=== PATIENT | female | born 1975 | race African-American/Black ===

== ENCOUNTER 2017-01-19 16:41 | Emergency (ER) | payer OTHER, MEDICAID ==
[2017-01-19 17:21] LABS: ABSOLUTE LYMPHOCYTES (AUTO) 2.1 10^3/uL (0.5-4.7); ABSOLUTE MONOCYTES (AUTO) 0.4 10^3/uL (0.1-1.4); ABSOLUTE NEUT (AUTO) 3.5 10^3/uL (1.7-8.2); BASOPHILS % (AUTO) 0.4 % (0-2); EOSINOPHILS % (AUTO) 0.6 % (0-6); HEMATOCRIT 40.6 % (36.0-47.0); HEMOGLOBIN 13.6 g/dL (12.0-15.5); HGB HCT DIFFERENCE 0.2; LYMPHOCYTES % (AUTO) 34.2 % (13-45); MEAN CORPUSCULAR HEMOGLOBIN 30.3 pg (27.0-33.4); MEAN CORPUSCULAR HGB CONC 33.4 g/dL (32.0-36.0); MEAN CORPUSCULAR VOLUME 91 fl (80-97); MONOCYTES % (AUTO) 7.2 % (3-13); RED BLOOD COUNT 4.47 10^6/uL (3.72-5.28); RED CELL DISTRIBUTION WIDTH 14.6 % (11.5-14.0); SEGMENTED NEUTROPHILS % (AUTO) 57.6 % (42-78); WHITE BLOOD COUNT 6.1 10^3/uL (4.0-10.5)
[2017-01-19 17:32] LABS: ALANINE AMINOTRANSFERASE 29 U/L (9-52); ALBUMIN 3.9 g/dL (3.5-5.0); ALKALINE PHOSPHATASE 161 U/L (38-126); ANION GAP 15 (5-19); ASPARTATE AMINO TRANSFERASE 17 U/L (14-36); BILIRUBIN,DIRECT 0.3 mg/dL (0.0-0.4); BILIRUBIN,TOTAL 0.4 mg/dL (0.2-1.3); BLOOD UREA NITROGEN 10 mg/dL (7-20); CALCIUM 9.3 mg/dL (8.4-10.2); CARBON DIOXIDE 19 mmol/L (22-30); CHLORIDE 107 mmol/L (98-107); CREATININE RESULT 0.83 mg/dL (0.52-1.25); GLUCOSE 100 mg/dL (75-110); POTASSIUM 4.5 mmol/L (3.6-5.0); SODIUM 140.7 mmol/L (137-145); TOTAL PROTEIN 7.6 g/dL (6.3-8.2)
[2017-01-19 17:34] LABS: ALCOHOL < 10 mg/dL (NONE DETECTED)
--- NOTE | 2017-01-19 17:37 | ER Document Report ---
ED Psych Disorder / Suicide - General Mode of Arrival: Medic Information source: Patient, Emergency Med Personnel TRAVEL OUTSIDE OF THE [place] IN LAST 30 DAYS: No - HPI Patient complains to provider of: Bizarre behavior, Hallucinating <ARTIE CHANG - Last Filed: 01/19/17 18:33> - General Cannot obtain history due to: Altered mental status - HPI Quality of pain: No pain Normal mood: No Associated symptoms: Flight of ideas, Labile, Mandaeism preoccupation, Visual hallucinations <CHINO LINDA - Last Filed: 01/19/17 20:05> - General Chief Complaint: Psych Problem Stated Complaint: PSYCH EVAL Time Seen by Provider: 01/19/17 16:59 Notes: Is a 41-year-old female who comes in after she is talking to herself and seemingly talking to other people. Patient is unable to give me any history as she continues to argue with somebody in the room that is not there. Apparently , was brought in by EMS from her boyfriend's house. She has not been sleeping at home. Possibly given a sleeping pill recently. (CHINO LINDA) - Related Data Allergies/Adverse Reactions: Unable to Assess Allergy (Verified 01/19/17 16:58) Past Medical History - Social History Smoking Status: Unknown if Ever Smoked Chew tobacco use (# tins/day): - unable to obtain Frequency of alcohol use: unable to obtain Drug Abuse: Heroin Patient has suicidal ideation: No Patient has homicidal ideation: No Renal/ Medical History: Denies: Hx Peritoneal Dialysis Psychiatric Medical History: Reports: Hx Bipolar Disorder, Hx Schizophrenia Surgical Hx: Other <ARTIE CHANG - Last Filed: 01/19/17 18:33> - General Cannot obtain history due to: Altered mental status - Social History Family History: None <CHINO LINDA - Last Filed: 01/19/17 20:05> Review of Systems - Review of Systems -: Yes ROS unobtainable due to patient's medical condition <CHINO LINDA - Last Filed: 01/19/17 20:05> Physical Exam - Vital signs Interpretation: Normal - General General appearance: Alert - Respiratory Respiratory status: No respiratory distress Breath sounds: Normal - Cardiovascular Rhythm: Regular - Abdominal Inspection: Normal Tenderness: Nontender - Extremities General upper extremity: Normal inspection, Normal ROM General lower extremity: Normal inspection, Normal ROM - Neurological Neuro grossly intact: Yes - Psychological Associated symptoms: Agitated, Mandaeism preoccupation - Is talking loudly to somebody who is not in the room., Visual hallucinations - Skin Skin Temperature: Warm Skin Moisture: Dry Skin Color: Normal <CHINO LINDA - Last Filed: 01/19/17 20:05> - Vital signs Vitals: Temp Pulse Resp BP Pulse Ox 98.9 F 100 20 118/85 97 01/19/17 16:58 01/19/17 16:58 01/19/17 16:58 01/19/17 16:58 01/19/17 16:58 Course - Laboratory Result Diagrams: 01/19/17 17:00 01/19/17 17:00 <ARTIE CHANG - Last Filed: 01/19/17 18:33> - Laboratory Result Diagrams: 01/19/17 17:00 01/19/17 17:00 <CHINO LINDA - Last Filed: 01/19/17 20:05> - Re-evaluation Re-evalutation: 01/19/17 19:04 Patient is a 41-year-old female who comes in with hallucinations and evangelical preoccupation. Apparently has not been sleeping recently. No acute findings on blood work or urine. Patient will be placed on involuntary commitment paperwork and held for evaluation by mental health in the morning. (CHINO LINDA) - Vital Signs Vital signs: Temp Pulse Resp BP Pulse Ox 98.9 F 100 20 118/85 97 01/19/17 16:58 01/19/17 16:58 01/19/17 16:58 01/19/17 16:58 01/19/17 16:58 - Laboratory Laboratory results interpreted by me: 01/19/17 01/19/17 01/19/17 17:00 17:00 17:00 RDW 14.6 H Carbon Dioxide 19 L Alkaline Phosphatase 161 H Urine Glucose (UA) 50 H Salicylates < 1.0 L Acetaminophen < 10 L Discharge <ARTIE CHANG - Last Filed: 01/19/17 18:33> <CHINO LINDA - Last Filed: 01/19/17 20:05> - Discharge Clinical Impression: Hallucinations Condition: Stable Disposition: OTHER Scribe Attestation: 01/19/17 20:05 I personally performed the services described in the documentation, reviewed and edited the documentation which was dictated to the scribe in my presence, and it accurately records my words and actions. (CHINO LINDA
[2017-01-19 17:48] LABS: APPEARANCE,URINE SLIGHTLY-CLOUDY; BILIRUBIN,URINE NEGATIVE (NEGATIVE); GLUCOSE, URINE 50 mg/dL (NEGATIVE); KETONES,URINE NEGATIVE (NEGATIVE); LEUKOCYTE ESTERASE,URINE NEGATIVE (NEGATIVE); NITRITE,URINE NEGATIVE (NEGATIVE); PROTEIN,URINE NEGATIVE (NEGATIVE); URINE SPECIFIC GRAVITY 1.006; UROBILINOGEN,URINE NEGATIVE mg/dL (<2.0)
[2017-01-19 18:02] LABS: URINE BARBITURATES SCREEN NEGATIVE; URINE METHADONE SCREEN NEGATIVE; URINE OPIATES LOW NEGATIVE; URINE PHENCYCLIDINE SCREEN NEGATIVE
[2017-01-19] MEDS ORDERED: OLANZAPINE 5 MG TAB.RAPDIS PO ONE (18:37)
[2017-01-19] MEDS ORDERED: HALOPERIDOL 1 MG TABLET PO ONE (20:55)
--- NOTE | 2017-01-20 11:17 | ER Document Report ---
Doctor's Note Notes: 01/20/17 11:17 Rounds: Chart reviewed and patient interviewed. Patient says she is here because she has been hearing voices and talking to people. Vital signs are all normal. Labs have also been normal. test was not ordered. Patient not sure when she had her last cycle. She says that she never gets . She is complaining of back pain and wants pain medications. Says that she had MRIs and other studies done in [place] which showed a small protruding disc , which I pointed out to the patient is likely normal. Patient appears to be medically stable for transfer or discharge. Roula López MD
[2017-01-20] MEDS ORDERED: ACETAMINOPHEN SOLN 325 MG/10.15 ML UDCUP PO PRN (11:19)
[2017-01-20] MEDS ORDERED: NICOTINE 21 MG/24 HR PATCH.TD24 TD PRN (18:13)
[2017-01-20] MEDS ORDERED: HALOPERIDOL 5 MG TABLET PO PRN (18:14)
[2017-01-20] MEDS ORDERED: FLUPHENAZINE HCL 2.5 MG TABLET PO SCH (19:00)
[2017-01-20] MEDS ORDERED: FLUPHENAZINE HCL 2.5 MG TABLET PO ONE (20:00)
--- NOTE | 2017-01-21 09:29 | EKG REPORT ---
SEVERITY:- BORDERLINE ECG - SINUS TACHYCARDIA BORDERLINE T WAVE ABNORMALITIES : Confirmed by: Gustavo Koch 21-Jan-2017 09:27:54
--- NOTE | 2017-01-21 09:54 | ER Document Report ---
Doctor's Note Notes: 01/21/17 09:53 This chart reviewed, lab and vital signs have remained stable, patient was interviewed at bedside, patient appears to be responding to internal stimuli as I enter the room as she is talking out loud and appears to be having a conversation with someone that is not in the room, she denies having any complaints at present time, states she took a shower today, no complaints or issues overnight, mental health team is currently trying to find placement for patient
[2017-01-21] MEDS ORDERED: BENZTROPINE MESYLATE 1 MG TABLET PO SCH (10:00)
[2017-01-21] MEDS ORDERED: FLUPHENAZINE HCL 2.5 MG TABLET PO SCH (10:00)
[2017-01-21 16:27] VITALS: BP 131/77
--- NOTE | 2017-01-21 18:28 | ER Document Report ---
ED Psych Disorder / Suicide - General Chief Complaint: Psych Problem Stated Complaint: PSYCH EVAL Time Seen by Provider: 01/20/17 14:00 Mode of Arrival: Medic Information source: Patient TRAVEL OUTSIDE OF THE [place] IN LAST 30 DAYS: No - HPI Patient complains to provider of: Bizarre behavior Onset was: Cannot confirm Quality of pain: No pain, Pressure Severity: None Pain Level: Denies Suicide Risk Factors: Bipolar - Schizoaffective Bipolar Type, Hallucinations, Schizophrenia Normal mood: No Associated symptoms: Auditory hallucinations, Flight of ideas, Manic, Psychomotor agitation, Alevism preoccupation, Tactile hallucinations, Unable to sleep, Visual hallucinations Similar symptoms previously: Yes Recently seen / treated by doctor: No Notes: Observed Patient a while before attempting consult. y responding as though she was being touched by someone. She was noted to be having conversations with multiple people who were note present. She was actively engaged in the conversation as if people were sitting in her room. Patient was at times hysterically laughing, and was noted to be physically moving in her bed as though she was being touched. Approached Patient and asked to speak with her. She asked me to wait a minute while she finished her conversation with God. When complete she could advise who and where she was. During the conversation she was frequently distracted by the voices of "satan" and "god." She was able to focus in short spurts when asked and little information was obtained, however , she shared she was previously taking Prolixin Decoanate, Haldol, Invega, Depakote and she has diabetes, hypertension, and hypercholesteremia. She reported a long mental health history and indicated she was just released from a psychiatric hospital in [facility] three weeks ago. She currently lives with her boyfriend who is 29 years of age and is willing to have her come home when she is discharged. During the evaluation Patient was noted to "change personalities" as evidenced by easily switching between first and third person when talking, showing her body to make a lunging movement when her "identity" changed, and a noticeable voice change as well. At times, Patient demonstrated moments of lucidity and awareness, but most times she actively engaged with her voices and individuals and preferred conversation / interaction with them versus reality. Review of chart revealed she had not slept much and was mostly non-stop talking since arrival. Patient expressed the desire for medication to "sedate the spirits even though I will be sedated as well. Give me anything you got." Patient was alert and oriented to person (at times), place, and situation. Her estimate of time was incorrect. Her mood was pleasant and cooperative, with congruent affect. She denied suicidal / homicidal ideation, intent, or plan. Psychosis was observed and reported in terms of visual, auditory, and tactile hallucinations. Thought processes were disorganized and irrational. Conversational speech was pressured and tangential. Intellectual abilities are estimated within the average range. Recent and remote memory are poor. Attention and concentration were impaired, as was insight, judgment, and impulse control. 1. 295.70 (F25.0) Schizoaffective Disorder, Bipolar Type Impression / Plan: Patient is recommended to continue under IVC. She remains psychotic and responding to internal stimuli. She continues to have difficulty sleeping but demonstrates no aggression or inappropriate behavior. She has moments of lucidity but mostly remains in an alternate reality. ED Physician in agreement with recommendation and disposition. - Related Data Allergies/Adverse Reactions: No Known Allergies Allergy (Unverified 01/20/17 20:22) Past Medical History - General Information source: Patient, Emergency Med Personnel - Social History Smoking Status: Unknown if Ever Smoked Chew tobacco use (# tins/day): - unable to obtain Frequency of alcohol use: unable to obtain Drug Abuse: Heroin Family History: None Patient has suicidal ideation: No Patient has homicidal ideation: No Renal/ Medical History: Denies: Hx Peritoneal Dialysis Psychiatric Medical History: Reports: Hx Bipolar Disorder, Hx Schizophrenia Surgical Hx: Other Physical Exam - Vital signs Vitals: Temp Pulse Resp BP Pulse Ox 98.9 F 100 20 118/85 97 01/19/17 16:58 01/19/17 16:58 01/19/17 16:58 01/19/17 16:58 01/19/17 16:58 Course - Vital Signs Vital signs: Temp Pulse Resp BP Pulse Ox 98.2 F 113 H 18 131/77 H 98 01/21/17 15:16 01/21/17 15:16 01/21/17 06:17 01/21/17 15:16 01/21/17 15:16 - Laboratory Result Diagrams: 01/19/17 17:00 01/19/17 17:00 Laboratory results interpreted by me: 01/19/17 01/19/17 01/19/17 17:00 17:00 17:00 RDW 14.6 H Carbon Dioxide 19 L Alkaline Phosphatase 161 H Urine Glucose (UA) 50 H Salicylates < 1.0 L Acetaminophen < 10 L Discharge - Discharge Clinical Impression: Hallucinations, Schizoaffective disorder, bipolar type Condition: Stable Disposition: PSYCH HOSP/UNIT Additional Instructions: Eliana Pimentel on 01.21.2017 Scribe Attestation: 01/19/17 20:05 I personally performed the services described in the documentation, reviewed and edited the documentation which was dictated to the scribe in my presence, and it accurately records my words and actions.
== END 2017-01-21 16:37 ==
LOC: ER 16:41
DX: F25.0 Schizoaffective disorder, bipolar type (principal); I10 Essential (primary) hypertension; E11.9 Type 2 diabetes mellitus without complications; M54.9 Dorsalgia, unspecified
CPT/HCPCS: 93005; 99285; 36415; 80307 ×4; 84703; 85025; 80053; 81001; 93010; J3490 ×7

== ENCOUNTER 2017-04-18 13:19 | Emergency (ER) | payer MEDICAID, OTHER ==
--- NOTE | 2017-04-18 13:38 | ER Document Report ---
ED Psych Disorder / Suicide - General Mode of Arrival: Medic Information source: Patient, Emergency Med Personnel Cannot obtain history due to: Other - psychosis TRAVEL OUTSIDE OF THE [place] IN LAST 30 DAYS: No - HPI Normal mood: No Similar symptoms previously: Yes <RENEE BOWEN - Last Filed: 04/18/17 13:50> <YVONNE RIZVI - Last Filed: 04/18/17 14:37> <DONNIE KRUSE - Last Filed: 04/18/17 17:58> - General Chief Complaint: Psych Problem Stated Complaint: ALTERED MENTAL STATUS Time Seen by Provider: 04/18/17 13:30 Notes: Patient is a 41-year-old female who presents to the emergency department today secondary to visual and auditory hallucinations. Patient has been off her psychiatric medications for an unknown period of time. Patient has a diagnosis of schizophrenia and bipolar disorder and has had numerous inpatient stays in psychiatric facilities. Patient had an identical presentation to this emergency department on 01/19/2017. Upon entry into the room, the patient is talking quite fast and loudly to someone who is not in the room. Patient states that she is here because "she does not have anything to do". History is limited secondary to the patient's psychosis. (RENEE BOWEN) - HPI Notes: Observed Patient for awhile before attempting evaluation: Patient is noted to be having conversations with multiple people (patient was alone in room). Patient appeared to be receiving command hallucinations; "What?...Why do I want to fight?" Patient is also noted to clap and laugh at times during these "conversations." She does attempt to keep her eyes closed and is noted to be physically moving in her bed as though she was being touched. During evaluation, she was actively engaged in the conversation as if multiple people were sitting in her room. When clinician asked how the patient was feeling, patient replied "not good....What am I supposed to say y'all...now that is rude..." Patient continued to state "I don't want to be here...just want to go back to the grave...my boring life..." Patient was asked if she had any questions for the clinician; she requested ice water. When clinician came back with ice water, patient was actively engaged in a conversation, eyes open and looking at the wall. Upon entering, patient requested clinician to wait a minute to finish her conversation(again it is noted the patient was alone in the room until clinician entered). She was able to focus in short spurts but quickly derailed with disorganized thought process. Patient was alert and orientation was difficult to determine but it appears she is aware she is in the hospital. Mood is manic with labile affect. Patient appears to make some suicidal comments; it is unclear the context since she is presenting in acute psychosis. Psychosis was observed and reported in terms of visual, auditory, and tactile hallucinations. Thought processes were disorganized and irrational. Conversational speech was pressured and tangential. Intellectual abilities are estimated within the average range. Cognitive functions are impaired (i.e. attention, concentration, insight, judgement and impulse control). 1. 295.70 (F25.0) Schizoaffective Disorder, Bipolar Type per history Impression / Plan: Patient is recommended for IVC. She presences in acute psychotic and responding to internal stimuli. She has moments of lucidity but mostly remains in an alternate reality. Broderick Domingo was consulted on the care and management of this patient; attending physician in agreement with recommendation and disposition. (YVONNE RIZVI) - Related Data Allergies/Adverse Reactions: No Known Allergies Allergy (Verified 04/18/17 13:35) Past Medical History - General Information source: [facility], [facility] Records Cannot obtain history due to: Other - due to psychosis - Social History Smoking Status: Unknown if Ever Smoked Lives with: Family Family History: None Psychiatric Medical History: Reports: Hx Bipolar Disorder, Hx Schizophrenia Surgical Hx: Negative <RENEE BOWEN - Last Filed: 04/18/17 13:50> Review of Systems - Review of Systems -: Yes ROS unobtainable due to patient's medical condition <RENEE BOWEN - Last Filed: 04/18/17 13:50> Physical Exam <RENEE BOWEN - Last Filed: 04/18/17 13:50> <YVONNE RIZVI - Last Filed: 04/18/17 14:37> <DONNIE KRUSE - Last Filed: 04/18/17 17:58> - Vital signs Vitals: Temp Pulse Resp BP Pulse Ox 98.8 F 133 H 24 H 154/97 H 98 04/18/17 13:32 04/18/17 13:32 04/18/17 13:32 04/18/17 13:32 04/18/17 13:32 - Notes Notes: Physical Exam: General: Alert, appears well. HEENT: Normocephalic. Atraumatic. PERRLA. Extraocular movements intact. Oropharynx clear. Neck: Supple. Respiratory: No respiratory distress. Abdominal: Normal Inspection. No distension. Extremities: Moves all four extremities. Neurological: Normal cognition. AAOx4. Normal speech. Psychological: Agitated, talking quite fast and loudly to someone who is not in the room. Visual and auditory hallucinations. Patient had an identical presentation here on 01/19/2017. Skin: Warm. Dry. Normal color. (RENEE BOWEN) Course - Laboratory Result Diagrams: 04/18/17 14:15 04/18/17 14:15 <YVONNE RIZVI - Last Filed: 04/18/17 14:37> - Laboratory Result Diagrams: 04/18/17 14:15 04/18/17 14:15 - EKG Interpretation by Wy EKG shows normal: Sinus rhythm, [place], Intervals, QRS Complexes, ST-T Waves Rate: Normal - 96 Rhythm: NSR When compared to previous EKG there are: No significant change <DONNIE KRUSE - Last Filed: 04/18/17 17:58> - Vital Signs Vital signs: Temp Pulse Resp BP Pulse Ox 98.8 F 133 H 24 H 154/97 H 98 04/18/17 13:32 04/18/17 13:32 04/18/17 13:32 04/18/17 13:32 04/18/17 13:32 - Laboratory Laboratory results interpreted by ar: 04/18/17 04/18/17 04/18/17 14:05 14:15 14:15 RDW 14.9 H Calcium 10.3 H Alkaline Phosphatase 134 H Urine Protein 30 H Urine Glucose (UA) 50 H Urine Ketones TRACE H Urine Ascorbic Acid 40 H Salicylates < 1.0 L Acetaminophen < 10 L Discharge <RENEE BOWEN - Last Filed: 04/18/17 13:50> <YVONNE RIZVI - Last Filed: 04/18/17 14:37> <DONNIE KRUSE - Last Filed: 04/18/17 17:58> - Discharge Clinical Impression: Schizoaffective disorder, Hallucination, Cocaine abuse, Noncompliance with medication regimen Bipolar disorder Qualifiers: Active/Remission status: currently active Current bipolar episode type: hypomanic Qualified Code(s): F31.0 - Bipolar disorder, current episode hypomanic Condition: Stable Disposition: PSYCH HOSP/UNIT Scribe Attestation: 04/18/17 15:49 I personally performed the services described in the documentation, reviewed and edited the documentation which was dictated to the scribe in my presence, and it accurately records my words and actions. (DONNIE KRUSE) Scribe Documentation - Scribe Written by Coco:: Coco Tirado, 04/18/2017 1400 acting as scribe for :: Harlan <RENEE BOWEN - Last Filed: 04/18/17 13:50>
[2017-04-18 14:37] LABS: ABSOLUTE MONOCYTES (AUTO) 0.3 10^3/uL (0.1-1.4); MEAN CORPUSCULAR HEMOGLOBIN 30.2 pg (27.0-33.4)
[2017-04-18 14:37] LABS: APPEARANCE,URINE SLIGHTLY-CLOUDY; BILIRUBIN,URINE NEGATIVE (NEGATIVE); GLUCOSE, URINE 50 mg/dL (NEGATIVE); KETONES,URINE TRACE mg/dL (NEGATIVE); LEUKOCYTE ESTERASE,URINE NEGATIVE (NEGATIVE); NITRITE,URINE NEGATIVE (NEGATIVE); PROTEIN,URINE 30 mg/dL (NEGATIVE); URINE SPECIFIC GRAVITY 1.026; UROBILINOGEN,URINE NEGATIVE mg/dL (<2.0)
[2017-04-18 14:42] LABS: ABSOLUTE LYMPHOCYTES (AUTO) 1.7 10^3/uL (0.5-4.7); ABSOLUTE NEUT (AUTO) 3.1 10^3/uL (1.7-8.2); BASOPHILS % (AUTO) 0.7 % (0-2); EOSINOPHILS % (AUTO) 0.5 % (0-6); HEMATOCRIT 41.5 % (36.0-47.0); HEMOGLOBIN 13.9 g/dL (12.0-15.5); HGB HCT DIFFERENCE 0.2; LYMPHOCYTES % (AUTO) 32.3 % (13-45); MEAN CORPUSCULAR HGB CONC 33.5 g/dL (32.0-36.0); MEAN CORPUSCULAR VOLUME 90 fl (80-97); MONOCYTES % (AUTO) 6.7 % (3-13); RED BLOOD COUNT 4.59 10^6/uL (3.72-5.28); RED CELL DISTRIBUTION WIDTH 14.9 % (11.5-14.0); SEGMENTED NEUTROPHILS % (AUTO) 59.8 % (42-78); WHITE BLOOD COUNT 5.2 10^3/uL (4.0-10.5)
[2017-04-18 14:48] LABS: URINE BARBITURATES SCREEN NEGATIVE; URINE METHADONE SCREEN NEGATIVE; URINE OPIATES LOW NEGATIVE; URINE PHENCYCLIDINE SCREEN NEGATIVE
[2017-04-18] MEDS ORDERED: HALOPERIDOL 5 MG TABLET PO PRN (14:57)
[2017-04-18] MEDS ORDERED: OLANZAPINE 5 MG TAB.RAPDIS PO ONE (14:57)
[2017-04-18 14:58] LABS: ALANINE AMINOTRANSFERASE 29 U/L (9-52); ALBUMIN 4.1 g/dL (3.5-5.0); ALKALINE PHOSPHATASE 134 U/L (38-126); ANION GAP 11 (5-19); ASPARTATE AMINO TRANSFERASE 19 U/L (14-36); BILIRUBIN,DIRECT 0.3 mg/dL (0.0-0.4); BILIRUBIN,TOTAL 0.6 mg/dL (0.2-1.3); BLOOD UREA NITROGEN 11 mg/dL (7-20); CALCIUM 10.3 mg/dL (8.4-10.2); CARBON DIOXIDE 23 mmol/L (22-30); CHLORIDE 106 mmol/L (98-107); CREATININE RESULT 0.84 mg/dL (0.52-1.25); GLUCOSE 108 mg/dL (75-110); POTASSIUM 4.5 mmol/L (3.6-5.0); SODIUM 140.3 mmol/L (137-145); TOTAL PROTEIN 7.6 g/dL (6.3-8.2)
[2017-04-18] MEDS ORDERED: BENZTROPINE MESYLATE 1 MG TABLET PO SCH (15:00)
[2017-04-18 15:02] LABS: ALCOHOL < 10 mg/dL (NONE DETECTED)
[2017-04-18] MEDS ORDERED: BENZTROPINE MESYLATE 1 MG TABLET PO ONE (17:00)
[2017-04-18] MEDS: FLUPHENAZINE HCL 2.5 MG TABLET PO SCH (18:16)
--- NOTE | 2017-04-18 18:46 | EKG REPORT ---
SEVERITY:- NORMAL ECG - SINUS RHYTHM : Confirmed by: Felipe Thompson MD 18-Apr-2017 18:46:17
--- NOTE | 2017-04-19 09:35 | ER Document Report ---
Doctor's Note Notes: 04/19/17 09:34 Patient resting comfortably on stretcher, chart was reviewed including presentation, history, labs and vital signs, patient continues to respond to internal stimuli, makes no eye contact on my questioning and does not answer my questions at all, patient has been seen and evaluated by mental health team who recommended for continued hospitalization until appropriate inpatient treatment can be secured 04/19/17 10:54 Patient remains restrained free at this point in time, she is calm and cooperative although continues to respond to internal stimuli, does not pose a threat to herself or others at this point in time while in the emergency room
[2017-04-19] MEDS: FLUPHENAZINE HCL 2.5 MG TABLET PO SCH (10:17)
[2017-04-19 14:11] VITALS: BP 131/75
== END 2017-04-19 14:21 ==
LOC: ER 13:19
DX: F25.9 Schizoaffective disorder, unspecified (principal); R44.3 Hallucinations, unspecified; F14.10 Cocaine abuse, uncomplicated; F31.0 Bipolar disorder, current episode hypomanic; R41.82 Altered mental status, unspecified; Z91.14 Patient's other noncompliance with medication regimen
CPT/HCPCS: 93005; 99285; 36415; 80307 ×4; 84703; 85025; 80053; 81001; 93010; J3490 ×6

== ENCOUNTER 2017-05-15 03:03 | Emergency (ER) | payer OTHER ==
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
[2017-05-15 04:03] LABS: ABSOLUTE EOSINOPHILS # (AUTO) 0.1 10^3/uL (0.0-0.6); ABSOLUTE LYMPHOCYTES (AUTO) 1.3 10^3/uL (0.5-4.7); ABSOLUTE MONOCYTES (AUTO) 0.4 10^3/uL (0.1-1.4); ABSOLUTE NEUT (AUTO) 3.9 10^3/uL (1.7-8.2); BASOPHILS % (AUTO) 0.2 % (0-2); EOSINOPHILS % (AUTO) 1.1 % (0-6); HEMATOCRIT 38.1 % (36.0-47.0); HEMOGLOBIN 13.3 g/dL (12.0-15.5); HGB HCT DIFFERENCE 1.8; LYMPHOCYTES % (AUTO) 23.8 % (13-45); MEAN CORPUSCULAR HEMOGLOBIN 30.7 pg (27.0-33.4); MEAN CORPUSCULAR VOLUME 88 fl (80-97); MONOCYTES % (AUTO) 6.5 % (3-13); RED BLOOD COUNT 4.34 10^6/uL (3.72-5.28); RED CELL DISTRIBUTION WIDTH 14.8 % (11.5-14.0); SEGMENTED NEUTROPHILS % (AUTO) 68.4 % (42-78); WHITE BLOOD COUNT 5.6 10^3/uL (4.0-10.5)
[2017-05-15 04:17] LABS: ALANINE AMINOTRANSFERASE 29 U/L (9-52); ALKALINE PHOSPHATASE 139 U/L (38-126); ANION GAP 10 (5-19); ASPARTATE AMINO TRANSFERASE 15 U/L (14-36); BILIRUBIN,DIRECT 0.3 mg/dL (0.0-0.4); BILIRUBIN,TOTAL 0.5 mg/dL (0.2-1.3); BLOOD UREA NITROGEN 12 mg/dL (7-20); CALCIUM 10.6 mg/dL (8.4-10.2); CARBON DIOXIDE 23 mmol/L (22-30); CHLORIDE 107 mmol/L (98-107); CREATININE RESULT 0.88 mg/dL (0.52-1.25); GLUCOSE 114 mg/dL (75-110); POTASSIUM 4.1 mmol/L (3.6-5.0); SODIUM 140.2 mmol/L (137-145); TOTAL PROTEIN 7.6 g/dL (6.3-8.2)
[2017-05-15 04:18] LABS: ALCOHOL < 10 mg/dL (NONE DETECTED)
[2017-05-15 04:48] LABS: FREE T3 4.54 pg/mL (2.77-5.27)
[2017-05-15 05:01] LABS: THYROID STIMULATING HORMONE 3.36 uIU/mL (0.47-4.68)
[2017-05-15] MEDS ORDERED: OLANZAPINE INJ/PF 10 MG SDV IM ONE (07:52)
[2017-05-15] MEDS ORDERED: BENZTROPINE MESYLATE INJ 2 MG/2 ML AMPULE IM ONE (07:53)
--- NOTE | 2017-05-15 07:56 | ER Document Report ---
Doctor's Note Notes: 05/15/17 07:55 Patient responding to internal stimuli. Patient acutely psychotic patient was evaluated by psychiatric team recommended medications these were ordered at this time.
[2017-05-15 09:13] LABS: APPEARANCE,URINE CLEAR; BILIRUBIN,URINE NEGATIVE (NEGATIVE); GLUCOSE, URINE NEGATIVE (NEGATIVE); KETONES,URINE TRACE mg/dL (NEGATIVE); LEUKOCYTE ESTERASE,URINE NEGATIVE (NEGATIVE); NITRITE,URINE NEGATIVE (NEGATIVE); PROTEIN,URINE NEGATIVE (NEGATIVE); URINE SPECIFIC GRAVITY 1.008; UROBILINOGEN,URINE NEGATIVE mg/dL (<2.0)
[2017-05-15 09:16] LABS: URINE BARBITURATES SCREEN NEGATIVE; URINE METHADONE SCREEN NEGATIVE; URINE OPIATES LOW NEGATIVE; URINE PHENCYCLIDINE SCREEN NEGATIVE
--- NOTE | 2017-05-15 09:23 | ER Document Report ---
ED General - General Chief Complaint: Suicidal Ideation Stated Complaint: SUICIDAL IDEATIONS Time Seen by Provider: 05/15/17 03:15 TRAVEL OUTSIDE OF THE [place] IN LAST 30 DAYS: No - Related Data Allergies/Adverse Reactions: No Known Allergies Allergy (Verified 04/18/17 13:35) Past Medical History - General Information source: Patient, Law Enforcement, Emergency Med Personnel, [facility] Records - Social History Smoking Status: Unknown if Ever Smoked Chew tobacco use (# tins/day): No Frequency of alcohol use: None Drug Abuse: None Family History: None Renal/ Medical History: Denies: Hx Peritoneal Dialysis Psychiatric Medical History: Reports: Hx Bipolar Disorder, Hx Schizophrenia Physical Exam - Vital signs Vitals: Resp BP Pulse Ox 20 138/108 H 99 05/15/17 03:16 05/15/17 03:16 05/15/17 03:16 Course - Re-evaluation Re-evalutation: 05/15/17 09:23 As the unm hospitaling emergency physician I examined this patient. I reviewed the patient's chart. The patient is currently resting comfortably and requires no acute medical intervention. Disposition per psychiatry. - Vital Signs Vital signs: Temp Pulse Resp BP Pulse Ox 98.7 F 120 H 26 H 94/76 L 100 05/15/17 03:21 05/15/17 03:21 05/15/17 09:15 05/15/17 09:01 05/15/17 09:15 - Laboratory Result Diagrams: 05/15/17 03:40 05/15/17 03:40 Laboratory results interpreted by me: 05/15/17 05/15/17 05/15/17 03:40 03:40 03:40 RDW 14.8 H Glucose 114 H Calcium 10.6 H Alkaline Phosphatase 139 H Urine Ketones Salicylates < 1.0 L Acetaminophen < 10 L Valproic Acid < 10.0 L 05/15/17 08:38 RDW Glucose Calcium Alkaline Phosphatase Urine Ketones TRACE H Salicylates Acetaminophen Valproic Acid Discharge - Discharge Clinical Impression: Suicidal ideation Condition: Stable Disposition: PSYCH HOSP/UNIT
[2017-05-15] MEDS: FLUPHENAZINE HCL 2.5 MG TABLET PO SCH ×2 (10:05→18:26)
[2017-05-15] MEDS: OLANZAPINE 5 MG TABLET PO SCH ×2 (10:05→18:26)
[2017-05-15] MEDS: DIVALPROEX SODIUM 500 MG TAB.SR.24H PO SCH ×2 (10:05→18:25)
[2017-05-15] MEDS: BENZTROPINE MESYLATE 1 MG TABLET PO SCH ×2 (10:05→18:27)
[2017-05-15] MEDS ORDERED: OLANZAPINE 5 MG TABLET PO ONE (13:45)
[2017-05-15] MEDS ORDERED: BENZTROPINE MESYLATE 1 MG TABLET PO ONE (13:45)
[2017-05-15] MEDS ORDERED: DIVALPROEX SODIUM 500 MG TAB.SR.24H PO ONE (14:00)
[2017-05-15] MEDS ORDERED: FLUPHENAZINE HCL 2.5 MG TABLET PO ONE (14:00)
[2017-05-15] MEDS ORDERED: HALOPERIDOL LACTATE INJ 5 MG/1 ML VIAL IM PRN (18:36)
[2017-05-16] MEDS: DIVALPROEX SODIUM 500 MG TAB.SR.24H PO SCH (09:50)
[2017-05-16] MEDS: OLANZAPINE 5 MG TABLET PO SCH (09:51)
[2017-05-16] MEDS: FLUPHENAZINE HCL 2.5 MG TABLET PO SCH (09:51)
[2017-05-16] MEDS: BENZTROPINE MESYLATE 1 MG TABLET PO SCH (09:51)
[2017-05-16 11:10] VITALS: BP 102/61
--- NOTE | 2017-05-16 11:33 | ER Document Report ---
Doctor's Note Notes: 05/16/17 11:31 Patient was seen. Stable at this time. Bed has been obtained for her at an inpatient mental health facility. Nothing acute at this time. Patient is stable from medical standpoint for transfer. EMTLA has been completed. Patient transferred at this time. 05/16/17 11:32
== END 2017-05-16 11:51 ==
LOC: ER 03:03
DX: R45.851 Suicidal ideations (principal); F25.0 Schizoaffective disorder, bipolar type; Z91.14 Patient's other noncompliance with medication regimen; R00.0 Tachycardia, unspecified; R45.4 Irritability and anger
CPT/HCPCS: 99285; 96372; 36415; 84439; 80307 ×4; 84443; 84703; 85025; 80053; 81001; 80164; 84481; J3490 ×8; J0515; J1630

== ENCOUNTER 2017-07-13 16:54 | Emergency (ER) | payer MEDICAID ==
[2017-07-13 18:40] LABS: ABSOLUTE EOSINOPHILS # (AUTO) 0.1 10^3/uL (0.0-0.6); ABSOLUTE LYMPHOCYTES (AUTO) 2.1 10^3/uL (0.5-4.7); ABSOLUTE MONOCYTES (AUTO) 0.4 10^3/uL (0.1-1.4); ABSOLUTE NEUT (AUTO) 3.8 10^3/uL (1.7-8.2); BASOPHILS % (AUTO) 0.2 % (0-2); HEMATOCRIT 37.4 % (36.0-47.0); HEMOGLOBIN 12.9 g/dL (12.0-15.5); HGB HCT DIFFERENCE 1.3; LYMPHOCYTES % (AUTO) 32.8 % (13-45); MEAN CORPUSCULAR HEMOGLOBIN 30.9 pg (27.0-33.4); MEAN CORPUSCULAR HGB CONC 34.4 g/dL (32.0-36.0); MEAN CORPUSCULAR VOLUME 90 fl (80-97); MONOCYTES % (AUTO) 6.3 % (3-13); RED BLOOD COUNT 4.16 10^6/uL (3.72-5.28); RED CELL DISTRIBUTION WIDTH 14.2 % (11.5-14.0); SEGMENTED NEUTROPHILS % (AUTO) 59.7 % (42-78); WHITE BLOOD COUNT 6.3 10^3/uL (4.0-10.5)
[2017-07-13 18:43] LABS: APPEARANCE,URINE SLIGHTLY-CLOUDY; BILIRUBIN,URINE NEGATIVE (NEGATIVE); GLUCOSE, URINE NEGATIVE (NEGATIVE); KETONES,URINE NEGATIVE (NEGATIVE); LEUKOCYTE ESTERASE,URINE NEGATIVE (NEGATIVE); NITRITE,URINE NEGATIVE (NEGATIVE); PROTEIN,URINE NEGATIVE (NEGATIVE); UROBILINOGEN,URINE NEGATIVE mg/dL (<2.0)
[2017-07-13 18:54] LABS: ALANINE AMINOTRANSFERASE 27 U/L (9-52); ALBUMIN 4.1 g/dL (3.5-5.0); ALKALINE PHOSPHATASE 150 U/L (38-126); ANION GAP 9 (5-19); ASPARTATE AMINO TRANSFERASE 18 U/L (14-36); BILIRUBIN,DIRECT 0.4 mg/dL (0.0-0.4); BILIRUBIN,TOTAL 0.5 mg/dL (0.2-1.3); BLOOD UREA NITROGEN 12 mg/dL (7-20); CALCIUM 9.1 mg/dL (8.4-10.2); CARBON DIOXIDE 24 mmol/L (22-30); CHLORIDE 107 mmol/L (98-107); CREATININE RESULT 0.83 mg/dL (0.52-1.25); GLUCOSE 93 mg/dL (75-110); POTASSIUM 3.8 mmol/L (3.6-5.0); TOTAL PROTEIN 7.5 g/dL (6.3-8.2)
[2017-07-13 19:01] LABS: URINE BARBITURATES SCREEN NEGATIVE; URINE METHADONE SCREEN NEGATIVE; URINE OPIATES LOW NEGATIVE; URINE PHENCYCLIDINE SCREEN NEGATIVE
[2017-07-13 19:11] LABS: ALCOHOL < 10 mg/dL (NONE DETECTED)
[2017-07-13] MEDS ORDERED: DIPHENHYDRAMINE HCL 50 MG CAPSULE PO ONE (20:52)
[2017-07-13] MEDS ORDERED: HALOPERIDOL 5 MG TABLET PO ONE (20:52)
--- NOTE | 2017-07-13 20:52 | ER Document Report ---
ED General - General Chief Complaint: Psych Problem Stated Complaint: ALTERED MENTAL STATUS Time Seen by Provider: 07/13/17 18:13 Mode of Arrival: Medic Information source: Patient Notes: This is a 41-year-old female with a history of schizoaffective disorder, bipolar type who is brought in by EMS because of "isabel". Patient when asked why she is here she said that "that is between me and the spirit". The patient does appear somewhat agitated and tangential. She denies any suicidal homicidal ideations. TRAVEL OUTSIDE OF THE [place] IN LAST 30 DAYS: No - HPI Onset: Just prior to arrival Onset/Duration: Gradual Quality of pain: No pain Severity: None Pain Level: Denies Associated symptoms: denies: Chest pain, Fever, Shortness of breath Exacerbated by: Denies Relieved by: Denies Similar symptoms previously: Yes Recently seen / treated by doctor: No - Related Data Allergies/Adverse Reactions: No Known Allergies Allergy (Verified 06/19/17 19:01) Past Medical History - General Information source: Patient - Social History Smoking Status: Current Every Day Smoker Cigarette use (# per day): Yes - Half pack per day Chew tobacco use (# tins/day): No Frequency of alcohol use: None Drug Abuse: None Family History: None Patient has suicidal ideation: No Patient has homicidal ideation: No - Past Medical History Cardiac Medical History: Reports: Hx Hypercholesterolemia, Hx Hypertension Endocrine Medical History: Reports: Hx Diabetes Mellitus Type 2 Renal/ Medical History: Denies: Hx Peritoneal Dialysis Psychiatric Medical History: Reports: Hx Bipolar Disorder, Hx Schizophrenia Past Surgical History: Reports: Hx Section Review of Systems - Review of Systems Constitutional: denies: Chills, Fever EENT: No symptoms reported Cardiovascular: No symptoms reported Respiratory: No symptoms reported Gastrointestinal: No symptoms reported Genitourinary: No symptoms reported Female Genitourinary: No symptoms reported Musculoskeletal: No symptoms reported Skin: No symptoms reported Hematologic/Lymphatic: No symptoms reported Neurological/Psychological: See HPI Physical Exam - Vital signs Vitals: Temp Pulse Resp BP Pulse Ox 98.5 F 92 16 106/42 L 98 07/13/17 16:54 07/13/17 16:54 07/13/17 16:54 07/13/17 16:54 07/13/17 16:54 Notes: Physical exam: GENERAL: 41-year-old female, alert and oriented 3, no acute distress. HEAD: Atraumatic, normocephalic. EYES: Pupils equal round and reactive to light, extraocular movements intact, sclera anicteric, conjunctiva are normal. ENT: TMs normal, nares patent, oropharynx clear without exudates. Moist mucous membranes. NECK: Normal range of motion, supple without obvious mass or JVD. LUNGS: Breath sounds clear to auscultation bilaterally and equal. No wheezes rales or rhonchi. HEART: Regular rate and rhythm without murmurs, rubs or gallops. ABDOMEN: Soft, normoactive bowel sounds. No tenderness to palpation. No guarding, no rebound. No masses appreciated. EXTREMITIES: Normal range of motion, no pitting or edema. No clubbing or cyanosis. NEUROLOGICAL: Cranial nerves II through XII grossly intact. Normal speech, moving all extremities. PSYCH: Tangential, delusional. SKIN: Warm, Dry, normal turgor, no rashes or lesions noted. Course - Re-evaluation Re-evalutation: 07/14/17 01:39 Patient is medically stable for psychiatric disposition. - Vital Signs Vital signs: Temp Pulse Resp BP Pulse Ox 98.5 F 92 16 106/42 L 98 07/13/17 16:54 07/13/17 16:54 07/13/17 16:54 07/13/17 16:54 07/13/17 16:54 - Laboratory Result Diagrams: 07/13/17 18:20 07/13/17 18:20 Laboratory results interpreted by me: 07/13/17 07/13/17 18:20 18:20 RDW 14.2 H Alkaline Phosphatase 150 H Salicylates < 1.0 L Acetaminophen < 10 L - EKG Interpretation by Wy Rate: Normal Rhythm: NSR - EKG shows normal sinus rhythm with a ventricular rate of 81, no acute ST-T wave changes Discharge - Discharge Clinical Impression: Psychosis Condition: Stable Disposition: PSYCH HOSP/UNIT
[2017-07-13] MEDS ORDERED: LORAZEPAM 1 MG TABLET PO ONE (23:57)
--- NOTE | 2017-07-14 09:15 | EKG REPORT ---
SEVERITY:- ABNORMAL ECG - SINUS RHYTHM NONSPECIFIC ST-T CHANGES INFEROLATERAL LEADS. : Confirmed by: Felipe Thompson MD 14-Jul-2017 09:14:53
--- NOTE | 2017-07-14 10:22 | ER Document Report ---
Doctor's Note Notes: 07/14/17 10:20 Rounds: Chart reviewed and patient interviewed. Patient seems to be very alert and oriented and cooperative this morning. Says she feels better. Wants back pain medicines. Vital signs are all normal. Lab studies were all normal. Patient appears to be medically stable for transfer or discharge. Mental health has assessed the patient and feel she can be discharged for outpatient follow-up. Roula López MD
[2017-07-14 10:38] VITALS: BP 127/75
--- NOTE | 2017-07-14 14:09 | PSYCHOLOGICAL NOTE ---
Psych Note - Psych Note Psych Note: Patient is a 41 year old female who presented to the [facility] ED last evening after EMS brought her in for isabel (laughing inappropriately), auditory hallucinations (talking to people not present), and conversing with herself. Patient reported she is "fine" this morning and didn't remember why she was in the ED. She stated isabel and psychosis were common "before but not now." She reported her only medication is Metformin. She identified she is not seeing a psychiatrist currently but has in the past when she resided in a different state. When confronted about previous inpatient hospitalizations she did not deny. She reported she lives with a female roommate. She described the roommate as "nice" and then went on to say "she controls rules, orders me around but it is her house, talks about me, and tells lies about me." She started eating breakfast at the end of the evaluation. Patient was alert and oriented to person, place, and time. Mood was euthymic with congruent affect. She denied SI/HI and these were not presenting problems. She did not appear to be responding to internal stimuli AEB answering questions appropriately and staying on topic. Thought processes were linear and organized. Conversational speech was WNL for rate, tone and prosody. Intellectual abilities are estimated to be average. Insight, judgment and impulse control are fair AEB linear and organized thoughts. Chart review revealed patient had been to the [facility] ED for psychiatric related reasons current (07/13/17), 05/15/17, 04/18/2017, and 01/19/17. With the exception of current each time she was sent to inpatient ([facility], [facility], [facility] respectively) under an IVC. When confronted about her inpatient stay at [facility] in May 2017 she confirmed she had been discharged with medication but was unable to recall names. Documentation from previous visits noted patient reporting she has been hospitalized before, gets put on medications while inpatient, gets discharged and the medications no longer work. Diagnosis: 295.70 (F25.0) Schizoaffective Disorder, Bipolar Type by history Impression/Plan: Patient is psychiatrically cleared. She does not meet [place] 122[place] IVC criteria. She denied SI/HI since her arrival to the ED. Though she came in with isabel and psychosis she did not present as such during psychiatric evaluation. She was able to stay on topic and answer questions appropriately when addressed. She has been hospitalized inpatient 3 times this year and given she stated she does not have a psychiatrist (and hasn't since residing in another state) indicated she does not follow up with outpatient upon discharge from inpatient settings. Patient was provided with the outpatient resource list which highlighted both MCM numbers. She was instructed to continue medications last prescribed and to follow up with a behavioral health provider within the next 3-[address] Villafana regarding the management and care of patient. ED Physician in agreement with recommendations.
== END 2017-07-14 10:38 | disposition home or self-care (01) ==
LOC: ER 16:54
DX: F25.0 Schizoaffective disorder, bipolar type (principal); I10 Essential (primary) hypertension; E11.9 Type 2 diabetes mellitus without complications; F17.210 Nicotine dependence, cigarettes, uncomplicated
CPT/HCPCS: 93005; 99285; 36415; 80307 ×4; 84443; 85025; 80053; 81001; 93010; J3490 ×2

== ENCOUNTER 2017-10-10 16:53 | Emergency (ER) | payer MEDICAID, OTHER ==
[2017-10-10] MEDS ORDERED: HALOPERIDOL LACTATE INJ 5 MG/1 ML VIAL IM ONE (17:47)
[2017-10-10] MEDS ORDERED: LORAZEPAM INJ 2 MG/1 ML VIAL IM ONE (17:47)
[2017-10-10] MEDS ORDERED: BENZTROPINE MESYLATE INJ 2 MG/2 ML AMPULE IM ONE (17:48)
--- NOTE | 2017-10-10 17:48 | ER Document Report ---
ED Psych Disorder / Suicide - General Chief Complaint: Psych Problem Stated Complaint: PSYCH EVAL Time Seen by Provider: 10/10/17 17:28 Notes: 42-year-old female with acute psychosis. Brought over from outpatient mental health follow-up treatment program. Apparently was speaking in multiple voices. 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 Reportedly has cocaine abuse. Has been extremely manic. Will not carry on a conversation with me. Patient keeps switching from one voice to the next. Starts laughing uncontrollably. TRAVEL OUTSIDE OF THE [place] IN LAST 30 DAYS: No - HPI Patient complains to provider of: Agitated, Bizarre behavior, Hallucinating. No : Suicidal ideation, Suicidal plan - Related Data Allergies/Adverse Reactions: No Known Allergies Allergy (Verified 06/19/17 19:01) Past Medical History - General Information source: Patient, Office, [facility] Records - Social History Smoking Status: Unknown if Ever Smoked Frequency of alcohol use: Unknown Drug Abuse: Cocaine Lives with: Other - Unknown Family History: None, Other - Unknown Patient has suicidal ideation: No Patient has homicidal ideation: No - Past Medical History Cardiac Medical History: Reports: Hx Hypercholesterolemia, Hx Hypertension Endocrine Medical History: Reports: Hx Diabetes Mellitus Type 2 Renal/ Medical History: Denies: Hx Peritoneal Dialysis Psychiatric Medical History: Reports: Hx Bipolar Disorder, Hx Schizophrenia Past Surgical History: Reports: Hx Section Review of Systems - Review of Systems -: Yes ROS unobtainable due to patient's medical condition - Patient uncooperative based on her mental health condition review of system Physical Exam - Vital signs Vitals: Temp Pulse Resp BP Pulse Ox 98.3 F 117 H 20 104/85 98 10/10/17 17:02 10/10/17 17:02 10/10/17 17:02 10/10/17 17:02 10/10/17 17:02 Interpretation: Tachycardic - General General appearance: Appears well, Alert - HEENT Head: Normocephalic, Atraumatic Eyes: Normal Pupils: PERRL - Respiratory Respiratory status: No respiratory distress Chest status: Nontender Breath sounds: Normal Chest palpation: Normal - Cardiovascular Rhythm: Tachycardia Heart sounds: Normal auscultation Murmur: No - Abdominal Inspection: Normal Distension: No distension Bowel sounds: Normal Tenderness: Nontender Organomegaly: No organomegaly - Back Back: Normal, Nontender - Extremities General upper extremity: Normal inspection, Nontender, Normal color, Normal ROM , Normal temperature General lower extremity: Normal inspection, Nontender, Normal color, Normal ROM , Normal temperature, Normal weight bearing. No: Serg's sign - Neurological Neuro grossly intact: Yes Cognition: Normal Orientation: AAOx4 [place] Coma Scale Eye Opening: Spontaneous [place] Coma Scale Verbal: Oriented [place] Coma Scale Motor: Obeys Commands Asha Coma Scale Total: 15 Speech: Normal Motor strength normal: LUE, RUE, LLE, RLE Sensory: Normal - Psychological Associated symptoms: Agitated, Flight of ideas, Tangential speech - Skin Skin Temperature: Warm Skin Moisture: Dry Skin Color: Normal Course - Re-evaluation Re-evalutation: 10/10/17 18:21 After visiting with patient and seen that she had been here multiple times for mental health issues I consulted with Dr. Hieu Villafana with psychology. States that she knows patient. At this time she recommends treating her with some Cogentin and Haldol. I will add some Ativan as well based on this history of cocaine abuse. Will place her on papers and have her evaluated in the morning. - Vital Signs Vital signs: Temp Pulse Resp BP Pulse Ox 98.3 F 117 H 20 104/85 98 10/10/17 17:02 10/10/17 17:02 10/10/17 17:02 10/10/17 17:02 10/10/17 17:02 - Laboratory Result Diagrams: 10/10/17 18:17 10/10/17 18:17 Laboratory results interpreted by me: 10/10/17 18:17 Urine Protein 30 H Urine Urobilinogen 2.0 H - EKG Interpretation by Dc EKG shows normal: Sinus rhythm, [place], Intervals, QRS Complexes, ST-T Waves Discharge - Discharge Clinical Impression: Acute exacerbation of psychosis Condition: Good
[2017-10-10 18:35] LABS: ABSOLUTE LYMPHOCYTES (AUTO) 1.8 10^3/uL (0.5-4.7); ABSOLUTE MONOCYTES (AUTO) 0.4 10^3/uL (0.1-1.4); ABSOLUTE NEUT (AUTO) 2.6 10^3/uL (1.7-8.2); BASOPHILS % (AUTO) 0.3 % (0-2); HEMATOCRIT 39.1 % (36.0-47.0); HEMOGLOBIN 13.5 g/dL (12.0-15.5); LYMPHOCYTES % (AUTO) 36.8 % (13-45); MEAN CORPUSCULAR HEMOGLOBIN 30.8 pg (27.0-33.4); MEAN CORPUSCULAR HGB CONC 34.5 g/dL (32.0-36.0); MEAN CORPUSCULAR VOLUME 89 fl (80-97); MONOCYTES % (AUTO) 7.4 % (3-13); PLATELET COUNT 281 10^3/uL (150-450); RED BLOOD COUNT 4.39 10^6/uL (3.72-5.28); SEGMENTED NEUTROPHILS % (AUTO) 54.5 % (42-78); TOTAL CELLS COUNTED % (AUTO) 100 %; WHITE BLOOD COUNT 4.8 10^3/uL (4.0-10.5)
[2017-10-10 18:41] LABS: APPEARANCE,URINE CLEAR; BILIRUBIN,URINE NEGATIVE (NEGATIVE); GLUCOSE, URINE NEGATIVE (NEGATIVE); KETONES,URINE NEGATIVE (NEGATIVE); LEUKOCYTE ESTERASE,URINE NEGATIVE (NEGATIVE); NITRITE,URINE NEGATIVE (NEGATIVE); PROTEIN,URINE 30 mg/dL (NEGATIVE); URINE SPECIFIC GRAVITY 1.026
[2017-10-10 18:45] LABS: COLOR,URINE YELLOW
[2017-10-10 18:54] LABS: ACETAMINOPHEN < 10 ug/mL (10-30); ALANINE AMINOTRANSFERASE 23 U/L (9-52); ALBUMIN 3.8 g/dL (3.5-5.0); ALCOHOL < 10 mg/dL (NONE DETECTED); ALKALINE PHOSPHATASE 106 U/L (38-126); ANION GAP 9 (5-19); ASPARTATE AMINO TRANSFERASE 19 U/L (14-36); BILIRUBIN,DIRECT 0.1 mg/dL (0.0-0.4); BILIRUBIN,TOTAL 0.4 mg/dL (0.2-1.3); BLOOD UREA NITROGEN 8 mg/dL (7-20); CALCIUM 9.3 mg/dL (8.4-10.2); CARBON DIOXIDE 25 mmol/L (22-30); CHLORIDE 108 mmol/L (98-107); GLUCOSE 88 mg/dL (75-110); SALICYLATE < 1.0 mg/dL (2.0-20.0); SODIUM 141.7 mmol/L (137-145); TOTAL PROTEIN 6.7 g/dL (6.3-8.2)
[2017-10-10 18:55] LABS: URINE AMPHETAMINES SCREEN NEGATIVE; URINE BARBITURATES SCREEN NEGATIVE; URINE BENZODIAZEPINES SCREEN NEGATIVE; URINE COCAINE SCREEN NEGATIVE; URINE MARIJUANA (THC) SCREEN NEGATIVE; URINE METHADONE SCREEN NEGATIVE; URINE PHENCYCLIDINE SCREEN NEGATIVE
[2017-10-10] MEDS ORDERED: ZIPRASIDONE MESYLATE INJ/PF 20 MG SDV IM ONE (20:51)
--- NOTE | 2017-10-11 06:43 | EKG REPORT ---
SEVERITY:- NORMAL ECG - SINUS RHYTHM : Confirmed by: Felipe Thompson MD 11-Oct-2017 06:42:48
--- NOTE | 2017-10-11 09:45 | ER Document Report ---
Doctor's Note Notes: 10/11/17 09:44 Patient was seen yesterday. Was given antipsychotic medications overnight. Patient still quite talkative. Seems a little more stable today. Will follow recommendations for mental health team after their final recommendations are given. Nothing further at this time. 10/11/17 11:23 Patient is wanting to go now. Mental health is seen and states that patient is stable for discharge. Follow-up is secure. Will DC at this time with Haldol and Cogentin. Prior to discharge will give a long-acting Haldol shot before DC. Discharge - Discharge Clinical Impression: Acute exacerbation of psychosis, Schizoaffective disorder, bipolar type Condition: Stable Disposition: HOME, SELF-CARE Instructions: Schizophrenia ([facility]) Additional Instructions: Hallucinations You seem to be having hallucinations. Hallucinations are seeing, hearing, or feeling things that don't exist. These symptoms commonly occur with drug abuse and schizophrenia. Drugs like PCP, LSD, MDMA, peyote, and "psychedelic mushrooms" can cause frightening hallucinations. Users of methamphetamine or crack cocaine often see and feel bugs crawling on their skin. Patients with schizophrenia may hear voices that no one else can hear. The delusions of schizophrenia often involve conspiracies or relationships that are not real. When symptoms are due to drug abuse, the mental state usually improves as the drug wears off. Someone you trust should be with you until you are better, to protect you and calm your fears. Tranquilizer medicine is helpful at controlling hallucinations, anxiety, and deluded thoughts. Get a proper diet and enough sleep. Most patients do very well when they get proper medical treatment and social support. You should return at once if your symptoms get worse, if you are having suicidal thoughts or thoughts about hurting others, or if you feel that you are in danger. Please follow up [facility] in 3-5 days for your continued mental health treatment. You have been given a Haldol Decanoate 100 ML shot that will last 3-4 weeks and prescribed Haldol 5mg twice daily and Cogentin 1mg daily for continued maintenance of the monthly shot given. Please take as prescribed. AT ANY TIME, IF YOUR SYMPTOMS CHANGE SIGNIFICANTLY OR WORSEN OR YOU DEVELOP NEW SYMPTOMS, RETURN TO THE EMERGENCY DEPARTMENT IMMEDIATELY FOR RE-EVALUATION. Prescriptions: Benztropine Mesylate 1 mg PO DAILY 7 Days #7 tablet Haloperidol [Haldol 5 mg Tablet] 5 mg PO BID 7 Days #14 tablet Referrals: [facility] [Outside] - Follow up in 3-5 days
--- NOTE | 2017-10-11 09:58 | PSYCHOLOGICAL NOTE ---
Psych Note - Psych Note Psych Note: Reason for consult: Manic; Hallucination Consent Permissions:none given Pt presents to the ED with [facility] staff member for a manic episode. Pt noted to be talking in 3rd person and having hallucinations. Patient disclosed that she does not have any thoughts of harming herself or others. She disclosed she had obtained outpatient mental health services with [facility]. She continued to disclose that she does have family local but does not talk to them. She confirms she meet with [facility] once after her last [facility] ED visit but refused ACT services; "I talked to them once but didn't follow with them...I don't need ACT." Danielle asked if she tested positive for HPV. Patient was alert and oriented to person, place, and time. Mood was euthymic with congruent affect. She denied SI/HI and these were not presenting problems. She did not appear to be responding to internal stimuli AEB answering questions appropriately and staying on topic (it is noted that when clinician started talking about discharge patient started to look up at ceiling and has since started talking to herself). Thought processes were linear and organized. Conversational speech was WNL for rate, tone and prosody. Intellectual abilities are estimated to be average. Insight, judgment and impulse control are fair AEB linear and organized thoughts. Behavioral Health Team contacted [facility] for updated medications. Patient has not picked up any medications since May 2017. She was also prescribed an Invega monthly shot; however, she never picked it up. Behavioral Health Team contact [facility] to coordinate continued care Medication recommendations per [facility]'s contracted psychiatrist, MD Jacquie are as follows: 1. Haldol Decanoate 100 ML now 2. Haldol 5mg twice daily 3. Cogentin 1 mg daily Impression/Plan: Patient is psychiatrically cleared. She does not meet [place] 122C IVC criteria. She denied SI/HI since her arrival to the ED. Though she came in with isabel and psychosis she did not present as such during psychiatric evaluation. She was able to stay on topic and answer questions appropriately when addressed. This patient is familiar to the [facility] ED and behavioral health team. She has been hospitalized inpatient 3 times in the last 9 months. She has not filled her medications since May. During her last [facility] ED visit she was set up with [facility] for ACT services; patient has refused services for ACT. Patient has obtained outpatient mental health services with [facility] , Behavior Health Team will be contacting them to coordinate continued care ( i.e. to let them know current treatment plan is not effective since patient is noncomplient with medications and has refused ACT services). Patient is noted to have chronic hallucinations; however, patient today demonstrated calm without behaviors indicating she was responding to internal stimuli until clinician started talking about discharge plan. Consulted with Dr. Villafana regarding the management and care of patient. ED Physician in agreement with recommendations and disposition.
[2017-10-11] MEDS ORDERED: HALOPERIDOL DECANOATE INJ 100 MG/1 ML VIAL IM ONE (11:19)
[2017-10-11 11:47] VITALS: BP 137/98
== END 2017-10-11 11:47 | disposition home or self-care (01) ==
LOC: ER 16:53
DX: F25.0 Schizoaffective disorder, bipolar type (principal); F14.10 Cocaine abuse, uncomplicated; I10 Essential (primary) hypertension; E11.9 Type 2 diabetes mellitus without complications
CPT/HCPCS: 93005; 99285; 96372; 36415; 80307 ×4; 85025; 81025; 80053; 81001; 93010; J0515; J1631; J1630; J2060; J3486

== ENCOUNTER 2017-10-24 17:54 | Emergency (ER) | payer MEDICAID, OTHER ==
--- NOTE | 2017-10-24 18:56 | ER Document Report ---
ED Psych Disorder / Suicide <RIZVIYVONNE - Last Filed: 10/25/17 10:16> <MK HART - Last Filed: 10/25/17 19:38> - General Mode of Arrival: Medic Information source: Patient, Law Enforcement, Emergency Med Personnel, [facility] Records, Outside Facility Records Cannot obtain history due to: Uncooperative TRAVEL OUTSIDE OF THE [place] IN LAST 30 DAYS: No - HPI Patient complains to provider of: Bizarre behavior, Hallucinating, Homicidal ideation, Suicidal ideation Onset: Other - Unknown Onset was: Cannot confirm Quality of pain: No pain Suicide Risk Factors: Bipolar, Hallucinations, Schizophrenia, Substance abuse, Other mental health dx., Other - Unable to care for herself Normal mood: No Associated symptoms: Auditory hallucinations, Uncooperative Similar symptoms previously: Yes Recently seen / treated by doctor: Yes - Anny Crum <TAE PICKARD - Last Filed: 10/26/17 12:27> - General Chief Complaint: Psych Problem Stated Complaint: IVC Time Seen by Provider: 10/24/17 18:22 Notes: 42-year-old female with a history of paranoid schizophrenia, bipolar disorder Well-known to staff with multiple emergency department visits presents in the custody of the [facility] department with an IVC. Patient is not cooperative with history. She will not take the covers off of her head. Patient's physician Anny Crum sent the patient over in [facility]'s custody because the patient has been experiencing auditory hallucinations, exhibiting bizarre behaviors, admitted to some suicidal thoughts and she was unable to contract her for safety per the IVC. Patient was sent for stabilization. (TAE PICKARD) - Related Data Allergies/Adverse Reactions: No Known Allergies Allergy (Verified 10/24/17 18:59) Past Medical History - General Information source: Patient Cannot obtain history due to: Uncooperative - Social History Smoking Status: Unknown if Ever Smoked Drug Abuse: Cocaine Lives with: Friend Family History: None, Other - Unknown - Past Medical History Cardiac Medical History: Reports: Hx Hypercholesterolemia, Hx Hypertension Endocrine Medical History: Reports: Hx Diabetes Mellitus Type 2 Renal/ Medical History: Denies: Hx Peritoneal Dialysis Psychiatric Medical History: Reports: Hx Bipolar Disorder, Hx Schizophrenia Past Surgical History: Reports: Hx Section <TAE PICKARD - Last Filed: 10/26/17 12:27> Review of Systems - Review of Systems -: Yes ROS unobtainable due to patient's medical condition <TAE PICKARD - Last Filed: 10/26/17 12:27> Physical Exam - Vital signs Interpretation: Normal - General General appearance: Appears well, Alert - Psychological Associated symptoms: No: Combative <TAE PICKARD - Last Filed: 10/26/17 12:27> - Vital signs Vitals: Temp Pulse Resp BP Pulse Ox 98.2 F 82 18 133/88 H 97 10/24/17 17:56 10/24/17 17:56 10/24/17 17:56 10/24/17 17:56 10/24/17 17:56 Course - Laboratory Result Diagrams: 10/24/17 18:44 10/24/17 18:44 <YVONNE RIZVI - Last Filed: 10/25/17 10:16> - Laboratory Result Diagrams: 10/24/17 18:44 10/24/17 18:44 <MK HART - Last Filed: 10/25/17 19:38> - Laboratory Result Diagrams: 10/24/17 18:44 10/24/17 18:44 <TAE PICKARD - Last Filed: 10/26/17 12:27> - Re-evaluation Re-evalutation: 10/26/17 12:26 Patient remained stable throughout her ED course. will be seen by psych in am ( TAE PICKARD) - Vital Signs Vital signs: Temp Pulse Resp BP Pulse Ox 97.9 F 80 18 120/78 100 10/25/17 10:39 10/25/17 10:39 10/25/17 10:39 10/25/17 10:39 10/25/17 10:39 - Laboratory Laboratory results interpreted by me: 10/24/17 10/24/17 18:44 18:44 RDW 14.6 H Salicylates < 1.0 L Acetaminophen < 10 L Discharge <YVONNE RIZVI - Last Filed: 10/25/17 10:16> <MK HART - Last Filed: 10/25/17 19:38> <TAE PICKARD - Last Filed: 10/26/17 12:27> - Discharge Clinical Impression: Schizoaffective disorder, bipolar type Condition: Stable Disposition: HOME, SELF-CARE Additional Instructions: Hallucinations You seem to be having hallucinations. Hallucinations are seeing, hearing, or feeling things that don't exist. These symptoms commonly occur with drug abuse and schizophrenia. Drugs like PCP, LSD, MDMA, peyote, and "psychedelic mushrooms" can cause frightening hallucinations. Users of methamphetamine or crack cocaine often see and feel bugs crawling on their skin. Patients with schizophrenia may hear voices that no one else can hear. The delusions of schizophrenia often involve conspiracies or relationships that are not real. When symptoms are due to drug abuse, the mental state usually improves as the drug wears off. Someone you trust should be with you until you are better, to protect you and calm your fears. Tranquilizer medicine is helpful at controlling hallucinations, anxiety, and deluded thoughts. Get a proper diet and enough sleep. Most patients do very well when they get proper medical treatment and social support. You should return at once if your symptoms get worse, if you are having suicidal thoughts or thoughts about hurting others, or if you feel that you are in danger. Please follow-up with your outpatient mental health provider, [facility], upon discharge. They report they will be prescribing you your continued medications. AT ANY TIME, IF YOUR SYMPTOMS CHANGE SIGNIFICANTLY OR WORSEN OR YOU DEVELOP NEW SYMPTOMS, RETURN TO THE EMERGENCY DEPARTMENT IMMEDIATELY FOR RE-EVALUATION. Prescriptions: Asenapine Maleate [Saphris] 10 mg SL BID #[id number] tab.subl Referrals: [facility] [Outside] - 10/25/17
[2017-10-24 19:00] LABS: ABSOLUTE EOSINOPHILS # (AUTO) 0.1 10^3/uL (0.0-0.6); ABSOLUTE LYMPHOCYTES (AUTO) 1.7 10^3/uL (0.5-4.7); ABSOLUTE MONOCYTES (AUTO) 0.4 10^3/uL (0.1-1.4); ABSOLUTE NEUT (AUTO) 3.6 10^3/uL (1.7-8.2); BASOPHILS % (AUTO) 0.2 % (0-2); HEMATOCRIT 39.5 % (36.0-47.0); HEMOGLOBIN 13.6 g/dL (12.0-15.5); LYMPHOCYTES % (AUTO) 29.9 % (13-45); MEAN CORPUSCULAR HEMOGLOBIN 31.2 pg (27.0-33.4); MEAN CORPUSCULAR HGB CONC 34.4 g/dL (32.0-36.0); MEAN CORPUSCULAR VOLUME 91 fl (80-97); MONOCYTES % (AUTO) 6.6 % (3-13); PLATELET COUNT 317 10^3/uL (150-450); RED BLOOD COUNT 4.36 10^6/uL (3.72-5.28); RED CELL DISTRIBUTION WIDTH 14.6 % (11.5-14.0); SEGMENTED NEUTROPHILS % (AUTO) 61.3 % (42-78); TOTAL CELLS COUNTED % (AUTO) 100 %; WHITE BLOOD COUNT 5.8 10^3/uL (4.0-10.5)
[2017-10-24 19:05] LABS: ALANINE AMINOTRANSFERASE 27 U/L (9-52); ALBUMIN 3.9 g/dL (3.5-5.0); ALKALINE PHOSPHATASE 122 U/L (38-126); ANION GAP 8 (5-19); ASPARTATE AMINO TRANSFERASE 14 U/L (14-36); BILIRUBIN,DIRECT 0.3 mg/dL (0.0-0.4); BILIRUBIN,TOTAL 0.3 mg/dL (0.2-1.3); BLOOD UREA NITROGEN 9 mg/dL (7-20); CALCIUM 9.7 mg/dL (8.4-10.2); CARBON DIOXIDE 26 mmol/L (22-30); CHLORIDE 106 mmol/L (98-107); GLUCOSE 107 mg/dL (75-110); POTASSIUM 4.3 mmol/L (3.6-5.0); SODIUM 139.9 mmol/L (137-145); TOTAL PROTEIN 7.4 g/dL (6.3-8.2)
[2017-10-25 01:02] LABS: ACETAMINOPHEN < 10 ug/mL (10-30); SALICYLATE < 1.0 mg/dL (2.0-20.0)
--- NOTE | 2017-10-25 08:06 | EKG REPORT ---
SEVERITY:- NORMAL ECG - SINUS RHYTHM : Confirmed by: Felipe Thompson MD 25-Oct-2017 08:06:05
--- NOTE | 2017-10-25 09:53 | ER Document Report ---
Doctor's Note Notes: 10/25/17 09:52 Rounds: Chart reviewed and patient interviewed. Patient says she is feeling better than when she was admitted yesterday. Patient has a history of schizophrenia and bipolar disorder. She was acting rather bizarre and having hallucinations and agitation when she was admitted yesterday. Vital signs are all normal. Labs are essentially normal. Patient appears to be medically stable for transfer or discharge. I believe patient is going to be discharged today. Patient wished to asked me a couple of medical questions. She concluded these questions by telling me that she needed something for her back pain. She said that "you have to give me Percocets" I told her I was not going to give her Percocet or any other medication for her back pain. She was not here to be evaluated and treated for back pain and she should see her chronic pain management provider for her back condition. Roula López MD
--- NOTE | 2017-10-25 10:17 | PSYCHOLOGICAL NOTE ---
Psych Note - Psych Note Psych Note: Reason for consult: IVC Consent Permissions:none given 42-year-old female with a history of paranoid schizophrenia, bipolar disorder Well-known to staff with multiple emergency department visits presents in the custody of the [facility] with an IVC. Patient is not cooperative with history. She will not take the covers off of her head. Patient's physician Anny Crum sent the patient over in [facility] custody because the patient has been experiencing auditory hallucinations, exhibiting bizarre behaviors, admitted to some suicidal thoughts and she was unable to contract her for safety per the IVC. Patient denies thoughts of wanting to hurt herself or others. Patient disclosed some delusions with hallucinations; "Wyatt is not bothering me anymore , he moved to [place]." She reports she remembers getting the Haldol Denconate during her last [facility] ED visit and confirms she has been taking her medications since; "I was wondering, are you going to do my medicines...they gave me rispirdone..that made me feel good, I would like that one." Patient was noted to ask the attending medical doctor about her blood sugar (if it was high) because she use to take metformin. Patient also disclosed back pain and told the doctor he "had to prescribe" her percocet. Patient is also asking for medication for her cramping to Behavioral Health Team. Clinician spoke with Alen of [facility]; patient came into facility manic with bizarre behaviours. Patient was stripping, humming the huber, screaming and taking to people not there. They gave her saphris black linares and patient calmed however started to make comments that she was not Kayla, she was Satan and hoped the injection medication would kill Kayla. Between the initial behavior and concerns of continued psychosis they IVCed the patient for her safety. This is the second time they have seen the patient since starting in there facility. Patient can be seen today as a walk in but they close at noon. Her prescription by her outpatient provider will be Saphris 10mg BID and continued monthly shot. If she can arrive before noon they will write the prescription and give her the shot. Patient was alert and oriented to person, place, and time. Mood was euthymic with congruent affect. She denied suicidal and homicidal ideation. She did not appear to be responding to internal stimuli as evidenced by answering questions appropriately and staying on topic. Thought processes were linear and organized. Conversational speech was within normal for rate, tone and prosody. attention and concentration are good. Intellectual abilities are estimated to be average range. Insight, judgment and impulse control are currently good as evidenced by patient taking her medications and going to her mental health appointments. Medication recommendations per [facility]'s contracted psychiatrist, MD Jacquie are as follows: none at this time. Diagnosis 295.70 (F25.0) Schizoaffective Disorder, Bipolar Type by history Impression/Plan: Patient is recommended for rescind of IVC and is considered psychiatrically cleared. She does not meet [place] IVC criteria. She denied SI/HI since her arrival to the ED. This patient is familiar to the [facility] ED staff and this clinician. She has been hospitalized inpatient 3 times in the last 10 months. The current presentation of the patient is the best the patient has ever presented. She is not manic, is calm, and is able to discuss medications (i.e. patient remembers medications she received during last visit, confirms continued taking her medications and discusses possible new medication options). Patient was noncompliant with her medication and mental health services previous to her previous [facility] ED visit (10/10/2017) at which received the Haladol Decanonate shot; now she is taking her medication and going to her appointments. Patient is noted to have chronic delusions; however, patient today demonstrated calm without behavioral outburst that she has demonstrated in the past (such as screaming, throwing her wig around, and actively having multiple conversations with her hallucinations). Consulted with Dr. Villafana regarding the management and care of patient. ED Physician in agreement with recommendations and disposition.
[2017-10-25 10:40] VITALS: BP 120/78
== END 2017-10-25 10:40 | disposition home or self-care (01) ==
LOC: ER 17:54
DX: F25.0 Schizoaffective disorder, bipolar type (principal); M54.9 Dorsalgia, unspecified; I10 Essential (primary) hypertension; E11.9 Type 2 diabetes mellitus without complications; F14.10 Cocaine abuse, uncomplicated
CPT/HCPCS: 36415; 80053; 80307; 85025; 93005; 93010; 99285

== ENCOUNTER 2017-11-07 23:33 | Emergency (ER) | payer MEDICAID ==
[2017-11-07] MEDS ORDERED: HALOPERIDOL LACTATE INJ 5 MG/1 ML VIAL IM ONE (23:46)
--- NOTE | 2017-11-07 23:50 | ER Document Report ---
ED General - General Chief Complaint: Psych Problem Stated Complaint: PSYCH EVAL Time Seen by Provider: 11/07/17 23:39 Notes: Patient is a pleasant 42-year-old female with a history of schizophrenia who is out of her medications who presents with having hallucinations. Patient saying that there is a demon inside of her and will sometimes talk and say things that are very odd and does not make sense. She was then turned to me and say that that is a demon talking and not her. She will randomly cry and then go back to looking normal. She does not know the dosages of her medications. She is on Haldol as well as Saphris and one other medication. No other complaints at this time. TRAVEL OUTSIDE OF THE U.S. IN LAST 30 DAYS: No - Related Data Allergies/Adverse Reactions: No Known Allergies Allergy (Verified 10/24/17 18:59) Past Medical History - Social History Smoking Status: Unknown if Ever Smoked Frequency of alcohol use: None Drug Abuse: None Family History: None, Other - Unknown - Past Medical History Cardiac Medical History: Reports: Hx Hypercholesterolemia, Hx Hypertension Endocrine Medical History: Reports: Hx Diabetes Mellitus Type 2 Renal/ Medical History: Denies: Hx Peritoneal Dialysis Psychiatric Medical History: Reports: Hx Bipolar Disorder, Hx Schizophrenia Past Surgical History: Reports: Hx Section Review of Systems - Review of Systems -: Yes ROS unobtainable due to patient's medical condition - patient having active hallucinations Physical Exam - Vital signs Vitals: Temp Pulse Resp BP Pulse Ox 98.2 F 91 18 132/87 H 99 11/08/17 00:00 11/08/17 00:00 11/08/17 00:00 11/08/17 00:00 11/08/17 00:00 - Notes Notes: General Appearance: Well nourished, alert, cooperative, no acute distress, no obvious discomfort. Vitals: reviewed, See vital signs table. Head: no swelling or tenderness to the head Eyes: PERRL, EOMI, Conjuctiva clear Lungs: No wheezing, No rales, No rhonci, No accessory muscle use, good air exchange bilaterally. Heart: Normal rate, Regular rythm, No murmur, no rub Extremities: strength 5/5 in all extremities, good pulses in all extremities, Skin: warm, dry, appropriate color, no rash Neuro: speech clear, oriented x 3, normal affect, responds appropriately to questions. Psychiatric: Patient will occasionally answer my question but most times will answer something does not make sense. She will occasionally throw herself forward and then starts moving herself back and forth in a somewhat violent manner as if she is possessed. Course - Re-evaluation Re-evalutation: 11/08/17 06:17 Patient is medically stable for psychiatric evaluation and placement. - Vital Signs Vital signs: Temp Pulse Resp BP Pulse Ox 98.2 F 91 18 132/87 H 99 11/08/17 00:00 11/08/17 00:00 11/08/17 00:00 11/08/17 00:00 11/08/17 00:00 - Laboratory Result Diagrams: 11/08/17 00:05 11/08/17 00:05 Laboratory results interpreted by me: 11/08/17 11/08/17 00:05 00:05 RDW 14.6 H Salicylates < 1.0 L Acetaminophen < 10 L - EKG Interpretation by Me Additional EKG results interpreted by me: 11/08/17 00:25 EKG is reviewed and interpreted by me. EKG shows normal sinus rhythm with a rate of [address] segment elevation or depression. No ischemic T-wave inversions. [place] interval, QRS duration, QTc intervals are within normal range. No old EKG available for comparison. Discharge - Discharge Clinical Impression: Schizophrenia Qualifiers: Schizophrenia type: unspecified Qualified Code(s): F20.9 - Schizophrenia, unspecified Condition: Stable Disposition: PSYCH HOSP/UNIT
[2017-11-08 00:16] LABS: ABSOLUTE BASOPHILS # (AUTO) 0.1 10^3/uL (0.0-0.2); ABSOLUTE EOSINOPHILS # (AUTO) 0.1 10^3/uL (0.0-0.6); ABSOLUTE LYMPHOCYTES (AUTO) 2.3 10^3/uL (0.5-4.7); ABSOLUTE MONOCYTES (AUTO) 0.5 10^3/uL (0.1-1.4); ABSOLUTE NEUT (AUTO) 4.6 10^3/uL (1.7-8.2); BASOPHILS % (AUTO) 1.5 % (0-2); EOSINOPHILS % (AUTO) 0.9 % (0-6); HEMATOCRIT 39.5 % (36.0-47.0); HEMOGLOBIN 13.5 g/dL (12.0-15.5); MEAN CORPUSCULAR HGB CONC 34.2 g/dL (32.0-36.0); MEAN CORPUSCULAR VOLUME 91 fl (80-97); MONOCYTES % (AUTO) 6.4 % (3-13); PLATELET COUNT 303 10^3/uL (150-450); RED BLOOD COUNT 4.36 10^6/uL (3.72-5.28); RED CELL DISTRIBUTION WIDTH 14.6 % (11.5-14.0); SEGMENTED NEUTROPHILS % (AUTO) 61.2 % (42-78); TOTAL CELLS COUNTED % (AUTO) 100 %; WHITE BLOOD COUNT 7.5 10^3/uL (4.0-10.5)
[2017-11-08 00:28] LABS: ALANINE AMINOTRANSFERASE 29 U/L (9-52); ALBUMIN 3.9 g/dL (3.5-5.0); ALKALINE PHOSPHATASE 124 U/L (38-126); ANION GAP 7 (5-19); ASPARTATE AMINO TRANSFERASE 17 U/L (14-36); BILIRUBIN,DIRECT 0.1 mg/dL (0.0-0.4); BILIRUBIN,TOTAL 0.3 mg/dL (0.2-1.3); BLOOD UREA NITROGEN 12 mg/dL (7-20); CARBON DIOXIDE 26 mmol/L (22-30); CHLORIDE 106 mmol/L (98-107); GLUCOSE 102 mg/dL (75-110); POTASSIUM 3.9 mmol/L (3.6-5.0); SODIUM 139.3 mmol/L (137-145); TOTAL PROTEIN 7.1 g/dL (6.3-8.2)
[2017-11-08 00:29] LABS: ACETAMINOPHEN < 10 ug/mL (10-30); ALCOHOL < 10 mg/dL (NONE DETECTED); SALICYLATE < 1.0 mg/dL (2.0-20.0)
[2017-11-08 00:53] LABS: APPEARANCE,URINE CLEAR; BILIRUBIN,URINE NEGATIVE (NEGATIVE); COLOR,URINE YELLOW; GLUCOSE, URINE NEGATIVE (NEGATIVE)
[2017-11-08 00:54] LABS: KETONES,URINE NEGATIVE (NEGATIVE); LEUKOCYTE ESTERASE,URINE NEGATIVE (NEGATIVE); NITRITE,URINE NEGATIVE (NEGATIVE); PROTEIN,URINE NEGATIVE (NEGATIVE); URINE SPECIFIC GRAVITY 1.006; UROBILINOGEN,URINE NEGATIVE mg/dL (<2.0)
[2017-11-08 01:23] LABS: URINE AMPHETAMINES SCREEN NEGATIVE; URINE BARBITURATES SCREEN NEGATIVE; URINE BENZODIAZEPINES SCREEN NEGATIVE; URINE COCAINE SCREEN NEGATIVE; URINE MARIJUANA (THC) SCREEN NEGATIVE; URINE METHADONE SCREEN NEGATIVE; URINE PHENCYCLIDINE SCREEN NEGATIVE
[2017-11-08] MEDS ORDERED: NICOTINE 14 MG/24 HR PATCH.TD24 TD ONE (07:29)
--- NOTE | 2017-11-08 07:38 | EKG REPORT ---
SEVERITY:- BORDERLINE ECG - SINUS RHYTHM NONSPECIFIC ST-T CHANGES- INFERIOR LEADS ESSENTIALLY UNCHANGED. : Confirmed by: Felipe Thompson MD 08-Nov-2017 07:37:58
[2017-11-08] MEDS ORDERED: HALOPERIDOL DECANOATE INJ 100 MG/1 ML VIAL IM ONE (10:06)
[2017-11-08] MEDS ORDERED: BENZTROPINE MESYLATE INJ 2 MG/2 ML AMPULE IM ONE (10:07)
--- NOTE | 2017-11-08 10:37 | ER Document Report ---
Doctor's Note Notes: 11/08/17 10:34 Rounds: Chart reviewed and patient interviewed. Vital signs are all normal. Lab studies were all essentially normal. Patient appears to be medically stable for transfer or discharge. Patient is still having flights of ideas, but mental health has assessed the patient and feels we can give her a shot of Haldol Deconate 100 mg IM and she can be discharged. Roula López MD
[2017-11-08 11:17] VITALS: BP 118/78
== END 2017-11-08 11:35 | disposition home or self-care (01) ==
LOC: ER 23:33
DX: F25.0 Schizoaffective disorder, bipolar type (principal); T43.4X6A Underdosing of butyrophenone and thiothixene neuroleptics, initial encounter; T43.596A Underdosing of other antipsychotics and neuroleptics, initial encounter; Z91.128 Patient's intentional underdosing of medication regimen for other reason; I10 Essential (primary) hypertension; E11.9 Type 2 diabetes mellitus without complications
CPT/HCPCS: 93005; 99284; 96372; 36415; 80307 ×4; 85025; 80053; 81001; 93010; J0515; J1631; J1630; J3490

== ENCOUNTER 2018-01-28 00:46 | Emergency (ER) | payer MEDICAID, OTHER ==
[2018-01-28 02:03] LABS: ABSOLUTE BASOPHILS # (AUTO) 0.1 10^3/uL (0.0-0.2); ABSOLUTE EOSINOPHILS # (AUTO) 0.1 10^3/uL (0.0-0.6); ABSOLUTE LYMPHOCYTES (AUTO) 1.8 10^3/uL (0.5-4.7); ABSOLUTE MONOCYTES (AUTO) 0.4 10^3/uL (0.1-1.4); ABSOLUTE NEUT (AUTO) 2.3 10^3/uL (1.7-8.2); BASOPHILS % (AUTO) 1.4 % (0-2); EOSINOPHILS % (AUTO) 2.2 % (0-6); HEMOGLOBIN 13.2 g/dL (12.0-15.5); LYMPHOCYTES % (AUTO) 38.5 % (13-45); MEAN CORPUSCULAR HEMOGLOBIN 30.9 pg (27.0-33.4); MEAN CORPUSCULAR HGB CONC 33.8 g/dL (32.0-36.0); MEAN CORPUSCULAR VOLUME 91 fl (80-97); MONOCYTES % (AUTO) 9.1 % (3-13); PLATELET COUNT 267 10^3/uL (150-450); RED BLOOD COUNT 4.27 10^6/uL (3.72-5.28); RED CELL DISTRIBUTION WIDTH 14.4 % (11.5-14.0); SEGMENTED NEUTROPHILS % (AUTO) 48.8 % (42-78); TOTAL CELLS COUNTED % (AUTO) 100 %; WHITE BLOOD COUNT 4.7 10^3/uL (4.0-10.5)
--- NOTE | 2018-01-28 02:13 | ER Document Report ---
ED General - General Chief Complaint: Psych Problem Stated Complaint: PSYCH EVAL Time Seen by Provider: 01/28/18 01:34 Mode of Arrival: Medic Information source: Patient Notes: 42-year-old female presents stating that she does not feel well has suicidal ideations and wishes to be treated and then discharged. Patient notes that she has had multiple similar episodes in the past that she is from [place]. Refuses to explain why she is here or how she got here. She notes she is not on medications and does not see anyone for this. Patient states she has no plan TRAVEL OUTSIDE OF THE U.S. IN LAST 30 DAYS: No - HPI Onset: Just prior to arrival Onset/Duration: Sudden Quality of pain: No pain Severity: Mild Pain Level: Denies Associated symptoms: Other Exacerbated by: Denies Relieved by: Denies Similar symptoms previously: Yes Recently seen / treated by doctor: No - Related Data Allergies/Adverse Reactions: No Known Allergies Allergy (Verified 10/24/17 18:59) Past Medical History - Social History Smoking Status: Never Smoker Cigarette use (# per day): No Chew tobacco use (# tins/day): No Smoking Education Provided: No Family History: None, Other - Unknown - Past Medical History Cardiac Medical History: Reports: Hx Hypercholesterolemia, Hx Hypertension Endocrine Medical History: Reports: Hx Diabetes Mellitus Type 2 Renal/ Medical History: Denies: Hx Peritoneal Dialysis Psychiatric Medical History: Reports: Hx Bipolar Disorder, Hx Schizophrenia Past Surgical History: Reports: Hx Section Review of Systems - Review of Systems Notes: REVIEW OF SYSTEMS: CONSTITUTIONAL : Denies fever, chills, or sweats. Denies recent illness. EENT: Denies eye, ear, throat, or mouth pain or symptoms. Denies nasal or sinus congestion or discharge. Denies throat, tongue, or mouth swelling or difficulty swallowing. CARDIOVASCULAR: Denies chest pain. Denies palpitations or racing or irregular heart beat. Denies ankle edema. RESPIRATORY: Denies cough, cold, or chest congestion. Denies shortness of breath, difficulty breathing, or wheezing. GASTROINTESTINAL: Denies abdominal pain or distention. Denies nausea, vomiting , or diarrhea. Denies blood in vomitus, stools, or per rectum. Denies black, tarry stools. Denies constipation. GENITOURINARY: Denies difficulty urinating, painful urination, burning, frequency, blood in urine, or discharge. FEMALE GENITOURINARY: Denies vaginal bleeding, heavy or abnormal periods, irregular periods. Denies vaginal discharge or odor. MUSCULOSKELETAL: Denies back or neck pain or stiffness. Denies joint pain or swelling. SKIN: Denies rash, lesions or sores. HEMATOLOGIC : Denies easy bruising or bleeding. LYMPHATIC: Denies swollen, enlarged glands. NEUROLOGICAL: Denies confusion or altered mental status. Denies passing out or loss of consciousness. Denies dizziness or lightheadedness. Denies headache. Denies weakness or paralysis or loss of use of either side. Denies problems with gait or speech. Denies sensory loss, numbness, or tingling. Denies seizures. PSYCHIATRIC: Admits to suicidal ideation ALL OTHER SYSTEMS REVIEWED AND NEGATIVE. PHYSICAL EXAMINATION: GENERAL: Well-appearing, well-nourished and in no acute distress. HEAD: Atraumatic, normocephalic. EYES: Pupils equal round and reactive to light, extraocular movements intact, conjunctiva are normal. ENT: Nares patent, oropharynx clear without exudates. Moist mucous membranes. NECK: Normal range of motion, supple without lymphadenopathy LUNGS: Breath sounds clear to auscultation bilaterally and equal. No wheezes rales or rhonchi. HEART: Regular rate and rhythm without murmurs ABDOMEN: Soft, nontender, nondistended abdomen. No guarding, no rebound. No masses appreciated. Female : deferred Musculoskeletal: Normal range of motion, no pitting or edema. No cyanosis. NEUROLOGICAL: Cranial nerves grossly intact. Normal speech, normal gait. Normal sensory, motor exams PSYCH: Normal mood, normal affect. SKIN: Warm, Dry, normal turgor, no rashes or lesions noted. Dictation was performed using [employer] recognition software Physical Exam - Vital signs Vitals: Temp Pulse Resp BP Pulse Ox 98.7 F 102 H 20 133/92 H 98 01/28/18 00:54 01/28/18 00:54 01/28/18 00:54 01/28/18 00:54 01/28/18 00:54 Course - Re-evaluation Re-evalutation: 01/28/18 02:11 Patient refuses to answer questions, states she just wants treatment for suicidal ideations and then she can be discharged. She states she is not on any medications, she is not forthcoming of any answers my questions I will have her watched overnight to mental health can evaluate her as I do not know why she is here how she got here or what medication she is on - Vital Signs Vital signs: Temp Pulse Resp BP Pulse Ox 98.7 F 102 H 20 133/92 H 98 01/28/18 00:54 01/28/18 00:54 01/28/18 00:54 01/28/18 00:54 01/28/18 00:54 - Laboratory Result Diagrams: 01/28/18 01:50 01/28/18 01:50 Laboratory results interpreted by me: 01/28/18 01:50 RDW 14.4 H Discharge - Discharge Clinical Impression: Suicidal ideations Condition: Stable Disposition: PSYCH HOSP/UNIT
[2018-01-28 02:20] LABS: ACETAMINOPHEN < 10 ug/mL (10-30); ALANINE AMINOTRANSFERASE 22 U/L (9-52); ALBUMIN 3.8 g/dL (3.5-5.0); ALCOHOL < 10 mg/dL (NONE DETECTED); ALKALINE PHOSPHATASE 101 U/L (38-126); ANION GAP 10 (5-19); ASPARTATE AMINO TRANSFERASE 13 U/L (14-36); BILIRUBIN,DIRECT 0.3 mg/dL (0.0-0.4); BILIRUBIN,TOTAL 0.6 mg/dL (0.2-1.3); BLOOD UREA NITROGEN 11 mg/dL (7-20); CALCIUM 9.6 mg/dL (8.4-10.2); CARBON DIOXIDE 23 mmol/L (22-30); CHLORIDE 109 mmol/L (98-107); GLUCOSE 95 mg/dL (75-110); POTASSIUM 4.5 mmol/L (3.6-5.0); SALICYLATE < 1.0 mg/dL (2.0-20.0); SODIUM 141.8 mmol/L (137-145); TOTAL PROTEIN 6.8 g/dL (6.3-8.2)
[2018-01-28 04:22] LABS: APPEARANCE,URINE CLEAR; BILIRUBIN,URINE NEGATIVE (NEGATIVE); COLOR,URINE YELLOW; GLUCOSE, URINE NEGATIVE (NEGATIVE); KETONES,URINE NEGATIVE (NEGATIVE); LEUKOCYTE ESTERASE,URINE NEGATIVE (NEGATIVE); NITRITE,URINE NEGATIVE (NEGATIVE); PROTEIN,URINE NEGATIVE (NEGATIVE); URINE SPECIFIC GRAVITY 1.014
[2018-01-28 04:42] LABS: URINE AMPHETAMINES SCREEN NEGATIVE; URINE BARBITURATES SCREEN NEGATIVE; URINE BENZODIAZEPINES SCREEN NEGATIVE; URINE COCAINE SCREEN NEGATIVE; URINE MARIJUANA (THC) SCREEN NEGATIVE; URINE METHADONE SCREEN NEGATIVE; URINE PHENCYCLIDINE SCREEN NEGATIVE
--- NOTE | 2018-01-28 08:39 | EKG REPORT ---
SEVERITY:- NORMAL ECG - SINUS RHYTHM : Confirmed by: Gustavo Koch 28-Jan-2018 08:38:46
[2018-01-28] MEDS ORDERED: NICOTINE 14 MG/24 HR PATCH.TD24 TD ONE (09:50)
--- NOTE | 2018-01-28 09:50 | ER Document Report ---
Doctor's Note Notes: This is a 42-year-old female with a history of psychosis in the past that presented with thoughts of suicide. Patient has presented like this in the past. Patient's labs and vital signs have been stable. Patient is currently in no distress. Waiting on psychiatric evaluation. 01/28/18 09:49 01/28/18 10:14 01/28/18 12:24 Patient has been evaluated by psychiatry and cleared for discharge. She was given a Haldol Decanoate shot. Plan is for outpatient follow-up.
[2018-01-28] MEDS ORDERED: HALOPERIDOL DECANOATE INJ 100 MG/1 ML VIAL IM ONE (11:27)
[2018-01-28] MEDS ORDERED: BENZTROPINE MESYLATE 1 MG TABLET PO SCH (11:30)
[2018-01-28] MEDS ORDERED: BENZTROPINE MESYLATE 1 MG TABLET PO ONE (12:15)
[2018-01-28 12:33] VITALS: BP 120/70
[2018-01-29] MEDS ORDERED: BENZTROPINE MESYLATE 1 MG TABLET PO SCH (10:00)
--- NOTE | 2018-01-29 10:53 | PSYCHOLOGICAL NOTE ---
Psych Note - Psych Note Psych Note: Reason for consult: suicidal ideation 42-year-old female presents stating that she does not feel well has suicidal ideations and wishes to be treated and then discharged. Patient notes that she has had multiple similar episodes in the past that she is from [place]. Refuses to explain why she is here or how she got here. She notes she is not on medications and does not see anyone for this. Patient states she has no plan Patient disclosed that she has not taken her medication and has not gone to [facility]. She reports that she was not able to fill her prescription because her insurance. Patient discloses passive suicidal ideation i.e. no plans means or intent. Patient states "I just need meds." Patient again denied any plan for her suicidal ideation. Patient is alert and orientated to person, place, time and circumstance. Mood is euthymic with congruent affect. Clinician notes patient is not demonstrating any behavior indicating manic or psychosis (patient has been seen on multiple occasions in the past for these events). Patient endorses passive suicidal ideation i.e. no plans means or intent. Patient denies homicidal ideation. Delusions are absent and behaviors congruent with intact reality based presentation i.e. organized and linear thought process. Eye contact was fair. Intellectual abilities appear to be within the average range. Attention and concentration are fair. Insight, judgment, impulse control are fair. Medication recommendations per [facility]'s contracted psychiatrist Dr. Jacquie CALLE are as follows 1. Haldol decanoate 100 mg once 2. Cogentin 1 mg once Diagnosis 295.70 (F25.0) Schizoaffective Disorder, Bipolar Type by history Impression\\plan: Patient is cleared from acute psychiatric services. This patient is well known to this clinician and department. Patient has been off her medication for approximately 3 months. Patient has a history of frequent noncompliance with her medications. Patient does not meet IVC criteria per [place] 122C. Patient endorses passive suicidal ideation and is not actively manic or in a psychosis. Medication recommendations have been provided. Patient is recommended to follow-up with her outpatient mental health provider. Dr. Villafana was consulted and the care and management this patient; attending physician is agreement with recommendations and disposition.
== END 2018-01-28 12:40 | disposition home or self-care (01) ==
LOC: ER 00:46
DX: R45.851 Suicidal ideations (principal); F25.0 Schizoaffective disorder, bipolar type; E78.00 Pure hypercholesterolemia, unspecified; I10 Essential (primary) hypertension; E11.9 Type 2 diabetes mellitus without complications
CPT/HCPCS: 93005; 99285; 96372; 36415; 80307 ×4; 84703; 85025; 80053; 81001; 93010; J3490 ×2; J1631

== ENCOUNTER 2018-03-11 10:11 | Emergency (ER) | payer MEDICAID, OTHER ==
--- NOTE | 2018-03-11 10:34 | ER Document Report ---
ED Psych Disorder / Suicide - General Chief Complaint: Suicidal Ideation Stated Complaint: PSYCH EVAL Time Seen by Provider: 03/11/18 10:31 Mode of Arrival: Ambulatory Information source: Patient Notes: 42 yo female "Kayla is my , God struck me down" "I wonder when I go back into action" "She wants to know if she can be comiitted." Here with Juan Pablo from mobile crisis who went to her house- [employer] called him, that Kayla needed assistance due to internal struggle between God and the Devil, she told him that "the devil is doing his work through me.". She is agitated and now looking me in the eyes saying this is "perfectly true". The patient has schizoaffective disorder and was given Haldol decoaenate 100mg injection January 28 at [facility]. She has a history of noncompliance with medications by mouth TRAVEL OUTSIDE OF THE U.S. IN LAST 30 DAYS: No - Related Data Allergies/Adverse Reactions: No Known Allergies Allergy (Verified 03/11/18 10:12) Past Medical History - General Information source: Patient - Social History Smoking Status: Current Every Day Smoker Frequency of alcohol use: None Drug Abuse: None Lives with: Family Family History: None, Other - Unknown - Past Medical History Cardiac Medical History: Reports: Hx Hypercholesterolemia, Hx Hypertension Endocrine Medical History: Reports: Hx Diabetes Mellitus Type 2 Renal/ Medical History: Denies: Hx Peritoneal Dialysis Psychiatric Medical History: Reports: Hx Bipolar Disorder, Hx Schizophrenia Past Surgical History: Reports: Hx Section Review of Systems - Review of Systems Constitutional: No symptoms reported EENT: No symptoms reported Cardiovascular: No symptoms reported Respiratory: No symptoms reported Gastrointestinal: No symptoms reported Genitourinary: No symptoms reported Female Genitourinary: No symptoms reported Musculoskeletal: No symptoms reported Skin: No symptoms reported Hematologic/Lymphatic: No symptoms reported Neurological/Psychological: See HPI Physical Exam - Vital signs Vitals: Temp Pulse Resp BP Pulse Ox 98.7 F 93 20 119/75 99 03/11/18 10:20 03/11/18 10:20 03/11/18 10:20 03/11/18 10:20 03/11/18 10:20 Interpretation: Normal - General General appearance: Appears well, Alert - HEENT Head: Normocephalic, Atraumatic Eyes: Normal Pupils: PERRL - Respiratory Respiratory status: No respiratory distress Chest status: Nontender Breath sounds: Normal Chest palpation: Normal - Cardiovascular Rhythm: Regular Heart sounds: Normal auscultation Murmur: No - Abdominal Inspection: Normal Distension: No distension Bowel sounds: Normal Tenderness: Nontender Organomegaly: No organomegaly - Back Back: Normal, Nontender. No: CVA tenderness - Extremities General upper extremity: Normal inspection, Nontender, Normal color, Normal ROM , Normal temperature General lower extremity: Normal inspection, Nontender, Normal color, Normal ROM , Normal temperature, Normal weight bearing. No: Serg's sign - Neurological Neuro grossly intact: Yes Cognition: Normal Orientation: AAOx4 Asha Coma Scale Eye Opening: Spontaneous [place] Coma Scale Verbal: Oriented Asha Coma Scale Motor: Obeys Commands [place] Coma Scale Total: 15 Speech: Normal Motor strength normal: LUE, RUE, LLE, RLE Sensory: Normal - Psychological Associated symptoms: Flight of ideas - at times, Restlessness - Skin Skin Temperature: Warm Skin Moisture: Dry Skin Color: Normal Course - Re-evaluation Re-evalutation: 03/11/18 11:10 EKG NSR, QT 376, QTC 434 03/11/18 12:16 consult Allan (psych) will reassess her in late afternoon to see if the haldol IM is kicking in and see if she can go home this afternoon. 03/11/18 12:33 Patient refuses Haldol and Cogentin IM she states that that is outdated they used in [place] they stopped it she wants Seroquel and trazodone. She states she lives in a safe place with someone in [place] but she will not tell me who it is. When she was in [facility] 2 months ago she was treated with Seroquel and trazodone and that seemed to work. Psych Avila is back in the room and is going to call Dr. Villafana back. The patient wants to leave. She wants resources for psych help in the community. She is to go to [facility]. 03/11/18 13:07 Patient is conversing normally twice with me and Avila. She wants the resources for outpatient psychiatric care in order to get the medication that she wants Seroquel and trazodone. She denies being suicidal or wanting to harm herself or hurting other people several times through this decision making this afternoon. - Vital Signs Vital signs: Temp Pulse Resp BP Pulse Ox 98.1 F 90 18 115/75 100 03/11/18 13:26 03/11/18 13:26 03/11/18 13:26 03/11/18 13:26 03/11/18 13:26 - Laboratory Result Diagrams: 03/11/18 11:00 03/11/18 11:00 Laboratory results interpreted by me: 03/11/18 03/11/18 10:40 11:00 Est GFR (Non-Af Amer) 59 L Urine Blood LARGE H Urine Ascorbic Acid 20 H Salicylates < 1.0 L Acetaminophen < 10 L Discharge - Discharge Clinical Impression: Schizoaffective disorder Qualifiers: Schizoaffective disorder type: bipolar Qualified Code(s): F25.0 - Schizoaffective disorder, bipolar type Condition: Good Disposition: HOME, SELF-CARE Instructions: Bipolar Disorder ([facility]), Schizophrenia ([facility]) Additional Instructions: seek outpatient care, list given to you for the medications that you want Return to the emergency room if you have any worsening symptoms or harmful thoughts.
[2018-03-11 11:22] LABS: ABSOLUTE EOSINOPHILS # (AUTO) 0.1 10^3/uL (0.0-0.6); ABSOLUTE LYMPHOCYTES (AUTO) 1.4 10^3/uL (0.5-4.7); ABSOLUTE MONOCYTES (AUTO) 0.3 10^3/uL (0.1-1.4); ABSOLUTE NEUT (AUTO) 2.6 10^3/uL (1.7-8.2); BASOPHILS % (AUTO) 0.2 % (0-2); EOSINOPHILS % (AUTO) 1.2 % (0-6); HEMATOCRIT 39.9 % (36.0-47.0); HEMOGLOBIN 13.6 g/dL (12.0-15.5); LYMPHOCYTES % (AUTO) 32.7 % (13-45); MEAN CORPUSCULAR HEMOGLOBIN 31.2 pg (27.0-33.4); MEAN CORPUSCULAR VOLUME 92 fl (80-97); MONOCYTES % (AUTO) 6.3 % (3-13); PLATELET COUNT 270 10^3/uL (150-450); RED BLOOD COUNT 4.34 10^6/uL (3.72-5.28); RED CELL DISTRIBUTION WIDTH 13.9 % (11.5-14.0); SEGMENTED NEUTROPHILS % (AUTO) 59.6 % (42-78); TOTAL CELLS COUNTED % (AUTO) 100 %; WHITE BLOOD COUNT 4.3 10^3/uL (4.0-10.5)
[2018-03-11 11:45] LABS: ALANINE AMINOTRANSFERASE 19 U/L (9-52); ALBUMIN 3.5 g/dL (3.5-5.0); ALKALINE PHOSPHATASE 104 U/L (38-126); ANION GAP 9 (5-19); ASPARTATE AMINO TRANSFERASE 14 U/L (14-36); BILIRUBIN,DIRECT 0.2 mg/dL (0.0-0.4); BILIRUBIN,TOTAL 0.3 mg/dL (0.2-1.3); BLOOD UREA NITROGEN 11 mg/dL (7-20); CALCIUM 9.3 mg/dL (8.4-10.2); CARBON DIOXIDE 28 mmol/L (22-30); CHLORIDE 105 mmol/L (98-107); GLUCOSE 96 mg/dL (75-110); POTASSIUM 3.9 mmol/L (3.6-5.0); SODIUM 142.1 mmol/L (137-145)
[2018-03-11] MEDS ORDERED: HALOPERIDOL DECANOATE INJ 100 MG/1 ML VIAL IM ONE (11:46)
[2018-03-11] MEDS ORDERED: BENZTROPINE MESYLATE INJ 2 MG/2 ML AMPULE IM ONE (11:47)
[2018-03-11] MEDS ORDERED: HALOPERIDOL 5 MG TABLET PO ONE (11:47)
[2018-03-11 11:48] LABS: ACETAMINOPHEN < 10 ug/mL (10-30); ALCOHOL < 10 mg/dL (NONE DETECTED); SALICYLATE < 1.0 mg/dL (2.0-20.0)
[2018-03-11 12:01] LABS: APPEARANCE,URINE CLEAR; BILIRUBIN,URINE NEGATIVE (NEGATIVE); COLOR,URINE YELLOW; GLUCOSE, URINE NEGATIVE (NEGATIVE); KETONES,URINE NEGATIVE (NEGATIVE); LEUKOCYTE ESTERASE,URINE NEGATIVE (NEGATIVE); NITRITE,URINE NEGATIVE (NEGATIVE); PROTEIN,URINE NEGATIVE (NEGATIVE); URINE SPECIFIC GRAVITY 1.014; UROBILINOGEN,URINE NEGATIVE mg/dL (<2.0)
[2018-03-11 12:27] LABS: URINE AMPHETAMINES SCREEN NEGATIVE; URINE BARBITURATES SCREEN NEGATIVE; URINE BENZODIAZEPINES SCREEN NEGATIVE; URINE COCAINE SCREEN NEGATIVE; URINE MARIJUANA (THC) SCREEN NEGATIVE; URINE METHADONE SCREEN NEGATIVE; URINE PHENCYCLIDINE SCREEN NEGATIVE
[2018-03-11 13:27] VITALS: BP 115/75
--- NOTE | 2018-03-11 13:32 | PSYCHOLOGICAL NOTE ---
Psych Note - Psych Note Psych Note: Reason for Consult: Suicidal ideation 42 yo female "Kayla is my , God struck me down" "I wonder when I go back into action" "She wants to know if she can be comiitted." Here with Juan Pablo from [facility] who went to her house- [facility] called him, that Kayla needed assistance due to internal struggle between God and the Devil, she told him that "the devil is doing his work through me." Upon entering the room, the patient is staring blankly at the ceiling; when clinician attempts to engage the patient, the patient delayed answering for about 30 seconds and then responded "I am sorry was taking care of something can I help you." The patient then stated "I took over Satkar and he fell in love with me." Patient asked if she can be committed. When it was asked by the patient felt she needed to be committed she stated "well I do not know if you do not think I needed then that is okay." Clinician discussed previous visit the patient received a Haldol Decanoate which has been longer than 3-4 weeks ago and asked if the patient has an outpatient mental health provider yet. Patient states that she goes to [facility] however it has been a while because she is unsure if her insurance is still good. Clinician was notified the patient refused medications. Upon entering the room the patient agreed to the clinician confirmed she did not want Haldol because it is an older treatment that does not work for her. She states that while she was in [place] she was given trazodone and Seroquel which worked really well for her. Patient requests to have these medications instead. When asked about suicidal and homicidal ideation patient stated no; "why would I ever want to do that?" Clinician continue to discuss treatment options with the patient and the patient stated she would request resources so she can continue with outpatient mental health services to include medication management. Patient is noted to be very calm and appropriate during this entire conversation. Patient is alert and orientated person, place, time and circumstance. Mood is euthymic with congruent affect. Some delusions with adventism overtones are noted; however, these delusions do not put the patient or anyone else in danger. Patient's thought processes are overall organized and linear. Patient denies suicidal and homicidal ideation. Eye contact was fair. Intellectual abilities appear to be within the average range. Attention and concentration are fair. Insight, judgment, impulse control are fair. Medication recommendations per [facility]'s contracted psychiatrist Dr. Jacquie CALLE are as follows 1. Haldol Decanoate 100 mg once 2. Cogentin 1 mg once Diagnosis 295.70 (F25.0) Schizoaffective Disorder, Bipolar Type by history Impression\\plan: Patient is cleared from acute psychiatric services. This patient is well known to this clinician and department. Patient does not meet IVC criteria per [place] GS 122C. Medication recommendations have been provided,but the patient has refused. Patient is not in an acute psychosis and denies suicidal and homicidal ideation; she can chose to take medication or not. Patient is recommended to follow-up with her outpatient mental health provider and has been provided the local resource list. Dr. Villafana was consulted and the care and management this patient; attending physician is agreement with recommendations and disposition.
--- NOTE | 2018-03-11 22:10 | EKG REPORT ---
SEVERITY:- NORMAL ECG - SINUS RHYTHM : Confirmed by: Gustavo Koch 11-Mar-2018 22:09:36
== END 2018-03-11 13:27 | disposition home or self-care (01) ==
LOC: ER 10:11
DX: F25.0 Schizoaffective disorder, bipolar type (principal); R45.851 Suicidal ideations; F17.200 Nicotine dependence, unspecified, uncomplicated; E78.00 Pure hypercholesterolemia, unspecified; I10 Essential (primary) hypertension; E11.9 Type 2 diabetes mellitus without complications
CPT/HCPCS: 93005; 99285; 96372; 36415; 80307 ×4; 85025; 80053; 81001; 93010; J1631; J0515

== ENCOUNTER 2018-03-27 10:42 | Emergency (ER) | payer OTHER ==
--- NOTE | 2018-03-27 11:30 | ER Document Report ---
ED Psych Disorder / Suicide - General Chief Complaint: Psych Problem Stated Complaint: PSYCH EVAL Time Seen by Provider: 03/27/18 10:58 Notes: 42-year-old female to emergency department by ambulance for evaluation of hallucinations. Patient is well-known to the emergency department. Has been seen here on multiple occasions for the same. Patient has a large amount of scientology overtones. Has communications was Satan and states that she is constantly undergoing spiritual cat with the double she denies any suicidal or homicidal ideation at this time. Is alert and oriented to person place time and event. Patient thinks that she needs to be admitted to a psychiatric hospital. TRAVEL OUTSIDE OF THE [place] IN LAST 30 DAYS: No - HPI Patient complains to provider of: Bizarre behavior, Hallucinating. No: Homicidal ideation, Overdose, Suicidal ideation, Suicidal plan, Suicidal attempt , Self injury Onset was: Cannot confirm Suicide Risk Factors: Bipolar, Schizophrenia - Related Data Allergies/Adverse Reactions: No Known Allergies Allergy (Verified 03/27/18 11:37) Past Medical History - General Information source: Patient - Social History Smoking Status: Current Every Day Smoker Cigarette use (# per day): Yes Chew tobacco use (# tins/day): No Frequency of alcohol use: None Drug Abuse: None Lives with: Family Family History: None, Other - Unknown Patient has suicidal ideation: No Patient has homicidal ideation: No - Past Medical History Cardiac Medical History: Reports: Hx Hypercholesterolemia, Hx Hypertension Endocrine Medical History: Reports: Hx Diabetes Mellitus Type 2 Renal/ Medical History: Denies: Hx Peritoneal Dialysis Psychiatric Medical History: Reports: Hx Bipolar Disorder, Hx Schizophrenia Past Surgical History: Reports: Hx Section Review of Systems - Review of Systems Notes: Constitutional: denies: Chills, Diaphoresis, Fever, Malaise, Weakness EENT: denies: Eye discharge, Blurred vision, Tearing, Double vision, Nose congestion, Nose discharge, Throat swelling, Mouth pain Cardiovascular: denies: Palpitations, Heart racing, Orthopnea, Dyspnea, Chest pain Respiratory: denies: Cough, Hurts to breathe, Wheezing, Shortness of breath Gastrointestinal: denies: Abdominal pain, Diarrhea, Nausea, Vomiting, Black stools, bright red blood in stool Genitourinary: denies: Burning, Dysuria, Discharge, Frequency, Flank pain, Hematuria Musculoskeletal: denies: Joint pain, Joint swelling, Muscle pain, Muscle stiffness, back pain Hematologic/Lymphatic: denies: Anemia, Easy bleeding, Easy bruising, Blood clots Neurological/Psychological: denies: Confusion, Dementia, Depression, Loss of consciousness. Patient does endorse auditory hallucinations. Skin: No lesions, no masses, no skin breakdown, no abscesses Physical Exam - Vital signs Vitals: Temp Pulse Resp BP Pulse Ox 98.5 F 104 H 20 144/83 H 98 03/27/18 11:09 03/27/18 11:09 03/27/18 11:09 03/27/18 11:09 03/27/18 11:09 Interpretation: Tachycardic - General General appearance: Appears well, Alert - HEENT Head: Normocephalic, Atraumatic Eyes: Normal Pupils: PERRL - Respiratory Respiratory status: No respiratory distress Chest status: Nontender Breath sounds: Normal Chest palpation: Normal - Cardiovascular Rhythm: Tachycardia Heart sounds: Normal auscultation Murmur: No - Abdominal Inspection: Normal Distension: No distension Bowel sounds: Normal Tenderness: Nontender Organomegaly: No organomegaly - Back Back: Normal, Nontender - Extremities General upper extremity: Normal inspection, Nontender, Normal color, Normal ROM , Normal temperature General lower extremity: Normal inspection, Nontender, Normal color, Normal ROM , Normal temperature, Normal weight bearing. No: Serg's sign - Neurological Neuro grossly intact: Yes Cognition: Normal Orientation: AAOx4 [place] Coma Scale Eye Opening: Spontaneous Asha Coma Scale Verbal: Oriented [place] Coma Scale Motor: Obeys Commands [place] Coma Scale Total: 15 Speech: Normal Motor strength normal: LUE, RUE, LLE, RLE Sensory: Normal - Psychological Associated symptoms: Other - Patient has decent mentation. AxO 4. Has linear thought. Mood seems euthymic. No active suicidal ideation. - Skin Skin Temperature: Warm Skin Moisture: Dry Skin Color: Normal Course - Re-evaluation Re-evalutation: 03/27/18 11:54 Patient is well-known to the emergency department and to the mental health team. Likely patient needs some medication adjustments. I do not find any clear reason to place her on [employer] papers at this time. We will have mental health see. 03/27/18 18:16 Mental health is seen. I have given her some long-acting Haldol as well as Thorazine. Patient is still quite erratic. Do not feel patient is safe at this time to be discharged. I believe patient needs to be evaluated overnight and potentially remedicated. I just went back to reevaluate patient and she had her pants off and was still talking about Satan having sex with her. Do not feel this represents normal behavior in any way and did not feel patient is able to take care of herself in this particular condition. From a medical standpoint though patient is clear for psychiatric disposition. 03/27/18 18:17 Laboratory 03/27/18 03/27/18 03/27/18 11:15 11:15 11:15 WBC 5.1 RBC 4.16 Hgb 13.1 Hct 38.3 MCV 92 MCH 31.4 MCHC 34.1 RDW 13.9 Plt Count 275 Seg Neutrophils % 61.5 Lymphocytes % 31.1 Monocytes % 5.3 Eosinophils % 1.3 Basophils % 0.8 Absolute Neutrophils 3.1 Absolute Lymphocytes 1.6 Absolute Monocytes 0.3 Absolute Eosinophils 0.1 Absolute Basophils 0.0 Sodium 145.0 Potassium 4.1 Chloride 111 H Carbon Dioxide 23 Anion Gap 11 BUN 10 Creatinine 0.74 Est GFR ( Amer) > 60 Est GFR (Non-Af Amer) > 60 Glucose 81 Calcium 9.0 Total Bilirubin 0.4 Direct Bilirubin 0.2 Neonat Total Bilirubin Not Reportable Neonat Direct Bilirubin Not Reportable Neonat Indirect Bili Not Reportable AST 14 ALT 18 Alkaline Phosphatase 111 Total Protein 7.1 Albumin 3.8 Urine Color YELLOW Urine Appearance SLIGHTLY-CLOUDY Urine pH 5.0 Ur Specific [place] 1.025 Urine Protein NEGATIVE Urine Glucose (UA) NEGATIVE Urine Ketones TRACE H Urine Blood NEGATIVE Urine Nitrite NEGATIVE Urine Bilirubin NEGATIVE Urine Urobilinogen 4.0 H Ur Leukocyte Esterase SMALL H Urine WBC (Auto) 4 Urine RBC (Auto) 2 U Hyaline Cast (Auto) 1 Urine Bacteria (Auto) TRACE Squamous Epi Cells Auto 9 Urine Mucus (Auto) FEW Urine Ascorbic Acid NEGATIVE Urine HCG, Qual NEGATIVE Salicylates < 1.0 L Urine Opiates Screen Urine Methadone Screen Acetaminophen < 10 L Ur Barbiturates Screen Ur Phencyclidine Scrn Ur Amphetamines Screen U Benzodiazepines Scrn Urine Cocaine Screen U Marijuana (THC) Screen Serum Alcohol < 10 03/27/18 11:15 WBC RBC Hgb Hct MCV MCH MCHC RDW Plt Count Seg Neutrophils % Lymphocytes % Monocytes % Eosinophils % Basophils % Absolute Neutrophils Absolute Lymphocytes Absolute Monocytes Absolute Eosinophils Absolute Basophils Sodium Potassium Chloride Carbon Dioxide Anion Gap BUN Creatinine Est GFR ( Amer) Est GFR (Non-Af Amer) Glucose Calcium Total Bilirubin Direct Bilirubin Neonat Total Bilirubin Neonat Direct Bilirubin Neonat Indirect Bili AST ALT Alkaline Phosphatase Total Protein Albumin Urine Color Urine Appearance Urine pH Ur Specific [place] Urine Protein Urine Glucose (UA) Urine Ketones Urine Blood Urine Nitrite Urine Bilirubin Urine Urobilinogen Ur Leukocyte Esterase Urine WBC (Auto) Urine RBC (Auto) U Hyaline Cast (Auto) Urine Bacteria (Auto) Squamous Epi Cells Auto Urine Mucus (Auto) Urine Ascorbic Acid Urine HCG, Qual Salicylates Urine Opiates Screen NEGATIVE Urine Methadone Screen NEGATIVE Acetaminophen Ur Barbiturates Screen NEGATIVE Ur Phencyclidine Scrn NEGATIVE Ur Amphetamines Screen NEGATIVE U Benzodiazepines Scrn NEGATIVE Urine Cocaine Screen NEGATIVE U Marijuana (THC) Screen NEGATIVE Serum Alcohol - Vital Signs Vital signs: Temp Pulse Resp BP Pulse Ox 98.5 F 104 H 20 144/83 H 98 03/27/18 11:09 03/27/18 11:09 03/27/18 11:09 03/27/18 11:09 03/27/18 11:09 - Laboratory Result Diagrams: 03/27/18 11:15 03/27/18 11:15 Laboratory results interpreted by me: 03/27/18 03/27/18 11:15 11:15 Chloride 111 H Urine Ketones TRACE H Urine Urobilinogen 4.0 H Ur Leukocyte Esterase SMALL H Salicylates < 1.0 L Acetaminophen < 10 L - EKG Interpretation by Pa EKG shows normal: Sinus rhythm, Smoot, Intervals, QRS Complexes, ST-T Waves
--- NOTE | 2018-03-27 11:45 | PSYCHOLOGICAL NOTE ---
Psych Note - Psych Note Psych Note: Reason For Consult:psychosis PT arrives to Er today via EMS duet to pt was at [facility] and started to have audible and visual hallucinations of satan touching her and speaking to her. pt states she is between god and satans battles and she cant take it anymore, pt states she wants to go [place] to get help and that she needs meds because she cannot afford her meds. pt demonstrating labile behaviors, talking to unseen persons, pt noted to have some verbal aggression but redirectable, pt making inappropriate statements to staff at times, pt making sexual statements stating gay makes her masturbate and she is having sex in the room. Clinician met with patient after receiving medication recommendations. Patient reports she was having difficulties with Satan; reporting that she needs to block Satan out. She continued disclosed that she is not sure she needs to go to the hospital but was glad that she took medications that she was provided. Patient confirms she still does not have an outpatient mental health provider. Patient denies having any other questions or concerns. Patient denies thoughts of wanting to harm herself or others. Patient is alert and orientated to person, place, time and circumstance. Mood is euthymic with congruent affect. Patient is observed laying calmly in the bed and resting (no psychomotor agitation). Patient denies homicidal suicidal ideation. Patient suffers from chronic delusions religiosity. While patient is able to have an organized linear conversation this is interrupted with frequent bouts of arguing and screaming at "others" in the room. Patient is also noted to make bizarre comments in direct correlation with her delusions of Satan. Intellectual abilities appear to be within average range. Attention and concentration are fair. Insight, judgment, impulse control are fair. Medication recommendations per [facility]'s contracted psychiatrist Dr. Jacquie CALLE are as follows 1. Haldol Decanoate 100 mg once 2. Cogentin 1 mg once 3. Thorazine 50mg once Diagnosis 295.70 (F25.0) Schizoaffective Disorder, Bipolar Type by history Impression\\plan: Patient is recommended for overnight observation. This patient is well-known to this clinician and department. Patient was just seen March 11 2018 and refused medications. Today patient requested medications and took them. Patient's patient is currently without an outpatient mental health provider. Referral will be submitted for community paramedics. Dr. Villafana was consulted and the care and management this patient; attending physician is agreement with recommendations and disposition.
[2018-03-27 11:50] LABS: ABSOLUTE EOSINOPHILS # (AUTO) 0.1 10^3/uL (0.0-0.6); ABSOLUTE LYMPHOCYTES (AUTO) 1.6 10^3/uL (0.5-4.7); ABSOLUTE MONOCYTES (AUTO) 0.3 10^3/uL (0.1-1.4); ABSOLUTE NEUT (AUTO) 3.1 10^3/uL (1.7-8.2); BASOPHILS % (AUTO) 0.8 % (0-2); EOSINOPHILS % (AUTO) 1.3 % (0-6); HEMATOCRIT 38.3 % (36.0-47.0); HEMOGLOBIN 13.1 g/dL (12.0-15.5); LYMPHOCYTES % (AUTO) 31.1 % (13-45); MEAN CORPUSCULAR HEMOGLOBIN 31.4 pg (27.0-33.4); MEAN CORPUSCULAR HGB CONC 34.1 g/dL (32.0-36.0); MEAN CORPUSCULAR VOLUME 92 fl (80-97); MONOCYTES % (AUTO) 5.3 % (3-13); PLATELET COUNT 275 10^3/uL (150-450); RED BLOOD COUNT 4.16 10^6/uL (3.72-5.28); RED CELL DISTRIBUTION WIDTH 13.9 % (11.5-14.0); SEGMENTED NEUTROPHILS % (AUTO) 61.5 % (42-78); TOTAL CELLS COUNTED % (AUTO) 100 %; WHITE BLOOD COUNT 5.1 10^3/uL (4.0-10.5)
[2018-03-27 11:59] LABS: APPEARANCE,URINE SLIGHTLY-CLOUDY; BILIRUBIN,URINE NEGATIVE (NEGATIVE); COLOR,URINE YELLOW; GLUCOSE, URINE NEGATIVE (NEGATIVE); KETONES,URINE TRACE mg/dL (NEGATIVE); LEUKOCYTE ESTERASE,URINE SMALL (NEGATIVE); NITRITE,URINE NEGATIVE (NEGATIVE); PROTEIN,URINE NEGATIVE (NEGATIVE); URINE SPECIFIC GRAVITY 1.025
[2018-03-27 12:10] LABS: ALANINE AMINOTRANSFERASE 18 U/L (9-52); ALBUMIN 3.8 g/dL (3.5-5.0); ALKALINE PHOSPHATASE 111 U/L (38-126); ANION GAP 11 (5-19); ASPARTATE AMINO TRANSFERASE 14 U/L (14-36); BILIRUBIN,DIRECT 0.2 mg/dL (0.0-0.4); BILIRUBIN,TOTAL 0.4 mg/dL (0.2-1.3); BLOOD UREA NITROGEN 10 mg/dL (7-20); CARBON DIOXIDE 23 mmol/L (22-30); CHLORIDE 111 mmol/L (98-107); GLUCOSE 81 mg/dL (75-110); POTASSIUM 4.1 mmol/L (3.6-5.0); TOTAL PROTEIN 7.1 g/dL (6.3-8.2)
[2018-03-27 12:12] LABS: ACETAMINOPHEN < 10 ug/mL (10-30); ALCOHOL < 10 mg/dL (NONE DETECTED); SALICYLATE < 1.0 mg/dL (2.0-20.0)
[2018-03-27 12:21] LABS: URINE AMPHETAMINES SCREEN NEGATIVE; URINE BARBITURATES SCREEN NEGATIVE; URINE BENZODIAZEPINES SCREEN NEGATIVE; URINE COCAINE SCREEN NEGATIVE; URINE MARIJUANA (THC) SCREEN NEGATIVE; URINE METHADONE SCREEN NEGATIVE; URINE PHENCYCLIDINE SCREEN NEGATIVE
--- NOTE | 2018-03-27 12:21 | EKG REPORT ---
SEVERITY:- ABNORMAL ECG - SINUS RHYTHM PROBABLE LEFT ATRIAL ABNORMALITY ABNRM R PROG, CONSIDER ASMI OR LEAD PLACEMENT BORDERLINE T WAVE ABNORMALITIES : Confirmed by: Felipe Thompson MD 27-Mar-2018 12:20:18
[2018-03-27] MEDS ORDERED: HALOPERIDOL DECANOATE INJ 100 MG/1 ML VIAL IM ONE (12:46)
[2018-03-27] MEDS ORDERED: BENZTROPINE MESYLATE INJ 2 MG/2 ML AMPULE IM ONE (12:47)
[2018-03-27] MEDS ORDERED: CHLORPROMAZINE HCL 50 MG TABLET PO ONE (14:36)
[2018-03-27] MEDS ORDERED: NICOTINE 14 MG/24 HR PATCH.TD24 TD ONE (21:57)
--- NOTE | 2018-03-28 10:06 | PSYCHOLOGICAL NOTE ---
Psych Note - Psych Note Psych Note: Reason For Consult:psychosis PT arrives to Er today via EMS duet to pt [facility] and started to have audible and visual hallucinations of satan touching her and speaking to her. pt states she is between god and satans battles and she cant take it anymore, pt states she wants to go [place] to get help and that she needs meds because she cannot afford her meds. pt demonstrating labile behaviors, talking to unseen persons, pt noted to have some verbal aggression but redirectable, pt making inappropriate statements to staff at times, pt making sexual statements stating gay makes her masturbate and she is having sex in the room. Clinician conducted check-in with patient Patient is observed talking and arguing to herself in her room. Patient is noted to be possible talking in 3rd person; however, it is unclear if the patient is talking about herself when "arguing" with her hallucinations (ie "Kayla doesn't do that...Leave Kayla out of this..."). after about 3 attempts patient does respond to clinician stating good morning and reports that she slept well. Patient then immediately regresses to interacting with her hallucinations. Medication recommendations per [facility]'s contracted psychiatrist Dr. Jacquie CALLE are as follows 1. Haldol 5mg twice a day 2. Cogentin 1 mg twice a day 3. Thorazine 100mg every 6 hours as needed 4. Depakote 500mg twice daily Diagnosis 295.70 (F25.0) Schizoaffective Disorder, Bipolar Type by history Impression\\plan: Patient is recommended for IVC. This patient is well-known to this clinician and department. Patient was just seen March 11 2018 and refused medications. Patient has decompensated since her arrival. Patient's patient is currently without an outpatient mental health provider. Referral will be submitted for community paramedics however at this time placement is being sought. Dr. Villafana was consulted and the care and management this patient; attending physician is agreement with recommendations and disposition.
--- NOTE | 2018-03-28 10:13 | ER Document Report ---
Doctor's Note Notes: 03/28/18 10:13 Patient continues to act out. It is my opinion at this time that she would benefit from inpatient therapy. I have signed the petition. I am going to place her on Thorazine 100 mg as needed every 6 hours IM as needed. Depakote 500 mg twice daily, Haldol 5 mg twice daily and Cogentin 1 mg twice daily.
[2018-03-28] MEDS: HALOPERIDOL 5 MG TABLET PO SCH ×2 (11:04→18:45)
[2018-03-28] MEDS: BENZTROPINE MESYLATE 1 MG TABLET PO SCH ×2 (11:04→18:45)
[2018-03-28] MEDS: DIVALPROEX SODIUM 250 MG TABLET.DR PO SCH ×2 (11:04→18:45)
[2018-03-29] MEDS: BENZTROPINE MESYLATE 1 MG TABLET PO SCH ×2 (09:28→18:39)
[2018-03-29] MEDS: DIVALPROEX SODIUM 250 MG TABLET.DR PO SCH ×2 (09:28→18:39)
[2018-03-29] MEDS: HALOPERIDOL 5 MG TABLET PO SCH ×2 (09:28→18:39)
--- NOTE | 2018-03-29 17:03 | PSYCHOLOGICAL NOTE ---
Psych Note - Psych Note Psych Note: Reason for Consult: Psychosis Patient displays acute psychotic delusions of religiosity. Auditory/visual hallucinations. Patient has been denied at [place]. Behavioral Health Care team is actively looking for placement. Patient was re-evaluated today by this teletypewriter operator. Patient articulates that she is having sex with Satan, hearing voices with no specific instructions or identity , agitated affect, pouring juice into her hand and wiping in on her pajamas. no eye contact. Thoughts are not organized, linear. Will only demand to see the doctor. Medicine was given at 10am per Nurse Huong. Medication recommendations per [facility]'s contracted psychiatrist Dr. Jacquie CALLE are as follows: 1. Haldol 5 mg twice a day 2. Cogentin 1 mg twice per day 3. Thorazine 100mg every 6 hours as needed 4. Depakote 500mg twice daily Diagnosis: 295.70 (F25.0) Schizoaffective Disorder, Bipolar Type by history Impression/Plan: Patient is recommended to continue IVC. Patient continues to decompensate during her stay. Patient observed talking and arguing with herself in her room. Patient does not have a current mental health provider and placement is being sought. Dr. Villafana was consulted and the care and management this patient; attending physician is agreement with recommendations and disposition. 03/30/18 This clinician visited the patient's room at 9:10 am for observation. Patient was in an active conversation with another person but no one was in the room. Patient inquired about being discharged. Clinician shared that placement was currently being sought. patient said "ok". Clinician observed the patient walk out of her room to the nurse's station and ask for juice. But did not want the male nurse to give it to her , so she walked down to end of the desk and began to talk with another nurse.
[2018-03-29] MEDS: CHLORPROMAZINE HCL INJ 25 MG/1 ML AMPULE IM PRN (20:08)
[2018-03-29] MEDS ORDERED: NICOTINE 21 MG/24 HR PATCH.TD24 TD ONE (21:28)
[2018-03-30] MEDS: DIVALPROEX SODIUM 250 MG TABLET.DR PO SCH ×2 (09:01→19:33)
[2018-03-30] MEDS: BENZTROPINE MESYLATE 1 MG TABLET PO SCH ×2 (09:01→17:52)
[2018-03-30] MEDS: HALOPERIDOL 5 MG TABLET PO SCH ×2 (09:01→17:52)
--- NOTE | 2018-03-30 11:36 | ER Document Report ---
Doctor's Note Notes: 03/30/18 11:29 This 42 year old female presented for evaluation of schizophrenia and response to external stimuli with persistent hallucinations she is currently awaiting placement for her behavior. Evaluation this patient continues to respond to external stimuli, she is ambulatory in the room otherwise well-appearing eating and drinking normally. She speaks nonsensically with a pressured high flow. We will continue to monitor patient if needed we will reassess and re-sign IVC paperwork as I do believe she is currently a danger to both herself as well as potentially others.
[2018-03-30] MEDS: CHLORPROMAZINE HCL INJ 25 MG/1 ML AMPULE IM PRN (12:02)
--- NOTE | 2018-03-30 16:04 | PSYCHOLOGICAL NOTE ---
Psych Note - Psych Note Psych Note: Psych Note: Reason for Consult: Psychosis Patient displays acute psychotic delusions of religiosity. Auditory/visual hallucinations. Patient has been denied at [place]. Behavioral Health Care team is actively looking for placement. 03/30/18 This clinician visited the patient's room at 9:10 am for observation. Patient was in an active conversation with another person but no one was in the room. Patient inquired about being discharged. Clinician shared that placement was currently being sought. patient said "ok". Clinician observed the patient walk out of her room to the nurse's station and ask for juice. But did not want the male nurse to give it to her , so she walked down to end of the desk and began to talk with another nurse. Medication recommendations per [facility]'s contracted psychiatrist Dr. Jacquie CALLE are as follows: 1. Haldol 5 mg twice a day 2. Cogentin 1 mg twice per day 3. Thorazine 100mg every 6 hours as needed 4. Depakote 500mg twice daily Diagnosis: 295.70 (F25.0) Schizoaffective Disorder, Bipolar Type by history Impression/Plan: Patient is recommended to continue IVC. Patient continues to decompensate during her stay. Patient observed talking and arguing with herself in her room. Patient does not have a current mental health provider and placement is being sought. Dr. Villafana was consulted and the care and management this patient; attending physician is agreement with recommendations and disposition.
[2018-03-31 08:21] VITALS: BP 123/81
[2018-03-31] MEDS: DIVALPROEX SODIUM 250 MG TABLET.DR PO SCH (10:08)
[2018-03-31] MEDS: HALOPERIDOL 5 MG TABLET PO SCH (10:08)
[2018-03-31] MEDS: BENZTROPINE MESYLATE 1 MG TABLET PO SCH (10:08)
--- NOTE | 2018-03-31 12:51 | ER Document Report ---
Discharge - Discharge Clinical Impression: Schizoaffective disorder Qualifiers: Schizoaffective disorder type: bipolar Qualified Code(s): F25.0 - Schizoaffective disorder, bipolar type Condition: Stable Disposition: HOME, SELF-CARE Additional Instructions: You have been evaluated by both medical and behavioral health teams and have been deemed appropriate for discharge. It is recommended you follow up with [facility] in 3-5 days for your continued outpatient mental health services. Bipolar Disorder Bipolar disorder is also called manic-depressive disorder. Depression alternates with brain hyperactivity called isabel. Each phase lasts from several days to a few weeks. We don't know exactly what causes bipolar disorder , but it's treatable. During the "manic phase," you may feel elated and energetic. You may have racing thoughts, rapid speech, increased activity, and grandiose ideas. During this time, you may not realize how poor your judgement is. Inappropriate spending, drug abuse, excessive alcohol use, marriage problems, and irresponsible sexual behavior are common during the manic phase. During the "depressive phase," you might feel depressed, guilty, worthless , fatigued, and unable to concentrate. You might have thoughts of suicide. Good treatments are available for bipolar disorder. Platte is a classic drug for bipolar disorder, and is still often useful. If the manic phase is very mild, an antidepressant alone can be prescribed. If the manic phase is very severe, an antipsychotic medicine (such as Haldol) may be needed. The treatment must be matched to your symptoms, so it's important to work closely with your psychiatric care provider. Contact your physician, the hospital emergency center, crisis line, or your counsellor if you are losing control or having self-destructive thoughts. Hallucinations You seem to be having hallucinations. Hallucinations are seeing, hearing, or feeling things that don't exist. These symptoms commonly occur with drug abuse and schizophrenia. Drugs like PCP, LSD, MDMA, peyote, and "psychedelic mushrooms" can cause frightening hallucinations. Users of methamphetamine or crack cocaine often see and feel bugs crawling on their skin. Patients with schizophrenia may hear voices that no one else can hear. The delusions of schizophrenia often involve conspiracies or relationships that are not real. When symptoms are due to drug abuse, the mental state usually improves as the drug wears off. Someone you trust should be with you until you are better, to protect you and calm your fears. Tranquilizer medicine is helpful at controlling hallucinations, anxiety, and deluded thoughts. Get a proper diet and enough sleep. Most patients do very well when they get proper medical treatment and social support. You should return at once if your symptoms get worse, if you are having suicidal thoughts or thoughts about hurting others, or if you feel that you are in danger. Prescriptions: Benztropine Mesylate [Cogentin 1 mg Tablet] 1 mg PO DAILY #7 tablet Divalproex Sodium [Depakote] 500 mg PO BID #14 tablet. Haloperidol [Haldol 5 mg Tablet] 5 mg PO BID #14 tablet Referrals: [facility] [Outside] - Follow up tomorrow
--- NOTE | 2018-04-02 14:09 | PSYCHOLOGICAL NOTE ---
Psych Note - Psych Note Psych Note: Reason For Consult:psychosis PT arrives to Er today via EMS duet to pt was at [facility] kitchen and started to have audible and visual hallucinations of satan touching her and speaking to her. pt states she is between god and satans battles and she cant take it anymore, pt states she wants to go [place] to get help and that she needs meds because she cannot afford her meds. pt demonstrating labile behaviors, talking to unseen persons, pt noted to have some verbal aggression but redirectable, pt making inappropriate statements to staff at times, pt making sexual statements stating gay makes her masturbate and she is having sex in the room. Clinician conducted check-in with patient Patient discussed wanting outpatient mental health services. She was able to disclose that she no longer go to [facility] because she needs to pay a co-pay. She continued to state that she is unsure if she will have money for medication. She disclosed that she currently has $3 with her belongings and plans to take the bus home. Disclose she normally catches the bus [place] however when the clinician pointed out there is a bus stop right outside of the emergency room doors patient stated that she would take the bus from there; "I don't know why I walk all the way over there... that is so much closer...I am so silly." Patient is noted to mention her bahai delusions stating that she has been in a fight between saline in the Lord. Clinician notes this is baseline for the patient, she is no longer demonstrating labile affect. Patient is no longer demonstrating behavior indicating responding to internal stimuli i.e. can have an organized and linear conversation, makes good eye contact, and conversational speech is within normal rate, tone and prosody. Medication recommendations per [facility]'s contracted psychiatrist Dr. Jacquie CALLE are as follows 1. Haldol 5mg twice a day 2. Cogentin 1 mg twice a day 3. Thorazine 100mg every 6 hours as needed 4. Depakote 500mg twice daily Diagnosis 295.70 (F25.0) Schizoaffective Disorder, Bipolar Type by history Impression\\plan: Patient is recommended for rescind of IVC and is cleared from acute psychiatric services. This patient is well-known to clinician and department and is now presenting at baseline which include persistent delusions and making bizarre statements. Patient no longer meets IVC criteria per [place] GS 122C. Patient is no longer demonstrating behavior indicating responding to internal stimuli i.e. can have an organized and linear conversation, makes good eye contact, and conversational speech is within normal rate, tone and prosody. Patient is no longer demonstrating manic. Clinician notes patient did receive a Haldol Decanoate shot on 03/27/2018 which assists symptoms for 3-4 weeks. APS report submitted with concerns of patient's continual decompensation and showing signs of possibly having chronically impaired insight and judgment in regards to self-care (ie. not taking medications, not finding a new provider, losing her Medicaid coverage, ect.) Patient disclosed that she wants to have outpatient assistance but is unable to demonstrate follow through. IFS referral submitted so patient has mobile crisis started for higher level assistance in obtaining outpatient services. Dr. Villafana was consulted and the care and management this patient; attending physician is agreement with recommendations and disposition.
== END 2018-03-31 13:32 | disposition home or self-care (01) ==
LOC: ER 10:42
DX: F25.0 Schizoaffective disorder, bipolar type (principal); F17.210 Nicotine dependence, cigarettes, uncomplicated; E78.00 Pure hypercholesterolemia, unspecified; I10 Essential (primary) hypertension; E11.9 Type 2 diabetes mellitus without complications
CPT/HCPCS: 93005; 99285; 96372; 36415; 80307 ×4; 85025; 81025; 80053; 81001; 93010; J3490 ×15; J0515; J3230 ×2; J1631

== ENCOUNTER 2018-06-19 17:10 | Emergency (ER) | payer OTHER ==
[2018-06-19] MEDS ORDERED: CHLORPROMAZINE HCL INJ 25 MG/1 ML AMPULE IM ONE (17:29)
[2018-06-19] MEDS ORDERED: BENZTROPINE MESYLATE INJ 2 MG/2 ML AMPULE IM ONE (17:30)
[2018-06-19] MEDS ORDERED: HALOPERIDOL DECANOATE INJ 100 MG/1 ML VIAL IM ONE (17:30)
--- NOTE | 2018-06-19 17:31 | ER Document Report ---
ED Psych Disorder / Suicide - General Chief Complaint: Suicidal Ideation Stated Complaint: PSYCH EVAL Time Seen by Provider: 06/19/18 17:24 Notes: This is a 42-year-old -[place] female well-known to the emergency department with a history of schizophrenia and bipolar as well as substance abuse who presents to the ER screaming and yelling. Mildly combative. States that nobody is taking her seriously. Wants her "sugar checked". Denies any pain. Denies any other major symptoms at this time. TRAVEL OUTSIDE OF THE [place] IN LAST 30 DAYS: No - HPI Patient complains to provider of: Agitated, Bizarre behavior, Hallucinating Onset was: Cannot confirm - Related Data Allergies/Adverse Reactions: No Known Allergies Allergy (Verified 03/27/18 11:37) Past Medical History - General Information source: Patient, [facility] Records - Social History Smoking Status: Current Some Day Smoker Frequency of alcohol use: Occasional Drug Abuse: Cocaine, Marijuana Lives with: Alone Family History: None, Other - Unknown Patient has suicidal ideation: Yes Patient has homicidal ideation: Yes - Past Medical History Cardiac Medical History: Reports: Hx Hypercholesterolemia, Hx Hypertension Endocrine Medical History: Reports: Hx Diabetes Mellitus Type 2 Renal/ Medical History: Denies: Hx Peritoneal Dialysis Psychiatric Medical History: Reports: Hx Bipolar Disorder, Hx Schizophrenia Past Surgical History: Reports: Hx Section Review of Systems - Review of Systems Constitutional: No symptoms reported EENT: No symptoms reported Cardiovascular: No symptoms reported Respiratory: No symptoms reported Gastrointestinal: No symptoms reported Genitourinary: No symptoms reported Female Genitourinary: No symptoms reported Musculoskeletal: No symptoms reported Skin: No symptoms reported Hematologic/Lymphatic: No symptoms reported Neurological/Psychological: No symptoms reported Physical Exam - Vital signs Interpretation: Normal - General General appearance: Appears well, Alert - HEENT Head: Normocephalic, Atraumatic Eyes: Normal Pupils: PERRL - Respiratory Respiratory status: No respiratory distress Chest status: Nontender Breath sounds: Normal Chest palpation: Normal - Cardiovascular Rhythm: Regular Heart sounds: Normal auscultation Murmur: No - Abdominal Inspection: Normal Distension: No distension Bowel sounds: Normal Tenderness: Nontender Organomegaly: No organomegaly - Back Back: Normal, Nontender - Extremities General upper extremity: Normal inspection, Nontender, Normal color, Normal ROM , Normal temperature General lower extremity: Normal inspection, Nontender, Normal color, Normal ROM , Normal temperature, Normal weight bearing. No: Serg's sign - Neurological Neuro grossly intact: Yes Cognition: Normal Orientation: AAOx4 Braithwaite Coma Scale Eye Opening: Spontaneous Asha Coma Scale Verbal: Oriented Asha Coma Scale Motor: Obeys Commands Asha Coma Scale Total: 15 Speech: Normal Motor strength normal: LUE, RUE, LLE, RLE Sensory: Normal - Psychological Associated symptoms: Aggressive, Agitated, Auditory hallucinations, Flight of ideas, Restlessness - Skin Skin Temperature: Warm Skin Moisture: Dry Skin Color: Normal Course - Re-evaluation Re-evalutation: 06/19/18 18:38 Stone review of patient's history as well as the fact that I have seen her before I have ordered antipsychotic medications to be given intramuscularly. We will do basic laboratory check and have mental health see her in the morning 06/19/18 18:39 Laboratory 06/19/18 06/19/18 06/19/18 17:49 17:49 17:49 WBC 5.9 RBC 4.24 Hgb 13.6 Hct 39.0 MCV 92 MCH 32.1 MCHC 34.8 RDW 14.2 H Plt Count 302 Seg Neutrophils % 49.4 Lymphocytes % 42.0 Monocytes % 6.4 Eosinophils % 1.2 Basophils % 1.0 Absolute Neutrophils 2.9 Absolute Lymphocytes 2.5 Absolute Monocytes 0.4 Absolute Eosinophils 0.1 Absolute Basophils 0.1 Sodium 140.3 Potassium 3.9 Chloride 106 Carbon Dioxide 23 Anion Gap 11 BUN 13 Creatinine 0.88 Est GFR ( Amer) > 60 Est GFR (Non-Af Amer) > 60 Glucose 91 Calcium 10.0 Total Bilirubin 0.4 Direct Bilirubin 0.1 Neonat Total Bilirubin Not Reportable Neonat Direct Bilirubin Not Reportable Neonat Indirect Bili Not Reportable AST 18 ALT 16 Alkaline Phosphatase 122 Total Protein 7.8 Albumin 4.1 Serum HCG, Qual NEGATIVE Salicylates < 1.0 L Acetaminophen < 10 L Valproic Acid < 10.0 L Serum Alcohol < 10 - Laboratory Result Diagrams: 06/19/18 17:49 06/19/18 17:49 Laboratory results interpreted by me: 06/19/18 06/19/18 17:49 17:49 RDW 14.2 H Salicylates < 1.0 L Acetaminophen < 10 L Valproic Acid < 10.0 L Discharge - Discharge Clinical Impression: Bipolar affective disorder, currently manic, severe, with psychotic features Condition: Fair
[2018-06-19 17:57] LABS: ABSOLUTE BASOPHILS # (AUTO) 0.1 10^3/uL (0.0-0.2); ABSOLUTE EOSINOPHILS # (AUTO) 0.1 10^3/uL (0.0-0.6); ABSOLUTE MONOCYTES (AUTO) 0.4 10^3/uL (0.1-1.4); RED BLOOD COUNT 4.24 10^6/uL (3.72-5.28); TOTAL CELLS COUNTED % (AUTO) 100 %
[2018-06-19 18:02] LABS: ABSOLUTE LYMPHOCYTES (AUTO) 2.5 10^3/uL (0.5-4.7); ABSOLUTE NEUT (AUTO) 2.9 10^3/uL (1.7-8.2); EOSINOPHILS % (AUTO) 1.2 % (0-6); HEMOGLOBIN 13.6 g/dL (12.0-15.5); MEAN CORPUSCULAR HEMOGLOBIN 32.1 pg (27.0-33.4); MEAN CORPUSCULAR HGB CONC 34.8 g/dL (32.0-36.0); MEAN CORPUSCULAR VOLUME 92 fl (80-97); MONOCYTES % (AUTO) 6.4 % (3-13); PLATELET COUNT 302 10^3/uL (150-450); RED CELL DISTRIBUTION WIDTH 14.2 % (11.5-14.0); SEGMENTED NEUTROPHILS % (AUTO) 49.4 % (42-78); WHITE BLOOD COUNT 5.9 10^3/uL (4.0-10.5)
[2018-06-19 18:12] LABS: ALANINE AMINOTRANSFERASE 16 U/L (9-52); ALBUMIN 4.1 g/dL (3.5-5.0); ALKALINE PHOSPHATASE 122 U/L (38-126); ANION GAP 11 (5-19); ASPARTATE AMINO TRANSFERASE 18 U/L (14-36); BILIRUBIN,DIRECT 0.1 mg/dL (0.0-0.4); BILIRUBIN,TOTAL 0.4 mg/dL (0.2-1.3); BLOOD UREA NITROGEN 13 mg/dL (7-20); CARBON DIOXIDE 23 mmol/L (22-30); CHLORIDE 106 mmol/L (98-107); GLUCOSE 91 mg/dL (75-110); POTASSIUM 3.9 mmol/L (3.6-5.0); SODIUM 140.3 mmol/L (137-145); TOTAL PROTEIN 7.8 g/dL (6.3-8.2)
--- NOTE | 2018-06-19 18:13 | EKG REPORT ---
SEVERITY:- NORMAL ECG - SINUS RHYTHM : Confirmed by: Felipe Thompson MD 19-Jun-2018 18:12:19
[2018-06-19 18:18] LABS: ACETAMINOPHEN < 10 ug/mL (10-30); ALCOHOL < 10 mg/dL (NONE DETECTED); SALICYLATE < 1.0 mg/dL (2.0-20.0)
[2018-06-19 19:32] LABS: APPEARANCE,URINE SLIGHTLY-CLOUDY; BILIRUBIN,URINE NEGATIVE (NEGATIVE); COLOR,URINE YELLOW; GLUCOSE, URINE NEGATIVE (NEGATIVE); KETONES,URINE NEGATIVE (NEGATIVE); LEUKOCYTE ESTERASE,URINE NEGATIVE (NEGATIVE); NITRITE,URINE NEGATIVE (NEGATIVE); PROTEIN,URINE NEGATIVE (NEGATIVE); URINE SPECIFIC GRAVITY 1.012; UROBILINOGEN,URINE NEGATIVE mg/dL (<2.0)
[2018-06-19 19:46] LABS: URINE AMPHETAMINES SCREEN NEGATIVE; URINE BARBITURATES SCREEN NEGATIVE; URINE BENZODIAZEPINES SCREEN NEGATIVE; URINE COCAINE SCREEN NEGATIVE; URINE MARIJUANA (THC) SCREEN NEGATIVE; URINE METHADONE SCREEN NEGATIVE; URINE PHENCYCLIDINE SCREEN NEGATIVE
[2018-06-20] MEDS ORDERED: DIPHENHYDRAMINE HCL 25 MG CAPSULE PO ONE (00:03)
--- NOTE | 2018-06-20 10:06 | ER Document Report ---
Doctor's Note Notes: 06/20/18 10:05 Rounds: Chart reviewed and patient interviewed. Patient is very talkative. Pleasant. Denies any thoughts of harming herself. She was very agitated and difficult to manage when she came in last night. She received Thorazine IM and she is also had Haldol decanoate IM. Vital signs are all normal. Lab studies were all normal. Patient appears to be medically stable for transfer or discharge. Roula López MD
[2018-06-20] MEDS ORDERED: CHLORPROMAZINE HCL 50 MG TABLET PO ONE (12:48)
[2018-06-20] MEDS ORDERED: BENZTROPINE MESYLATE 1 MG TABLET PO ONE (12:48)
[2018-06-20 13:20] VITALS: BP 134/76
== END 2018-06-20 13:21 | disposition home or self-care (01) ==
LOC: ER 17:10
DX: F31.2 Bipolar disorder, current episode manic severe with psychotic features (principal); R45.851 Suicidal ideations; F20.9 Schizophrenia, unspecified; F17.200 Nicotine dependence, unspecified, uncomplicated; E78.00 Pure hypercholesterolemia, unspecified; I10 Essential (primary) hypertension; E11.9 Type 2 diabetes mellitus without complications
CPT/HCPCS: 93005; 99284; 96372; 36415; 80307 ×4; 84703; 85025; 80053; 81001; 80164; 93010; J3490 ×3; J0515; J3230; J1631

== ENCOUNTER 2018-06-27 17:02 | Emergency (ER) | payer MEDICAID, OTHER ==
--- NOTE | 2018-06-27 17:28 | ER Document Report ---
ED Medical Screen (RME) - General Chief Complaint: Suicidal Ideation Stated Complaint: PSCY EVAL Time Seen by Provider: 06/27/18 17:26 Mode of Arrival: Medic Information source: Patient Notes: Patient is a 42-year-old female who presents with chief complaint of "med refill ". Patient reports she went to [facility] to have her psychiatric medications refilled however she did not have the $6 to pay for the medications. Patient states she has not had her psychiatric medications for approximately 8 days. Patient reports that she is "psychotic". Patient states she wants to kill herself and has a plan to cut herself. Patient denies any homicidal ideations. Patient requesting to go to inpatient psychiatric treatment. Patient reporting that she was seen here on the eighth and discharged home, states that she needs inpatient treatment not to be sent home. Exam: Patient mildly agitated but cooperative. Speaking in full and complete sentences. I have greeted and performed a rapid initial assessment of this patient. A comprehensive ED assessment and evaluation of the patient, analysis of test results and completion of the medical decision making process will be conducted by additional ED providers. Dictation of this chart was performed using voice recognition software; therefore, there may be some unintended grammatical errors. TRAVEL OUTSIDE OF THE [place] IN LAST 30 DAYS: No - Related Data Allergies/Adverse Reactions: No Known Allergies Allergy (Verified 03/27/18 11:37) Past Medical History - Past Medical History Cardiac Medical History: Reports: Hx Hypercholesterolemia, Hx Hypertension Endocrine Medical History: Reports: Hx Diabetes Mellitus Type 2 Renal/ Medical History: Denies: Hx Peritoneal Dialysis Psychiatric Medical History: Reports: Hx Bipolar Disorder, Hx Schizophrenia Past Surgical History: Reports: Hx Section Physical Exam - Vital signs Vitals: Temp Pulse Resp BP Pulse Ox 98.6 F 91 18 131/77 H 97 06/27/18 17:08 06/27/18 17:08 06/27/18 17:08 06/27/18 17:08 06/27/18 17:08 Course - Vital Signs Vital signs: Temp Pulse Resp BP Pulse Ox 98.6 F 91 18 131/77 H 97 06/27/18 17:08 06/27/18 17:08 06/27/18 17:08 06/27/18 17:08 06/27/18 17:08
[2018-06-27 18:15] LABS: ABSOLUTE BASOPHILS # (AUTO) 0.1 10^3/uL (0.0-0.2); ABSOLUTE LYMPHOCYTES (AUTO) 2.2 10^3/uL (0.5-4.7); ABSOLUTE MONOCYTES (AUTO) 0.2 10^3/uL (0.1-1.4); ABSOLUTE NEUT (AUTO) 2.3 10^3/uL (1.7-8.2); BASOPHILS % (AUTO) 1.1 % (0-2); EOSINOPHILS % (AUTO) 0.9 % (0-6); HEMATOCRIT 38.6 % (36.0-47.0); HEMOGLOBIN 13.4 g/dL (12.0-15.5); LYMPHOCYTES % (AUTO) 45.1 % (13-45); MEAN CORPUSCULAR HEMOGLOBIN 31.8 pg (27.0-33.4); MEAN CORPUSCULAR HGB CONC 34.7 g/dL (32.0-36.0); MEAN CORPUSCULAR VOLUME 92 fl (80-97); PLATELET COUNT 314 10^3/uL (150-450); RED BLOOD COUNT 4.21 10^6/uL (3.72-5.28); RED CELL DISTRIBUTION WIDTH 13.9 % (11.5-14.0); SEGMENTED NEUTROPHILS % (AUTO) 47.9 % (42-78); TOTAL CELLS COUNTED % (AUTO) 100 %; WHITE BLOOD COUNT 4.8 10^3/uL (4.0-10.5)
[2018-06-27 18:36] LABS: ALANINE AMINOTRANSFERASE 17 U/L (9-52); ALCOHOL 52 mg/dL (NONE DETECTED); ALKALINE PHOSPHATASE 107 U/L (38-126); ANION GAP 11 (5-19); ASPARTATE AMINO TRANSFERASE 17 U/L (14-36); BILIRUBIN,DIRECT 0.2 mg/dL (0.0-0.4); BILIRUBIN,TOTAL 0.5 mg/dL (0.2-1.3); BLOOD UREA NITROGEN 8 mg/dL (7-20); CALCIUM 9.4 mg/dL (8.4-10.2); CARBON DIOXIDE 21 mmol/L (22-30); CHLORIDE 110 mmol/L (98-107); GLUCOSE 80 mg/dL (75-110); POTASSIUM 4.1 mmol/L (3.6-5.0); SODIUM 142.2 mmol/L (137-145); TOTAL PROTEIN 7.7 g/dL (6.3-8.2)
[2018-06-27 18:38] LABS: ACETAMINOPHEN < 10 ug/mL (10-30); SALICYLATE < 1.0 mg/dL (2.0-20.0)
[2018-06-27 18:39] LABS: APPEARANCE,URINE CLEAR; BILIRUBIN,URINE NEGATIVE (NEGATIVE); COLOR,URINE STRAW; GLUCOSE, URINE NEGATIVE (NEGATIVE); KETONES,URINE NEGATIVE (NEGATIVE); LEUKOCYTE ESTERASE,URINE NEGATIVE (NEGATIVE); NITRITE,URINE NEGATIVE (NEGATIVE); PROTEIN,URINE NEGATIVE (NEGATIVE); URINE SPECIFIC GRAVITY 1.004; UROBILINOGEN,URINE NEGATIVE mg/dL (<2.0)
[2018-06-27 18:55] LABS: URINE AMPHETAMINES SCREEN NEGATIVE; URINE BARBITURATES SCREEN NEGATIVE; URINE BENZODIAZEPINES SCREEN NEGATIVE; URINE COCAINE SCREEN NEGATIVE; URINE MARIJUANA (THC) SCREEN NEGATIVE; URINE METHADONE SCREEN NEGATIVE; URINE PHENCYCLIDINE SCREEN NEGATIVE
--- NOTE | 2018-06-27 18:59 | ER Document Report ---
ED General - General Chief Complaint: Suicidal Ideation Stated Complaint: PSCY EVAL Time Seen by Provider: 06/27/18 17:26 Mode of Arrival: Medic Cannot obtain history due to: Mentally challenged Notes: Patient is a 42-year-old female with a past medical history of schizoaffective disorder, off all medications currently, presents feeling suicidal with a plan to cut her wrists. States that she has "demons inside of her" and that they are commanding her to harm herself and others. She states that she is unstable , needs to be hospitalized at [facility]. States she has felt similar in the past and has harmed herself. Patient denies making any attempt to harm herself or others today. She has not contacted her medical providers regarding today's concerns. Nothing improves or worsens her symptoms. TRAVEL OUTSIDE OF THE [place] IN LAST 30 DAYS: No - Related Data Allergies/Adverse Reactions: No Known Allergies Allergy (Verified 03/27/18 11:37) Past Medical History - General Information source: Patient - Social History Smoking Status: Current Every Day Smoker Frequency of alcohol use: None Drug Abuse: None Lives with: Alone Family History: Reviewed & Not Pertinent, Other - Unknown Patient has suicidal ideation: Yes Patient has homicidal ideation: No - Past Medical History Cardiac Medical History: Reports: Hx Hypercholesterolemia, Hx Hypertension Endocrine Medical History: Reports: Hx Diabetes Mellitus Type 2 Renal/ Medical History: Denies: Hx Peritoneal Dialysis Psychiatric Medical History: Reports: Hx Bipolar Disorder, Hx Schizophrenia Past Surgical History: Reports: Hx Section Review of Systems - Review of Systems Notes: Constitutional: Negative for fever. HENT: Negative for sore throat. Eyes: Negative for visual changes. Cardiovascular: Negative for chest pain. Respiratory: Negative for shortness of breath. Gastrointestinal: Negative for abdominal pain, vomiting or diarrhea. Genitourinary: Negative for dysuria. Musculoskeletal: Negative for back pain. Skin: Negative for rash. Neurological: Negative for headaches, weakness or numbness. 10 point ROS negative except as marked above and in HPI. Physical Exam - Vital signs Vitals: Temp Pulse Resp BP Pulse Ox 98.6 F 91 18 131/77 H 97 06/27/18 17:08 06/27/18 17:08 06/27/18 17:08 06/27/18 17:08 06/27/18 17:08 Interpretation: Normal Notes: PHYSICAL EXAMINATION: GENERAL: Well-appearing, well-nourished and in no acute distress. HEAD: Atraumatic, normocephalic. EYES: Pupils equal round and reactive to light, extraocular movements intact, sclera anicteric, conjunctiva are normal. ENT: nares patent, oropharynx clear without exudates. Moist mucous membranes. NECK: Normal range of motion, supple without lymphadenopathy LUNGS: Breath sounds clear to auscultation bilaterally and equal. No wheezes rales or rhonchi. HEART: Regular rate and rhythm without murmurs ABDOMEN: Soft, nontender, normoactive bowel sounds. No guarding, no rebound. No masses appreciated. EXTREMITIES: Normal range of motion, no pitting or edema. No cyanosis. NEUROLOGICAL: No focal neurological deficits. Moves all extremities spontaneously and on command. PSYCH: Appears to be responding to internal stimuli. Noting suicidal ideation. SKIN: Warm, Dry, normal turgor, no rashes or lesions noted. Course - Re-evaluation Re-evalutation: 06/27/18 18:55 Patient presents with complaints of suicidal ideation with a plan to cut her wrists to kill herself. She states that she does not feel safe, feels like risk for harming people in the community, specifically children. She states that she is off of her medications, could not afford the $6 co-pay. She is asking for inpatient hospitalization as she feels psychiatrically stabilized. Right now patient is calm, acting in a normal manner similar to when she has been seen here in the emergency department in the past. She has been given a dose of Thorazine and Cogentin which are her home medications and will remain in the emergency department for evaluation by behavioral health services in the morning. She is otherwise cleared for evaluation and disposition by behavioral health services. - Vital Signs Vital signs: Temp Pulse Resp BP Pulse Ox 98.6 F 91 18 131/77 H 97 06/27/18 17:08 06/27/18 17:08 06/27/18 17:08 06/27/18 17:08 06/27/18 17:08 - Laboratory Result Diagrams: 06/27/18 18:02 06/27/18 18:02 Laboratory results interpreted by me: 06/27/18 06/27/18 18:02 18:02 Lymphocytes % 45.1 H Chloride 110 H Carbon Dioxide 21 L Salicylates < 1.0 L Acetaminophen < 10 L - EKG Interpretation by Me Additional EKG results interpreted by me: 06/27/18 18:55 Sinus rhythm. Rate 73. No ST elevations or depressions. QTC is 419. Discharge - Discharge Clinical Impression: Schizoaffective disorder, bipolar type, Suicidal ideation
[2018-06-27] MEDS ORDERED: CHLORPROMAZINE HCL 50 MG TABLET PO ONE (19:28)
[2018-06-27] MEDS ORDERED: BENZTROPINE MESYLATE 1 MG TABLET PO ONE (19:28)
--- NOTE | 2018-06-28 00:14 | EKG REPORT ---
SEVERITY:- NORMAL ECG - SINUS RHYTHM : Confirmed by: Gustavo Koch 28-Jun-2018 00:13:47
--- NOTE | 2018-06-28 09:57 | ER Document Report ---
Doctor's Note Notes: 06/28/18 09:56 ED psychiatric rounding note 42-year-old female who had some initial suicidal ideation. Patient recants all this now denies any suicidality denied ideation. Patient is working with the social work staff. She denies any visual auditory hallucinations. Patient has done well and will be discharged home. Follow-up is being arranged with [facility].
[2018-06-28 10:35] VITALS: BP 139/84
--- NOTE | 2018-06-28 17:02 | PSYCHOLOGICAL NOTE ---
Psych Note - Psych Note Date seen by psych provider: 06/28/18 Time seen by psych provider: 11:00 Psych Note: Reason for consult: suicidal ideation, hallucinations Pt presents to the ED with complaints suicidal ideation via EMS. EMS reports [place] with complaints of SI by [employer]. Pt states she is unable to obtain her medication and claims she would like to cut herself. Pt arrives to the ED screaming to EMS but was redirectable. Patient states that she is out of her Thorazine and Cogentin medication which totals $6.00. Patient states that she has called it in to the pharmacy but that she does not have any transportation to pick it up. Patient states that she purposely told the ED doctor that that she was going to kill herself so that she could get her prescriptions filled here at the hospital. Patient denies suicide ideation. Patient denies homicidal ideation. Patient is alert and orientated person, place, time and circumstance. Mood is euthymic. Patient's thought processes are overall organized and linear. Patient denies suicidal and homicidal ideation. Eye contact was well maintatined. Intellectual abilities appear to be within the average range. Attention and concentration are fair. Insight, judgment, impulse control are fair. No medication recommendations at this time Diagnosis 295.70 (F25.0) Schizoaffective Disorder, Bipolar Type by history Impression/Plan: Patient is cleared from acute psychiatric services. Patient is not suicidal. Patient is not homicidal. Patient is specifically requesting to have her medication filled and transportation to [facility] her medicine. This Clinician provided patient with a resource list of outpatient providers as well as information on [facility] and the [facility] Department. Dr. Villafana was consulted on the care and management of this patient; attending physician is in agreement with recommendations and disposition.
== END 2018-06-28 10:42 | disposition home or self-care (01) ==
LOC: ER 17:02
DX: F25.0 Schizoaffective disorder, bipolar type (principal); T43.3X6A Underdosing of phenothiazine antipsychotics and neuroleptics, initial encounter; T44.3X6A Underdosing of other parasympatholytics [anticholinergics and antimuscarinics] and spasmolytics, initial encounter; Z91.120 Patient's intentional underdosing of medication regimen due to financial hardship; Z91.14 Patient's other noncompliance with medication regimen; R45.851 Suicidal ideations; F17.200 Nicotine dependence, unspecified, uncomplicated; I10 Essential (primary) hypertension; E11.9 Type 2 diabetes mellitus without complications
CPT/HCPCS: 93005; 99285; 36415; 80307 ×4; 84703; 85025; 80053; 81001; 93010; J3490 ×2

== ENCOUNTER 2018-07-08 13:24 | Emergency (ER) | payer MEDICAID, OTHER ==
[2018-07-08 13:37] VITALS: BP 134/99
--- NOTE | 2018-07-08 13:56 | ER Document Report ---
ED Medical Screen (RME) - General Chief Complaint: Psych Problem Stated Complaint: PSYCH EVAL Time Seen by Provider: 07/08/18 13:47 TRAVEL OUTSIDE OF THE [place] IN LAST 30 DAYS: No - Related Data Allergies/Adverse Reactions: No Known Allergies Allergy (Verified 03/27/18 11:37) Past Medical History - Past Medical History Cardiac Medical History: Reports: Hx Hypercholesterolemia, Hx Hypertension Endocrine Medical History: Reports: Hx Diabetes Mellitus Type 2 Renal/ Medical History: Denies: Hx Peritoneal Dialysis Psychiatric Medical History: Reports: Hx Bipolar Disorder, Hx Schizophrenia Past Surgical History: Reports: Hx Section Physical Exam - Vital signs Vitals: Temp Pulse Resp BP Pulse Ox 97.6 F 88 22 H 134/99 H 97 07/08/18 13:35 07/08/18 13:35 07/08/18 13:35 07/08/18 13:35 07/08/18 13:35 Course - Re-evaluation Re-evalutation: 07/08/18 13:54 This is a 42-year-old female that presents for evaluation of homicidal threats to children. Mobile crisis was dispatched to the scene and subsequently brought her for concern of mental health illness. She states here she wants to be sedated, she wants to be in a facility for all time and does not want to have to sit among the roaches as God watches. She states that "God samuel López keeps cutting me loose after 2 days". We will plan for psychiatric clearance and evaluation. I have seen and performed a rapid medical screening examination on this patient. This patient will require further evaluation and disposition determination by a secondary provider. - Vital Signs Vital signs: Temp Pulse Resp BP Pulse Ox 97.6 F 88 22 H 134/99 H 97 07/08/18 13:35 07/08/18 13:35 07/08/18 13:35 07/08/18 13:35 07/08/18 13:35
[2018-07-08 14:31] LABS: ABSOLUTE LYMPHOCYTES (AUTO) 1.7 10^3/uL (0.5-4.7); ABSOLUTE MONOCYTES (AUTO) 0.4 10^3/uL (0.1-1.4); BASOPHILS % (AUTO) 0.4 % (0-2); EOSINOPHILS % (AUTO) 0.5 % (0-6); HEMATOCRIT 39.5 % (36.0-47.0); HEMOGLOBIN 13.8 g/dL (12.0-15.5); LYMPHOCYTES % (AUTO) 27.9 % (13-45); MEAN CORPUSCULAR HEMOGLOBIN 32.2 pg (27.0-33.4); MEAN CORPUSCULAR HGB CONC 34.9 g/dL (32.0-36.0); MEAN CORPUSCULAR VOLUME 92 fl (80-97); MONOCYTES % (AUTO) 5.8 % (3-13); PLATELET COUNT 292 10^3/uL (150-450); RED BLOOD COUNT 4.29 10^6/uL (3.72-5.28); RED CELL DISTRIBUTION WIDTH 14.1 % (11.5-14.0); SEGMENTED NEUTROPHILS % (AUTO) 65.4 % (42-78); TOTAL CELLS COUNTED % (AUTO) 100 %; WHITE BLOOD COUNT 6.2 10^3/uL (4.0-10.5)
[2018-07-08 14:53] LABS: ALANINE AMINOTRANSFERASE 18 U/L (9-52); ALBUMIN 3.9 g/dL (3.5-5.0); ALKALINE PHOSPHATASE 121 U/L (38-126); ANION GAP 9 (5-19); ASPARTATE AMINO TRANSFERASE 16 U/L (14-36); BILIRUBIN,DIRECT 0.2 mg/dL (0.0-0.4); BILIRUBIN,TOTAL 0.4 mg/dL (0.2-1.3); BLOOD UREA NITROGEN 10 mg/dL (7-20); CALCIUM 9.4 mg/dL (8.4-10.2); CARBON DIOXIDE 27 mmol/L (22-30); CHLORIDE 106 mmol/L (98-107); GLUCOSE 102 mg/dL (75-110); POTASSIUM 3.9 mmol/L (3.6-5.0); SODIUM 142.2 mmol/L (137-145); TOTAL PROTEIN 7.3 g/dL (6.3-8.2)
[2018-07-08 14:55] LABS: ACETAMINOPHEN < 10 ug/mL (10-30); ALCOHOL < 10 mg/dL (NONE DETECTED); SALICYLATE < 1.0 mg/dL (2.0-20.0)
[2018-07-08 15:23] LABS: APPEARANCE,URINE SLIGHTLY-CLOUDY; BILIRUBIN,URINE NEGATIVE (NEGATIVE); COLOR,URINE YELLOW; GLUCOSE, URINE NEGATIVE (NEGATIVE); KETONES,URINE NEGATIVE (NEGATIVE); LEUKOCYTE ESTERASE,URINE SMALL (NEGATIVE); NITRITE,URINE NEGATIVE (NEGATIVE); PROTEIN,URINE NEGATIVE (NEGATIVE); URINE SPECIFIC GRAVITY 1.019
--- NOTE | 2018-07-08 15:35 | ER Document Report ---
ED Psych Disorder / Suicide - General Chief Complaint: Psych Problem Stated Complaint: PSYCH EVAL Time Seen by Provider: 07/08/18 13:47 Notes: Patient is a well-known visitor to our emergency department for mental health assessment and care. Today, she is here and says that she wants to prevent "this lady inside my body from trying to molest children". Throughout my discussions with the patient, she keeps referring to she, the other person who is in her body. She is having both visual and audio hallucinations while on talking to her. Patient says she is taking her Thorazine and Cogentin. TRAVEL OUTSIDE OF THE [place] IN LAST 30 DAYS: No - Related Data Allergies/Adverse Reactions: No Known Allergies Allergy (Verified 03/27/18 11:37) Past Medical History - Social History Smoking Status: Current Every Day Smoker Chew tobacco use (# tins/day): No Frequency of alcohol use: Rare Family History: Reviewed & Not Pertinent, Other - Unknown Patient has suicidal ideation: No Patient has homicidal ideation: Yes - Past Medical History Cardiac Medical History: Reports: Hx Hypercholesterolemia, Hx Hypertension Endocrine Medical History: Reports: Hx Diabetes Mellitus Type 2 Psychiatric Medical History: Reports: Hx Bipolar Disorder, Hx Schizophrenia Past Surgical History: Reports: Hx Section Review of Systems - Review of Systems Notes: REVIEW OF SYSTEMS: CONSTITUTIONAL : Denies fever. EENT: Denies eye, ear, nose or mouth or throat pain or other symptoms. CARDIOVASCULAR: Denies chest pain. RESPIRATORY: Denies cough, chest congestion, or shortness of breath. GASTROINTESTINAL: Denies abdominal pain or nausea, vomiting, or diarrhea. GENITOURINARY: Denies difficulty or painful urinating, urinary frequency, blood in urine. MUSCULOSKELETAL: Denies back or neck pain. Denies joint pain or swelling. SKIN: Denies rash or skin lesions. NEUROLOGICAL: Denies LOC or altered mental status. Denies headache. Denies sensory loss or motor deficits. ALL OTHER SYSTEMS REVIEWED AND NEGATIVE. Physical Exam - Vital signs Vitals: Temp Pulse Resp BP Pulse Ox 97.6 F 88 22 H 134/99 H 97 07/08/18 13:35 07/08/18 13:35 07/08/18 13:35 07/08/18 13:35 07/08/18 13:35 Interpretation: Normal Notes: PHYSICAL EXAMINATION: GENERAL: Well-appearing, in no acute distress. Patient has sheet over her was giggling when I approached to examine her. HEAD: Atraumatic, normocephalic. EYES: Pupils equal round and reactive to light, extraocular movements intact. ENT: oropharynx clear without exudates. Moist mucous membranes. NECK: Normal range of motion, supple. LUNGS: Breath sounds clear and equal bilaterally. HEART: Regular rate and rhythm without murmurs. ABDOMEN: Soft, nontender. No guarding or rebound. No masses. BACK: No tenderness throughout entire back. EXTREMITIES: Normal range of motion without pain. NEUROLOGICAL: Normal speech, normal gait. Normal sensory, motor, and reflex exams. Awake, alert, and oriented x3. Cranial nerves normal. PSYCH: Seems to be turning her head to talk with someone who is not really there. I get the impression that she may actually be pretending to talk to someone. Additionally, patient keeps referring to "she"as the person who has taken over her body and is planning on molesting children. She is very lucid when talking about this person, again almost as if she has control of her thought processes and is pretending to be insane. SKIN: Warm, dry, no rashes. Course - Re-evaluation Re-evalutation: 07/08/18 18:30 Patient was evaluated by mental health who feels it as an outpatient. Lab studies are all normal. Vital signs are normal. Patient appears to be medically stable for transfer or discharge. 07/08/18 18:31 As we were planning to write patient up for discharge, she left the emergency department. She was not exhibiting any behavior that would necessitate us holding her in the emergency department. - Vital Signs Vital signs: Temp Pulse Resp BP Pulse Ox 97.6 F 88 22 H 134/99 H 97 07/08/18 13:35 07/08/18 13:35 07/08/18 13:35 07/08/18 13:35 07/08/18 13:35 - Laboratory Result Diagrams: 07/08/18 14:13 07/08/18 14:13 Laboratory results interpreted by me: 07/08/18 07/08/18 07/08/18 14:13 14:13 14:41 RDW 14.1 H Urine Urobilinogen 2.0 H Ur Leukocyte Esterase SMALL H Salicylates < 1.0 L Acetaminophen < 10 L Discharge - Discharge Clinical Impression: Psychosis Disposition: ELOPED
[2018-07-08 15:38] LABS: URINE AMPHETAMINES SCREEN NEGATIVE; URINE BARBITURATES SCREEN NEGATIVE; URINE BENZODIAZEPINES SCREEN NEGATIVE; URINE MARIJUANA (THC) SCREEN NEGATIVE; URINE METHADONE SCREEN NEGATIVE; URINE PHENCYCLIDINE SCREEN NEGATIVE
[2018-07-08] MEDS ORDERED: ACETAMINOPHEN 325 MG TABLET PO ONE (15:58)
[2018-07-08 15:59] LABS: URINE COCAINE SCREEN NEGATIVE
[2018-07-08] MEDS ORDERED: BENZTROPINE MESYLATE 1 MG TABLET PO ONE (17:16)
[2018-07-08] MEDS ORDERED: CHLORPROMAZINE HCL 50 MG TABLET PO ONE (17:16)
--- NOTE | 2018-07-08 17:24 | PSYCHOLOGICAL NOTE ---
Psych Note - Psych Note Date seen by psych provider: 07/08/18 Time seen by psych provider: 13:20 - [facility] provided information at 1320. Obtained collateral from [facility] at 1429. Observed patient while ED Physician evaluated and again just before she left AMA Psych Note: Reason for Consult: Off medications, History Schizophrenia/Schizoaffective, Psychosis Contact Permissions: Eric Ayala from [facility] and Juan Pablo from [facility] provided collateral and were involved with patient Patient is a 42 y ear old female who presented to the ED today via [facility] and [facility] for off medications, history Schizophrenia/ Schizoaffective and psychosis (talking to Hi/Wyatt). Patient was in a hallway bed. Observed her interaction with ED Physician. She was calm, cooperative and appropriate. Observed her wake up after eating and napping. She got off the stretcher, was looking for something around her bed, inquired where her shoes were, was informed, she said "oh someone could steal them," then went to the restroom, came back and sat down on bed and asked to speak with doctor. She was reminded the doctor had spoke with her when she first came in, she collected her things and sat on the bed longer. Suddenly she got up and walked off in a regular fashion, not running or making any kind of scene. The decision from the behavioral health team had been to provide scripts for medications, remind patient to follow up with current outpatient provider [facility] and the importance of doing so and discharge. She was not an IVC and was not considered an immediate danger to self or others given her calm demeanor and how cooperative she had been with medical staff (uncommon for patient when she is not stabilized or at baseline, she is usually yelling/hollering/demanding and will act out her psychosis). Patient was oriented to self, person and place. She was aware of her surrounding (her belongings, where the restroom was, how to leave out the main doors of the ED). She never mentioned SI/HI. If she was having psychosis and responding to internal stimuli it did not interfere with her ability to express needs/wants (saying she needed to use the restroom, being mindful of her belongings and surroundings) and her ability to interact appropriately ( evaluation with ED Physician). [facility] worker reported patient had been off her medications for 2 weeks and was having full blown schizophrenia episode where she was talking to the Devil. When informed patient is never as calm as she was presenting he said while in triage she said "I want this to stop, I'm tired" so he told her to quit walking out of the hospital because every time she does it starts the process all over again. He identified while in the ambulance she put her wig on for him (in the past will throw it at people). He reported she said she did not want to come to [facility] because they would discharge her. He said she identified "I know I need to be here in hospital I am a danger to society." He stated she mentioned she had been hospitalized in [place]. He identified she came voluntarily. He reported she had maybe 4-6 pills left in each of her medication bottles. Patient is well known to this ED and the [facility] Behavioral Health team. Chart review revealed patient had been seen on 06/20/18 and was administered Haldol Deconoate 100MG once. She was seen again on 06/28/18 and provided scripts for Thorazine 50MG BID and Cogentin 1MG QD. This is her 9th visit this year (2018) since October related to mental health. She does not follow up with outpatient services. In 2017 she had 4 visits related to Mental Health. Coordinated with [facility] (Eric Ayala) and [facility] after hours ( [place]) via telephone informing them patient left AMA, that she was not stopped since she was going to be discharged, however that she would have gotten scripts for medications but since she left AMA she did not receive those. Diagnosis: 295.70 (F25.0) Schizoaffective Disorder, Bipolar Type by history Medication recommendations made by the psychiatric medical provider, Dr. Jacquie MD., includes: Provide scripts for Thorazine 50MG twice a day for psychosis Cogentin 1MG daily to curb tremor side effects often associated with antipsychotic medications Impression/Plan: Patient left AMA. She was cleared from acute psychiatric services and recommendation was to provide scripts and encourage her to follow up with outpatient provider [facility]. Patient did not make any statement or gestures regarding SI/HI and if she was experiencing psychosis it did not seem to interfere with her ability to appropriate interact with people ([facility], [facility] Physician) or express needs/wants (said she needed to use restroom and went), as well as be aware of surrounding (making sure she had her belonging close to her). She was calm and cooperative and in times when patient has been in active psychosis she has been yelling/hollering, often acting out psychosis. She is well known to the ED and behavioral health team. She is noncompliant with outpatient follow up. Consulted with Dr. Villafana regarding the management and care of patient. ED Physician made aware of recommendations and that patient left AMA. [facility] and [facility] notified of patient leaving AMA and what plan of care would have been.
--- NOTE | 2018-07-08 18:29 | EKG REPORT ---
SEVERITY:- ABNORMAL ECG - SINUS RHYTHM NONSPECIFIC ST-T CHANGES- INFERIOR - LATERAL LEADS : Confirmed by: Felipe Thompson MD 08-Jul-2018 18:28:30
== END 2018-07-08 17:28 | disposition left against medical advice (07) ==
LOC: ER 13:24
DX: F25.0 Schizoaffective disorder, bipolar type (principal); R45.850 Homicidal ideations; E78.00 Pure hypercholesterolemia, unspecified; I10 Essential (primary) hypertension
CPT/HCPCS: 36415; 80053; 80307; 81001; 84703; 85025; 93005; 93010; 99281

== ENCOUNTER 2018-07-20 15:03 | Emergency (ER) | payer MEDICAID, OTHER ==
[2018-07-20 15:44] VITALS: BP 120/75
--- NOTE | 2018-07-20 16:18 | ER Document Report ---
ED General - General Chief Complaint: Medication Refill Stated Complaint: IVC Time Seen by Provider: 07/20/18 15:13 Mode of Arrival: Ambulatory Information source: Patient Notes: This is a 42-year-old female with a history of schizoaffective disorder, bipolar type who is well-known to the emergency room and has had a recent visit. She is on a medicine regimen and she has referral to [facility]. The patient presents to the emergency room via EMS. The patient states she is unable to follow-up with the psychiatry clinic because she does not have a car or the means to get there. Additionally, she does not like the way her medicines " make her feel" and so she is opted not to take them for the past week. She has a long history of depression. He is she denies suicidal or homicidal shins at the time now. She denies any hallucinations or delusions. She appears quite lucid at this time. She is adamant that she wants her medicines changed but she is not willing to go to outpatient follow-up. TRAVEL OUTSIDE OF THE [place] IN LAST 30 DAYS: No - HPI Onset: Last week Onset/Duration: Gradual Quality of pain: No pain Severity: None Pain Level: Denies Associated symptoms: denies: Chest pain, Fever, Shortness of breath Exacerbated by: Denies Relieved by: Denies Similar symptoms previously: Yes Recently seen / treated by doctor: Yes - Related Data Allergies/Adverse Reactions: No Known Allergies Allergy (Verified 07/20/18 15:26) Past Medical History - General Information source: Patient - Social History Smoking Status: Current Every Day Smoker Cigarette use (# per day): Yes - 1 pack/day Chew tobacco use (# tins/day): No Frequency of alcohol use: Occasional Drug Abuse: None Lives with: Family Family History: Reviewed & Not Pertinent, Other - Unknown Patient has suicidal ideation: Yes Patient has homicidal ideation: No - Past Medical History Cardiac Medical History: Reports: Hx Hypercholesterolemia, Hx Hypertension Endocrine Medical History: Reports: Hx Diabetes Mellitus Type 2 Renal/ Medical History: Denies: Hx Peritoneal Dialysis Psychiatric Medical History: Reports: Hx Bipolar Disorder, Hx Depression, Hx Schizophrenia Past Surgical History: Reports: Hx Section Review of Systems - Review of Systems Constitutional: denies: Chills, Fever EENT: No symptoms reported Cardiovascular: No symptoms reported Respiratory: No symptoms reported Gastrointestinal: No symptoms reported Genitourinary: No symptoms reported Female Genitourinary: No symptoms reported Musculoskeletal: No symptoms reported Skin: No symptoms reported Hematologic/Lymphatic: No symptoms reported Neurological/Psychological: See HPI Physical Exam - Vital signs Vitals: Temp Pulse Resp BP Pulse Ox 98.8 F 75 16 120/75 98 07/20/18 15:26 07/20/18 15:26 07/20/18 15:26 07/20/18 15:26 07/20/18 15:26 Notes: Physical exam: GENERAL: Patient is alert and oriented x3, she denies suicidal ideations or homicidal hallucinations or delusions. She would like to go into a permanent care facility. She would like to have her medicines changed. HEAD: Atraumatic, normocephalic. EYES: Pupils equal round and reactive to light, extraocular movements intact, sclera anicteric, conjunctiva are normal. ENT: TMs normal, nares patent, oropharynx clear without exudates. Moist mucous membranes. NECK: Normal range of motion, supple without obvious mass or JVD. LUNGS: Breath sounds clear to auscultation bilaterally and equal. No wheezes rales or rhonchi. HEART: Regular rate and rhythm without murmurs, rubs or gallops. ABDOMEN: Soft, normoactive bowel sounds. No tenderness to palpation. No guarding, no rebound. No masses appreciated. EXTREMITIES: Normal range of motion, no pitting or edema. No clubbing or cyanosis. NEUROLOGICAL: Cranial nerves II through XII grossly intact. Normal speech, moving all extremities. PSYCH: As mentioned above: No suicidal or homicidal, no obvious hallucinations or delusions. SKIN: Warm, Dry, normal turgor, no rashes or lesions noted. Course - Re-evaluation Re-evalutation: 07/20/18 16:19 Patient consulted with Avila of the psychology team. I discussed plan. Patient is much better than she has been in the past. She does not meet criteria for an involuntary commitment. We have stressed that we think the medicines are working and that she should continue to take them. It is important that she follow-up with the psychology clinic and we have reinforced that as well. - Vital Signs Vital signs: Temp Pulse Resp BP Pulse Ox 98.8 F 75 16 120/75 98 07/20/18 15:26 07/20/18 15:26 07/20/18 15:26 07/20/18 15:26 07/20/18 15:26 Discharge - Discharge Clinical Impression: Schizoaffective disorder, bipolar type Condition: Stable Disposition: HOME, SELF-CARE Additional Instructions: You did have a consult with psychiatry team. They recommend that you continue to take the medicines that you are taking: Because they are working. We recommend you follow-up at [facility].
--- NOTE | 2018-07-20 16:59 | PSYCHOLOGICAL NOTE ---
Psych Note - Psych Note Date seen by psych provider: 07/20/18 Time seen by psych provider: 15:39 - phone consult Psych Note: Reason for Consult: Medication recommendations Pt to ED via EMS, voluntarily for psych eval for medication. Pt states she has not taken meds(cogentin, thorazine) x 1 week d/t they make her feel "funny". Pt a/ox4, states she has SI, but has had thoughts like this since she was 25yo, states they have not changed, denies any intent or plan for suicide. Patient reports she is suicidal and needs to go to tie binder inpatient psychiatric treatment. She states she is tired of calling 911 to be brought to [facility] only to get discharged. She continued to report that she did not have these problems in [place]. When it was stated that the clinician did not know the patient was from [place], the patient stated she is from [place] but moved to [place] and lived there for about 10 to 15 years. Patient states her family lives in [place] and then provided the name Ailin rollins as a family member and provided her number; [phone]. She reports again that she needs skilled nursing placement. Clinician explained that tie binder placement in an inpatient psychiatric treatment is no longer available since services are provided by outpatient providers once a patient is stabilized. Patient states she has thoughts of killing herself. When asked if she has a plan she reports the voices tell her to slit her throat. When asked what stopped her from cutting herself she reports she called 911. Patient states she has not gone to her outpatient mental health provider, [facility]], because she has not been able to get medicaid transportation to assist with transport. She continued to reports that her social work job titles, Mildred Olvera, has not helped her either. She reports Ms Olvera is her assigned economic "food stamps worker. " When asked about her medications, she reports she has not taken her medication because it makes her sick. Patient is alert and orientated person, place, time and circumstance. Mood is irritable. Patient reports passive suicidal ideation ie no plans means or intent. Thought processes are orangized and linear with thought content focuses on going inpatient psychiatric treatment. She denies homicidal ideation. Intellectual abilities appear to be within the average range. Attention and concentration are good. Insight, judgment, impulse control are fair. No medication recommendations at this time Diagnosis 295.70 (F25.0) Schizoaffective Disorder, Bipolar Type by history Impression/Plan: Patient is cleared from acute psychiatric services. This patient is well-known to this clinician and department. Patient reports both visual and auditory hallucination; however, thought processes are organized and linear. Thought content appears to be focused on secondary gain of going to a skilled nursing inpatient psychiatric treatment. Patient clearly spoke with clinician on the phone with no difficulties even discussing family, contact information and assigned DSS onsite case manager. While her communication speech communicated her irritability, she had no difficulties communicating her thoughts and wants. This Clinician has provided the patient with a resource list of outpatient providers as well as information on [facility], medicaid transportation and the [facility] Department on multiple previous visits. She is noncomplaint with outpatient mental health and therapeutic services. She is recommended to follow through [facility] for any medication changes. Dr. Villafana was consulted on the care and management of this patient; attending physician is in agreement with recommendations and disposition.
== END 2018-07-20 17:24 | disposition home or self-care (01) ==
LOC: ER 15:03
DX: F25.0 Schizoaffective disorder, bipolar type (principal); F17.210 Nicotine dependence, cigarettes, uncomplicated; I10 Essential (primary) hypertension; E11.9 Type 2 diabetes mellitus without complications
CPT/HCPCS: 99284

== ENCOUNTER 2019-01-29 13:42 | Emergency (ER) | payer MEDICAID, OTHER ==
--- NOTE | 2019-01-29 14:14 | ER Document Report ---
ED Medical Screen (RME) - General Chief Complaint: Psych Problem Stated Complaint: SUICIDAL IDEATIONS Time Seen by Provider: 01/29/19 14:10 Mode of Arrival: Ambulatory Notes: Patient presents to the emergency department with mobile crisis. Reports that she is going to cut herself and kill small children. Patient does have psych history. I have greeted and performed a rapid initial assessment of this patient. A comprehensive ED assessment and evaluation of the patient, analysis of test results and completion of the medical decision making process will be conducted by additional ED providers. Dictation of this chart was performed using voice recognition software; therefore, there may be some unintended grammatical errors. TRAVEL OUTSIDE OF THE [place] IN LAST 30 DAYS: No - Related Data Allergies/Adverse Reactions: No Known Allergies Allergy (Verified 01/29/19 13:52) Past Medical History - Past Medical History Cardiac Medical History: Reports: Hx Hypercholesterolemia, Hx Hypertension Endocrine Medical History: Reports: Hx Diabetes Mellitus Type 2 Renal/ Medical History: Denies: Hx Peritoneal Dialysis Psychiatric Medical History: Reports: Hx Bipolar Disorder, Hx Depression, Hx Schizophrenia Past Surgical History: Reports: Hx Section Physical Exam - Vital signs Vitals: Temp Pulse Resp BP Pulse Ox 98.8 F 116 H 18 132/71 H 98 01/29/19 13:55 01/29/19 13:55 01/29/19 13:55 01/29/19 13:55 01/29/19 13:55 Course - Vital Signs Vital signs: Temp Pulse Resp BP Pulse Ox 98.8 F 116 H 18 132/71 H 98 01/29/19 13:55 01/29/19 13:55 01/29/19 13:55 01/29/19 13:55 01/29/19 13:55
[2019-01-29 14:31] LABS: HEMATOCRIT 40.6 % (36.0-47.0); MEAN CORPUSCULAR HEMOGLOBIN 31.1 pg (27.0-33.4); MEAN CORPUSCULAR HGB CONC 34.5 g/dL (32.0-36.0); MEAN CORPUSCULAR VOLUME 90 fl (80-97); PLATELET COUNT 308 10^3/uL (150-450); RED CELL DISTRIBUTION WIDTH 13.5 % (11.5-14.0); WHITE BLOOD COUNT 6.1 10^3/uL (4.0-10.5)
[2019-01-29 14:49] LABS: APPEARANCE,URINE CLEAR; BILIRUBIN,URINE NEGATIVE (NEGATIVE); COLOR,URINE YELLOW; GLUCOSE, URINE >=500 mg/dL (NEGATIVE); KETONES,URINE NEGATIVE (NEGATIVE); LEUKOCYTE ESTERASE,URINE NEGATIVE (NEGATIVE); NITRITE,URINE NEGATIVE (NEGATIVE); PROTEIN,URINE NEGATIVE (NEGATIVE); URINE SPECIFIC GRAVITY 1.008; UROBILINOGEN,URINE NEGATIVE mg/dL (<2.0)
[2019-01-29 14:58] LABS: ALANINE AMINOTRANSFERASE 12 U/L (9-52); ALBUMIN 3.9 g/dL (3.5-5.0); ALKALINE PHOSPHATASE 128 U/L (38-126); ANION GAP 9 (5-19); ASPARTATE AMINO TRANSFERASE 13 U/L (14-36); BILIRUBIN,DIRECT 0.2 mg/dL (0.0-0.4); BILIRUBIN,TOTAL 0.4 mg/dL (0.2-1.3); BLOOD UREA NITROGEN 9 mg/dL (7-20); CALCIUM 9.7 mg/dL (8.4-10.2); CARBON DIOXIDE 25 mmol/L (22-30); CHLORIDE 107 mmol/L (98-107); GLUCOSE 104 mg/dL (75-110); POTASSIUM 4.5 mmol/L (3.6-5.0); SODIUM 140.8 mmol/L (137-145); TOTAL PROTEIN 7.4 g/dL (6.3-8.2); URINE AMPHETAMINES SCREEN NEGATIVE; URINE BARBITURATES SCREEN NEGATIVE; URINE BENZODIAZEPINES SCREEN NEGATIVE; URINE COCAINE SCREEN NEGATIVE; URINE MARIJUANA (THC) SCREEN NEGATIVE; URINE METHADONE SCREEN NEGATIVE; URINE PHENCYCLIDINE SCREEN NEGATIVE
[2019-01-29 14:59] LABS: ACETAMINOPHEN < 10 ug/mL (10-30); ALCOHOL < 10 mg/dL (NONE DETECTED); SALICYLATE < 1.0 mg/dL (2.0-20.0)
[2019-01-29 15:03] LABS: ABSOLUTE LYMPHOCYTES# (MANUAL) 3.3 10^3/uL (0.5-4.7); ABSOLUTE MONOCYTES # (MANUAL) 0.2 10^3/uL (0.1-1.4); BASOPHILS % (MANUAL) 0 % (0-2); EOSINOPHILS % (MANUAL) 1 % (0-6); LYMPHOCYTES % (MANUAL) 54 % (13-45); MONOCYTES % (MANUAL) 3 % (3-13); SEGMENTED NEUTROPHILS % (MAN) 42 % (42-78); TOTAL CELLS COUNTED 100
[2019-01-29 15:05] LABS: RBC MORPHOLOGY COMMENT NORMO-CYTIC/CHROMIC
[2019-01-29 15:06] LABS: PLATELET COMMENT ADEQUATE; PLATELET GIANT PRESENT
--- NOTE | 2019-01-29 15:07 | ER Document Report ---
ED Psych Disorder / Suicide - General Mode of Arrival: Ambulatory TRAVEL OUTSIDE OF THE [place] IN LAST 30 DAYS: No <MK HART - Last Filed: 01/29/19 19:38> <RIZVIYVONNE - Last Filed: 01/30/19 10:03> - General Chief Complaint: Psych Problem Stated Complaint: SUICIDAL IDEATIONS Time Seen by Provider: 01/29/19 14:10 Primary Care Provider: SEVERIANO MC MD [Primary Care Provider] - Follow up as needed Notes: Patient is here for evaluation of suicidal ideation. Says she is thinking about cutting herself and killing kids. Patient presents to the emergency department with mobile crisis. Patient has a history of psychiatric illnesses and is been in this emergency department many times in the past. (MK HART) - Related Data Allergies/Adverse Reactions: No Known Allergies Allergy (Verified 01/29/19 13:52) Past Medical History - Social History Smoking Status: Unknown if Ever Smoked Family History: Reviewed & Not Pertinent, Other - Unknown Patient has suicidal ideation: Yes Patient has homicidal ideation: Yes - Past Medical History Cardiac Medical History: Reports: Hx Hypercholesterolemia, Hx Hypertension Endocrine Medical History: Reports: Hx Diabetes Mellitus Type 2 Psychiatric Medical History: Reports: Hx Bipolar Disorder, Hx Depression, Hx Schizophrenia Past Surgical History: Reports: Hx Section <MK HART - Last Filed: 01/29/19 19:38> Review of Systems <MK HART - Last Filed: 01/29/19 19:38> - Review of Systems Notes: CONSTITUTIONAL : Denies fever. CARDIOVASCULAR: Denies chest pain. RESPIRATORY: Denies cough, chest congestion, or shortness of breath. GASTROINTESTINAL: Denies abdominal pain or nausea, vomiting, or diarrhea. GENITOURINARY: Denies difficulty or painful urinating, urinary frequency, blood in urine. (MK HART) Physical Exam - Vital signs Interpretation: Normal, Tachycardic - Minor <MK HART - Last Filed: 01/29/19 19:38> - Vital signs Vitals: Temp Pulse Resp BP Pulse Ox 98.8 F 116 H 18 132/71 H 98 01/29/19 13:55 01/29/19 13:55 01/29/19 13:55 01/29/19 13:55 01/29/19 13:55 Notes: PHYSICAL EXAMINATION: GENERAL: Well-appearing, no acute distress. Very talkative. HEAD: Atraumatic, normocephalic. NECK: Normal range of motion, supple. LUNGS: Breath sounds clear and equal bilaterally. HEART: Regular rate and rhythm without murmurs heard. ABDOMEN: Soft, nontender. No guarding or rebound or masses felt. (MK HART) Course - Laboratory Result Diagrams: 01/29/19 14:19 01/29/19 14:19 - EKG Interpretation by Mi EKG shows normal: Sinus rhythm Rate: Normal Rhythm: NSR - Rate of 100/min. <MK HART - Last Filed: 01/29/19 19:38> - Laboratory Result Diagrams: 01/29/19 14:19 01/29/19 14:19 <YVONNE RIZVI - Last Filed: 01/30/19 10:03> - Re-evaluation Re-evalutation: 01/29/19 19:36 Patient has been evaluated by mental health. She is going to get an injection of Haldol Decanoate 100 mg and stay the night and hopefully be able to be discharged in the morning. (MK HART) - Vital Signs Vital signs: Temp Pulse Resp BP Pulse Ox 98.0 F 82 20 110/69 98 01/30/19 06:51 01/30/19 06:51 01/30/19 06:51 01/30/19 06:51 01/30/19 06:51 - Laboratory Laboratory results interpreted by id: 01/29/19 01/29/19 01/29/19 14:19 14:19 14:19 Lymphocytes % (Manual) 54 H AST 13 L Alkaline Phosphatase 128 H Urine Glucose (UA) >=500 H Salicylates < 1.0 L Acetaminophen < 10 L Discharge <MK HART - Last Filed: 01/29/19 19:38> <YVONNE RIZVI - Last Filed: 01/30/19 10:03> - Discharge Clinical Impression: Schizoaffective disorder Qualifiers: Schizoaffective disorder type: bipolar Qualified Code(s): F25.0 - Schizoaffective disorder, bipolar type Condition: Stable Disposition: HOME, SELF-CARE Additional Instructions: You have been evaluated by both medical and behavioral health teams have been deemed appropriate for discharge. You have received a Haldol Decanoate shot on 01/29/2019. Please follow-up with your outpatient mental health provider in 3 to 5 days for continued outpatient mental health services. AT ANY TIME, IF YOUR SYMPTOMS CHANGE SIGNIFICANTLY OR WORSEN OR YOU DEVELOP NEW SYMPTOMS, RETURN TO THE EMERGENCY DEPARTMENT IMMEDIATELY FOR RE-EVALUATION. Referrals: SEVERIANO MC MD [Primary Care Provider] - Follow up as needed [facility] [Outside] - Follow up as needed
--- NOTE | 2019-01-29 17:37 | PSYCHOLOGICAL NOTE ---
Psych Note - Psych Note Psych Note: Patient is alert and orientated person, place, time and circumstance. Mood is euthymic with congruent affect. Patient reports passive homicidal and suicidal ideation ie no plans means or intent. Thought processes are organized and linear with thought content focuses on going inpatient psychiatric treatment. She denies homicidal ideation. Intellectual abilities appear to be within the average range. Attention and concentration are good. Insight, judgment, impulse control are fair. Diagnosis 295.70 (F25.0) Schizoaffective Disorder, Bipolar Type by history Medication recommendations per [facility]'s contracted psychiatrist Dr. Jacquie CALLE are as follows Haldol decanoate 100 mg once Impression/Plan: Patient is cleared from acute psychiatric services. This patient is well-known to this clinician and department. Patient reports both visual and auditory hallucination; however, thought processes are organized and linear. Thought content appears to be focused on secondary gain of going to a long term care social worker inpatient psychiatric treatment. Patient clearly spoke with clinician on the phone with no difficulties even discussing family, contact information and assigned DSS shelter case manager. While her communication speech communicated her irritability, she had no difficulties communicating her thoughts and wants. This Clinician has provided the patient with a resource list of outpatient providers as well as information on [facility], medicaid transportation and the [facility] on multiple previous visits. She is noncomplaint with outpatient mental health and therapeutic services. She is recommended to follow through with seeing her outpatient provider, [facility], for any medication changes. Dr. Villafana was consulted on the care and management of this patient; attending physician is in agreement with recommendations and disposition. Impression\plan: Patient is recommended for overnight mental health observation. Medication recommendations have been provided. Patient be reevaluated. Dr. Villafana was consulted to care management this patient; attending physicians in agreement with recommendations and disposition.
[2019-01-29] MEDS ORDERED: HALOPERIDOL DECANOATE INJ 100 MG/1 ML VIAL IM SCH (18:00)
[2019-01-29] MEDS: BENZTROPINE MESYLATE 1 MG TABLET PO SCH (18:12)
[2019-01-29] MEDS: CHLORPROMAZINE HCL 50 MG TABLET PO SCH (18:12)
--- NOTE | 2019-01-29 19:34 | EKG REPORT ---
SEVERITY:- OTHERWISE NORMAL ECG - SINUS TACHYCARDIA : Confirmed by: Edel Vargas MD 29-Jan-2019 19:33:56
--- NOTE | 2019-01-30 09:26 | ER Document Report ---
Doctor's Note Notes: HPI;Patient is here for evaluation of suicidal ideation. Says she is thinking about cutting herself and killing kids. Patient presents to the emergency department with mobile crisis. Patient has a history of psychiatric illnesses and is been in this emergency department many times in the past. 01/30/19 09:26 Behavioral health plan; medication recommendations per [facility]'s contracted psychiatrist Dr. Jacquie CALLE are as follows Haldol decanoate 100 mg once Impression\plan: Patient is recommended for overnight mental health observation. Medication recommendations have been provided. Patient be reevaluated. Dr. Villafana was consulted to care management this patient; attending physicians in agreement with recommendations and disposition. 01/30/19 09:27 As the rounding physician this AM, I assessed the patient's labs, vitals, and records. No concerning findings this morning. Patient denies any acute complaints. Patient is cleared for disposition by behavioral health. 01/30/19 17:25 Patient discharged home in stable condition
[2019-01-30] MEDS ORDERED: NICOTINE 14 MG/24 HR PATCH.TD24 TD ONE (10:08)
[2019-01-30] MEDS: CHLORPROMAZINE HCL 50 MG TABLET PO SCH (11:25)
[2019-01-30] MEDS: BENZTROPINE MESYLATE 1 MG TABLET PO SCH (11:26)
[2019-01-30 13:58] VITALS: BP 146/91
== END 2019-01-30 13:59 | disposition home or self-care (01) ==
LOC: ER 13:42
DX: F25.0 Schizoaffective disorder, bipolar type (principal); R45.851 Suicidal ideations; R45.850 Homicidal ideations; I10 Essential (primary) hypertension; E11.9 Type 2 diabetes mellitus without complications
CPT/HCPCS: 93005; 99285; 36415; 80307 ×4; 84703; 85025; 80053; 81001; 93010; J3490 ×5

== ENCOUNTER 2019-07-15 11:38 | Emergency (ER) | payer MEDICAID, OTHER ==
--- NOTE | 2019-07-15 11:44 | ER Document Report ---
ED Medical Screen (RME) - General Stated Complaint: PSYCH Time Seen by Provider: 07/15/19 11:42 Primary Care Provider: SEVERIANO MC MD [Primary Care Provider] - Follow up as needed Mode of Arrival: Ambulatory Information source: Law Enforcement Notes: This 43-year-old female with history of schizophrenia presents emergency department via [employer] for altered mental status. I have greeted and performed a rapid initial assessment of this patient. A comprehensive ED assessment and evaluation of the patient, analysis of test results and completion of the medical decision making process will be conducted by additional ED providers. Dictation of this chart was performed using voice recognition software; therefore, there may be some unintended grammatical errors. TRAVEL OUTSIDE OF THE [place] IN LAST 30 DAYS: No - Related Data Allergies/Adverse Reactions: No Known Allergies Allergy (Verified 01/29/19 13:52) Past Medical History - Past Medical History Cardiac Medical History: Reports: Hx Hypercholesterolemia, Hx Hypertension Endocrine Medical History: Reports: Hx Diabetes Mellitus Type 2 Renal/ Medical History: Denies: Hx Peritoneal Dialysis Psychiatric Medical History: Reports: Hx Bipolar Disorder, Hx Depression, Hx Schizophrenia Past Surgical History: Reports: Hx Section Doctor's Discharge - Discharge Referrals: SEVERIANO MC MD [Primary Care Provider] - Follow up as needed
--- NOTE | 2019-07-15 12:45 | PSYCHOLOGICAL NOTE ---
Psych Note - Psych Note Date seen by psych provider: 07/15/19 Time seen by psych provider: 11:42 Psych Note: Reason for Consult: IVC Patient presents to [facility] ED agitated and paranoid. Patient was found laying in the road by law enforcement and asked them to shoot her in the head. Patient is actively responding to internal stimuli stating she is Allan and then will slumped down and continue engaging stating that she is Lucifer. She is unable to engage in organized and linear conversation. Medication recommendations per [facility]'s contracted psychiatrist Dr. Jacquie CALLE are as follows: 1. Haldol 5 mg twice a day 2. Cogentin 1 mg twice per day 3. Thorazine 100mg every 6 hours as needed Diagnosis: 295.70 (F25.0) Schizoaffective Disorder, Bipolar Type by history Impression/Plan: Patient is recommended to continue IVC. Patient is currently in acute psychosis. She is actively responding to internal stimuli which includes both hallucinations and delusions. Patient was noted to make suicidal comments to law enforcement asking them to shoot her in a head and was found laying in a road. Patient has a long history of mental health and noncompliance on medications. Medication recommend patient have been provided. patient be reevaluated. Dr. Villafana was consulted to care management of this patient; attending physicians in agreement with recommendations and disposition.
[2019-07-15 12:48] LABS: ABSOLUTE BASOPHILS # (AUTO) 0.1 10^3/uL (0.0-0.2); ABSOLUTE LYMPHOCYTES (AUTO) 1.9 10^3/uL (0.5-4.7); ABSOLUTE MONOCYTES (AUTO) 0.3 10^3/uL (0.1-1.4); BASOPHILS % (AUTO) 1.1 % (0-2); EOSINOPHILS % (AUTO) 0.6 % (0-6); HEMATOCRIT 41.6 % (36.0-47.0); HEMOGLOBIN 14.2 g/dL (12.0-15.5); LYMPHOCYTES % (AUTO) 35.9 % (13-45); MEAN CORPUSCULAR HGB CONC 34.1 g/dL (32.0-36.0); MEAN CORPUSCULAR VOLUME 91 fl (80-97); MONOCYTES % (AUTO) 5.3 % (3-13); PLATELET COUNT 289 10^3/uL (150-450); RED BLOOD COUNT 4.57 10^6/uL (3.72-5.28); RED CELL DISTRIBUTION WIDTH 13.9 % (11.5-14.0); SEGMENTED NEUTROPHILS % (AUTO) 57.1 % (42-78); TOTAL CELLS COUNTED % (AUTO) 100 %; WHITE BLOOD COUNT 5.2 10^3/uL (4.0-10.5)
[2019-07-15 13:05] LABS: ALBUMIN 4.2 g/dL (3.5-5.0); ALKALINE PHOSPHATASE 125 U/L (38-126); ANION GAP 8 (5-19); ASPARTATE AMINO TRANSFERASE 19 U/L (14-36); BILIRUBIN,DIRECT 0.1 mg/dL (0.0-0.4); BILIRUBIN,TOTAL 0.5 mg/dL (0.2-1.3); BLOOD UREA NITROGEN 11 mg/dL (7-20); CALCIUM 9.5 mg/dL (8.4-10.2); CARBON DIOXIDE 26 mmol/L (22-30); CHLORIDE 108 mmol/L (98-107); GLUCOSE 99 mg/dL (75-110); POTASSIUM 3.9 mmol/L (3.6-5.0); TOTAL PROTEIN 8.2 g/dL (6.3-8.2)
[2019-07-15 13:07] LABS: ACETAMINOPHEN < 10 ug/mL (10-30); ALCOHOL < 10 mg/dL (NONE DETECTED)
[2019-07-15 13:08] LABS: SALICYLATE < 1.0 mg/dL (2.0-20.0)
[2019-07-15 13:19] LABS: APPEARANCE,URINE CLOUDY; BILIRUBIN,URINE NEGATIVE (NEGATIVE); COLOR,URINE YELLOW; GLUCOSE, URINE 50 mg/dL (NEGATIVE); KETONES,URINE NEGATIVE (NEGATIVE); LEUKOCYTE ESTERASE,URINE NEGATIVE (NEGATIVE); NITRITE,URINE NEGATIVE (NEGATIVE); PROTEIN,URINE NEGATIVE (NEGATIVE); URINE SPECIFIC GRAVITY 1.013; UROBILINOGEN,URINE NEGATIVE mg/dL (<2.0)
[2019-07-15 13:25] LABS: URINE AMPHETAMINES SCREEN NEGATIVE; URINE BARBITURATES SCREEN NEGATIVE; URINE BENZODIAZEPINES SCREEN NEGATIVE; URINE COCAINE SCREEN NEGATIVE; URINE MARIJUANA (THC) SCREEN NEGATIVE; URINE METHADONE SCREEN NEGATIVE; URINE PHENCYCLIDINE SCREEN NEGATIVE
[2019-07-15] MEDS: HALOPERIDOL LACTATE INJ 5 MG/1 ML VIAL IM SCH ×2 (14:22→18:37)
[2019-07-15] MEDS: BENZTROPINE MESYLATE INJ 2 MG/2 ML AMPULE IM SCH ×2 (14:22→18:37)
[2019-07-15] MEDS: CHLORPROMAZINE HCL INJ 25 MG/1 ML AMPULE IM PRN (14:22)
--- NOTE | 2019-07-15 14:58 | ER Document Report ---
Entered by RENEE BOWEN SCRIBE 07/15/19 1354 Acting as scribe for:DONNIE KRUSE MD ED Psych Disorder / Suicide - General Chief Complaint: Psych Problem Stated Complaint: PSYCH Time Seen by Provider: 07/15/19 11:42 Primary Care Provider: SEVERIANO MC MD [NO LOCAL MD] - Follow up as needed Mode of Arrival: Ambulatory Information source: Patient, Law Enforcement, [facility] Records Notes: This 43-year-old schizophrenic patient is brought the emergency room after being found in the road by [employer]. She was laying in the road and asked the supervising law enforcement analyst to shoot her in the head, stating that "she is lucifer". TRAVEL OUTSIDE OF THE [place] IN LAST 30 DAYS: No - Related Data Allergies/Adverse Reactions: No Known Allergies Allergy (Verified 01/29/19 13:52) Past Medical History - General Information source: Patient, Law Enforcement, [facility] Records - Social History Smoking Status: Unknown if Ever Smoked Smoking Education Provided: No Frequency of alcohol use: Unknown Occupation: Unemployed Lives with: Friend Family History: Reviewed & Not Pertinent, Other - Unknown Patient has suicidal ideation: Yes Patient has homicidal ideation: No - Past Medical History Cardiac Medical History: Reports: Hx Hypercholesterolemia, Hx Hypertension Endocrine Medical History: Reports: Hx Diabetes Mellitus Type 2 Psychiatric Medical History: Reports: Hx Bipolar Disorder, Hx Depression, Hx Schizophrenia Past Surgical History: Reports: Hx Section Review of Systems - Review of Systems -: Yes ROS unobtainable due to patient's medical condition Physical Exam - Vital signs Vitals: Temp Pulse Resp BP Pulse Ox 97.8 F 98 22 H 105/60 99 07/15/19 13:01 07/15/19 13:01 07/15/19 13:01 07/15/19 13:01 07/15/19 13:01 - General General appearance: Alert, Other - Sitting on the edge of the bed looking from one side to the other, talking to nonexistent people. Very pressured speech. U sing her hands to gesture. Not possible to redirect or converse with the patient at this time. - HEENT Head: Normocephalic, Atraumatic Eyes: Normal Pupils: PERRL - Respiratory Respiratory status: No respiratory distress - Cardiovascular Rhythm: Regular - Abdominal Inspection: Obese - Back Back: Normal - Extremities General upper extremity: Normal inspection General lower extremity: Normal inspection - Neurological Neuro grossly intact: Yes - Psychological Associated symptoms: Other - See mental status description under general condition. - Skin Skin Temperature: Warm Skin Moisture: Dry Skin Color: Normal Course - Vital Signs Vital signs: Temp Pulse Resp BP Pulse Ox 97.8 F 98 22 H 105/60 99 07/15/19 13:01 07/15/19 13:01 07/15/19 13:01 07/15/19 13:01 07/15/19 13:01 - Laboratory Result Diagrams: 07/15/19 12:14 07/15/19 12:14 Laboratory results interpreted by me: 07/15/19 07/15/19 12:14 12:14 Chloride 108 H Urine Glucose (UA) 50 H Salicylates < 1.0 L Acetaminophen < 10 L - EKG Interpretation by Pr EKG shows normal: Sinus rhythm, [place], Intervals, QRS Complexes. abnormal: ST-T Waves - Borderline T wave abnormalities Rate: Normal - 79 Rhythm: NSR Discharge - Discharge Clinical Impression: Manic psychosis Schizophrenia Qualifiers: Schizophrenia type: unspecified Qualified Code(s): F20.9 - Schizophrenia, unspecified Disposition: PSYCH HOSP/UNIT Referrals: SEVERIANO MC MD [NO LOCAL MD] - Follow up as needed Scribe Attestation: 07/15/19 13:55 I personally performed the services described in the documentation, reviewed and edited the documentation which was dictated to the scribe in my presence, and it accurately records my words and actions. I personally performed the services described in the documentation, reviewed and edited the documentation which was dictated to the scribe in my presence, and it accurately records my words and actions.
--- NOTE | 2019-07-16 00:05 | EKG REPORT ---
SEVERITY:- BORDERLINE ECG - SINUS RHYTHM BORDERLINE T WAVE ABNORMALITIES : Confirmed by: Edel Vargas MD 16-Jul-2019 00:04:05
[2019-07-16] MEDS: CHLORPROMAZINE HCL INJ 25 MG/1 ML AMPULE IM PRN (10:33)
[2019-07-16] MEDS: HALOPERIDOL LACTATE INJ 5 MG/1 ML VIAL IM SCH (10:33)
[2019-07-16] MEDS: BENZTROPINE MESYLATE INJ 2 MG/2 ML AMPULE IM SCH (10:33)
--- NOTE | 2019-07-16 10:51 | ER Document Report ---
Doctor's Note Notes: 07/16/19 10:49 Chart reviewed patient rounded on. Patient is a lot calmer today than she was yesterday. Reports she feels much better after we gave her her shots. Reports she needs her shots. Also is complaining because a place where she lives does not have any water. She reports the man she lives with would rather buy paraphernalia and turn on the water. PHYSICAL EXAMINATION: GENERAL: Well-appearing and in no acute distress HEAD: Atraumatic, normocephalic. EYES: extraocular movements intact, sclera anicteric, conjunctiva are normal. ENT: nares patent, Moist mucous membranes. NECK: Normal range of motion, supple without lymphadenopathy LUNGS: CTAB and equal. No wheezes rales or rhonchi. HEART: Regular rate and rhythm without murmurs ABDOMEN: Soft, no tenderness. No guarding, no rebound EXTREMITIES: Normal range of motion, NEUROLOGICAL: Cranial nerves grossly intact. PSYCH: Normal mood, normal affect. SKIN: Warm, Dry, normal turgor, no rashes or lesions noted
--- NOTE | 2019-07-16 12:05 | PSYCHOLOGICAL NOTE ---
Psych Note - Psych Note Date seen by psych provider: 07/16/19 Time seen by psych provider: 09:00 Psych Note: Reason for Consult: IVC Patient presents to [facility] ED agitated and paranoid. Patient was found laying in the road by law enforcement and asked them to shoot her in the head. Patient is actively responding to internal stimuli stating she is Allan and then will slumped down and continue engaging stating that she is Lucifer. She is unable to engage in organized and linear conversation. Patient continues to engage in behaviors demonstrating she is responding to internal stimuli i.e. carry on conversations with her hallucinations. Patient is much calmer today however still does not want to engage with clinician. Medication recommendations per [facility]'s contracted psychiatrist Dr. Jacquie CALLE are as follows: 1. Haldol 5 mg twice a day 2. Cogentin 1 mg twice per day 3. Thorazine 100mg every 6 hours as needed Diagnosis: 295.70 (F25.0) Schizoaffective Disorder, Bipolar Type by history Impression/Plan: Patient is recommended to continue IVC. Patient is currently in acute psychosis. She is actively responding to internal stimuli which includes both hallucinations and delusions. Patient was noted to make suicidal comments to law enforcement asking them to shoot her in a head and was found laying in a road. Patient has a long history of mental health and noncompliance on medications. Patient has been accepted to [facility]; transportation has been requested. Dr. Villafana was consulted to care management of this patient; attending physicians in agreement with recommendations and disposition.
[2019-07-16 15:59] VITALS: BP 110/60
== END 2019-07-16 14:30 ==
LOC: ER 11:38
DX: F25.0 Schizoaffective disorder, bipolar type (principal); I10 Essential (primary) hypertension; E11.9 Type 2 diabetes mellitus without complications; E66.9 Obesity, unspecified; R94.31 Abnormal electrocardiogram [ECG] [EKG]
CPT/HCPCS: 93005; 99285; 96372; 36415; 80307 ×4; 85025; 80053; 81001; 93010; J0515 ×2; J3230 ×2; J1630 ×2